=== PATIENT | male | born 1985 | race Caucasian/White ===

== ENCOUNTER 2017-06-09 08:45 | Emergency (ER) | payer OTHER ==
[~2017-06-09] VITALS: Ht 182.9 cm; Wt 73.1 kg
[~2017-06-09 08:45] MED LIST: AMPH30TA2 PO; DIVA500T5 PO; HMLI SC; INSDGI SC; PANT40TA PO; SERT1TAB71 PO
[2017-06-09 08:51] VITALS: TEMP 36.6; Ht 182.9 cm; Wt 73.1 kg
[2017-06-09] MEDS ORDERED: HYDROmorphone INJ 0.5 MG/0.5 ML SYR IV STA (09:00)
[2017-06-09] MEDS ORDERED: OPTIRAY 320 IV PRN (09:15)
[2017-06-09 09:30] LABS: BASO % 0.3 %; BASO ABS # 0.02 K/uL (0-0.2); COMPLETE YES; EOS % 2.3 %; HEMATOCRIT 42.6 % (42-52); IG% 0.2 %; LYMPH % 37.4 %; LYMPH ABS # 2.27 K/uL (1.2-3.4); MEAN CELL VOLUME 86.6 fL (80-100); MEAN CORPUSCULAR HEMOGLOBIN 30.1 pg (25-34); MEAN CORPUSCULAR HGB CONC 34.7 g/dl (32-36); MEAN PLATELET VOLUME 10.8 fL (7.4-10.4); MONO % 6.9 %; NEUT % 52.9 %; PLATELET COUNT 188 K/uL (130-400); RED BLOOD COUNT 4.92 M/uL (4.7-6.1); WHITE BLOOD COUNT 6.07 K/uL (4.8-10.8)
[2017-06-09 09:34] LABS: ISTAT CREATININE 0.8 mg/dl (0.6-1.3); ISTAT HEMOGLOBIN 15.6 g/dl (14.0-18.0); ISTAT IONIZED CALCIUM 1.18 mmol/l (1.12-1.32)
[2017-06-09 09:42] LABS: MANUAL MICROSCOPIC REQUIRED? YES; URINE APPEARANCE CLEAR (CLEAR); URINE BILIRUBIN NEG (NEG); URINE COLOR YELLOW; URINE NITRITE NEG (NEG); URINE PH 5.5 (4.5-7.5); URINE SPECIFIC GRAVITY 1.015 (1.000-1.030); UROBILINOGEN NEG (NEG)
[2017-06-09 09:44] LABS: REVIEW REQ? NO
[2017-06-09 09:49] LABS: URINE RBC 0-4 /hpf (0-4)
[2017-06-09 09:50] LABS: URINE BACTERIA NEG (NEG); ZZUR CULT IF INDIC CLEAN CATCH NO
[2017-06-09 10:04] LABS: BUN/CREATININE RATIO 16.9 (10-20); CALCIUM 9.1 mg/dl (8.5-10.1); CREATININE 0.93 mg/dl (0.60-1.40); POTASSIUM 4.5 mmol/L (3.5-5.1)
[2017-06-09] MEDS ORDERED: NovoLIN-R INSULIN PER UNIT CHARGE IV STA (10:14)
[2017-06-09] MEDS ORDERED: SODIUM CHLORIDE 0.9% 1000ML 1,000 ML IV STA (10:14)
[2017-06-09 10:15] LABS: BETA-HYDROXYBUTYRATE 6.74 mg/dL (0.2-2.81)
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
[2017-06-09] MEDS ORDERED: KETOROLAC TROMETHAMINE 30 MG/ML VIAL IV STA (11:25)
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
[2017-06-09 11:44] VITALS: BP 142/90; PULSE 86; O2SAT 99
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
== END 2017-06-09 11:56 | disposition home or self-care (01) ==
LOC: EDBD 08:45 → C.EDB 08:47
DX: S20.219A Contusion of unspecified front wall of thorax, initial encounter (principal); V43.52XA Car driver injured in collision with other type car in traffic accident, initial encounter; M54.9 Dorsalgia, unspecified; M25.532 Pain in left wrist; E11.9 Type 2 diabetes mellitus without complications; G89.29 Other chronic pain; F17.200 Nicotine dependence, unspecified, uncomplicated; Z79.4 Long term (current) use of insulin; Z79.899 Other long term (current) drug therapy; Z88.5 Allergy status to narcotic agent; Z83.3 Family history of diabetes mellitus; Z80.9 Family history of malignant neoplasm, unspecified; Z82.49 Family history of ischemic heart disease and other diseases of the circulatory system

== ENCOUNTER 2019-08-17 15:55 | Observation (INO) ==
--- NOTE | 2019-08-17 16:41 | CT Scan Report ---
CT chest wo con CLINICAL HISTORY: trauma w/ left chest wall pain COMPARISON STUDY: 06/09/2017 CT DOSE: 567.28 mGycm TECHNIQUE: CT of the thorax was performed from the thoracic inlet to the lung bases. Images are revi ewed in the axial, sagittal, and coronal planes. IV contrast was not administered for this examinatio n. A dose lowering technique was utilized adhering to the principles of ALARA. FINDINGS: Thyroid: Imaged portions of the thyroid gland are normal in appearance. Thoracic aorta: Evaluation for arterial injury is limited given the lack of intravenous contrast. The re is no evidence of thoracic aortic dilatation. There is no evidence for significant mediastinal hem atoma. There is no pericardial effusion Heart: The heart is normal in size and configuration, without pericardial effusion. Lungs and pleural spaces: There are no pleural effusions. There is no pneumomediastinum. There is no pneumothorax. There is no evidence for focal pulmonary consolidation or pulmonary contusion. Mediastinum: There is no evidence of pathologic mediastinal lymphadenopathy. There is a right-sided f at-containing Bochdalek hernia. There is borderline esophageal wall thickening similar to the precedi ng study Hayde: There is no evidence of pathologic hilar adenopathy given the limitations of a noncontrast stud y Axilla: There is no evidence of pathologic axillary lymphadenopathy Upper abdomen: Partially visualized upper abdominal viscera is within normal limits. Skeletal structures: No fractures are visualized. 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 There are congenital anomalies of the right fifth a nd sixth ribs. IMPRESSION: 1. No evidence of acute intrathoracic injury given the limitations of a noncontrast study 2. Fat-containing right-sided Bochdalek hernia 3. 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 4. 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 ACT 112: Negative or not required by law. Electronically signed by: Neville Quinones M.D. 08/17/2019 4:40 PM
[2019-08-17 16:49] LABS: Basophils # (auto) 0.02 K/uL (0-0.2); Basophils % (auto) 0.5 %; Eosinophils # (auto) 0.13 K/uL (0-0.5); Eosinophils % (auto) 3.3 %; Hemoglobin 14.7 g/dL (14.0-18.0); Immature Granulocytes # (auto) 0.01 K/uL (0.00-0.02); Immature Granulocytes % (auto) 0.3 %; Lymphocytes # (auto) 1.07 K/uL (1.2-3.4); Lymphocytes % (auto) 27.2 %; Mean Corpuscular Hemoglobin 29.9 pg (25-34); Mean Corpuscular Volume 85.5 fL (80-100); Mean Platelet Volume 11.5 fL (7.4-10.4); Monocytes # (auto) 0.32 K/uL (0.11-0.59); Monocytes % (auto) 8.1 %; Neutrophils # (auto) 2.39 K/uL (1.4-6.5); Neutrophils % (auto) 60.6 %; Nucleated RBC # (auto) 0.03 K/uL (0-0); Nucleated RBC % (auto) 0.8 %; Platelet Count 172 K/uL (130-400); RDW Coefficient of Variation 12.5 % (11.5-14.5); Red Blood Count 4.91 M/uL (4.7-6.1); White Blood Count 3.94 K/uL (4.8-10.8)
[2019-08-17 17:15] LABS: Acetaminophen < 2 ug/ml (10-30); Salicylate < 1.7 mg/dl (2.8-20)
[2019-08-17 17:19] LABS: Alanine Aminotransferase 18 U/L (12-78); Alkaline Phosphatase 73 U/L (45-117); Aspartate Aminotransferase 9 U/L (15-37); BUN Creatinine Ratio 16.6 (10-20); Blood Urea Nitrogen 17 mg/dl (7-18); Calcium 8.4 mg/dl (8.5-10.1); Carbon Dioxide 27 mmol/L (21-32); Chloride 101 mmol/L (98-107); Est GFR (African American) 112.2; Est GFR (Non-African American) 96.8; Glucose 436 mg/dl (70-99); Potassium 4.4 mmol/L (3.5-5.1); Sodium 134 mmol/L (136-145)
[2019-08-17 17:25] LABS: Albumin Globulin Ratio 0.9 (0.9-2); Bilirubin,Total 0.4 mg/dl (0.2-1); Globulin 3.5 gm/dl (2.5-4.0); Thyroid Stimulating Hormone 0.347 uIu/ml (0.300-4.500); Total Protein 6.5 gm/dl (6.4-8.2)
[2019-08-17 18:08] LABS: Appearance Urine Clear (Clear); Bacteria Urine Automated Negative (Negative); Bilirubin Urine Negative (Negative); Blood Urine Trace (Negative); Cast Urine Automated 0 /lpf (0-5); Color Urine Yellow; Glucose Urine UA 3+ (Negative); Ketones Urine Trace (Negative); Leukocyte Esterase Urine Negative (Negative); Nitrite Urine Negative (Negative); Protein Urine Negative (Negative); RBC Urine Automated 0-4 /hpf (0-4); Specific Gravity Urine 1.042 (1.000-1.030); Urobilinogen Urine Negative (Negative); WBC Urine Automated 0 /hpf (0-5)
[2019-08-17 18:41] LABS: Amphetamines+Metham, Urine Pos (Neg); Barbiturates, Urine Neg (Neg); Benzodiazepine, Urine Neg (Neg); Cocaine, Urine Neg (Neg); MDMA (Ecstacy), Urine Neg (Neg); Methadone, Urine Neg (Neg); Opiate, Urine Neg (Neg); Phencyclidine, Urine Neg (Neg)
--- NOTE | 2019-08-17 21:06 | Emergency Department Note ---
Entered by Silvestre Fuentes acting as a scribe for History of Present Illness General Chief complaint: Mental Health Evaluation Stated complaint: MENTAL HEALTH EVAL, AND RIB INJURY Time Seen by Provider: 08/17/19 15:55 Source: patient Limitations: no limitations History of Present Illness Onset (ago): day(s) 2 Location: left (ribs) Pain Consistency: + constant Maximum Pain Intensity: 7 Quality: + constant Associated symptoms: + denies other symptoms (head or neck pain) and + other (suicidal ideations, meth use) The patient is a 34 year old male who presents to the Emergency Room for a mental health evaluation. The patient states he has been clean from drugs for 6 months until two weeks ago. He states he attempted suicide by using IV methamphetamine two days ago. He states he has PTSD, anxiety, and depression. He notes he has not been taking his medications for months. He states he fell from standing up two days ago when he was attempting suicide. He states he hit his ribs on a toilet. He denies having head or neck pain. He states he has not tried to commit suicide before. He states he wants to be admitted. He notes he has type 1 diabetes. Home Medications Home Medications Medication Instructions Recorded Confirmed Type insulin aspart U-100 [Novolog 1 sliding scale dose SUBCUT 02/08/19 02/08/19 History U-100 Insulin aspart] USEASDIRECTD insulin glargine [Lantus U-100 25 unit SUBCUT BID 02/08/19 02/08/19 History Insulin] Allergies Allergy/AdvReac Type Severity Reaction Status Date / Time morphine Allergy Intermediate HIVES Verified 02/08/19 16:02 Past Med/Surg History Medical History GI bleed Hyperglycemia No significant family history Superficial thrombophlebitis Surgical History No significant past surgical history Social History Preferred Language: Turkish Feels Safe at Home: Yes Smoking Status: Current every day smoker Review of Systems See HPI for pertinent positives & negatives. and A total of 10 systems reviewed and were otherwise negative Physical Exam Vital Signs Vital Signs - 24 hr 08/17/19 16:04 08/17/19 17:55 Temperature 36.6 C Temperature Source Oral Pulse Rate 107 H Pulse Rate [Right Radial] 92 H Pulse Rhythm [Right Radial] Regular Pulse Strength [Right Radial] Normal Respiratory Rate 20 16 Respiratory Effort / Characteristics Non-Labored Spontaneous Respiratory Depth Normal Respiratory Pattern Regular Blood Pressure 137/88 Blood Pressure [Right Arm] 144/88 H Blood Pressure Mean 104 Blood Pressure Mean [Right Arm] 106 Blood Pressure Position [Right Arm] Lying Pulse Oximetry 95 96 Oxygen Delivery Method Room Air Room Air Sepsis Recent Fever Within 48 Hours No Sepsis New/Unexplained Change in Mental Status No Sepsis Action Taken by Nursing No Action Required GENERAL: Non-toxic . Sitting up in bed. Annoyed. EYE EXAM: normal conjunctiva, PERRL and EOM's grossly intact OROPHARYNX: no exudate, no erythema, lips, buccal mucosa, and tongue normal and mucous membranes are moist HEAD: NC/AT NECK: supple, no nuchal rigidity, no adenopathy, non-tender LUNGS: Clear to auscultation. Normal chest wall mechanics HEART: no murmurs, S1 normal and S2 normal CHEST: Tenderness over the left anterior chest wall, ribs 4 through 7. ABDOMEN: abdomen soft, non-tender, normo-active bowel sounds, no masses, no rebound or guarding. BACK: Back is symmetrical on inspection and there is no deformity, no midline tenderness, no CVA tenderness. SKIN: no rashes and no bruising UPPER EXTREMITIES: upper extremities are grossly normal. LOWER EXTREMITIES: No pitting edema. NEURO EXAM: Normal sensorium, cranial nerves II-XII grossly intact, normal speech, no gross weakness of arms, no gross weakness of legs. PSYCH: Admits to with suicide attempt and overdose. Course Course ED COURSE: Vital signs were reviewed and showed hypertension The patients medical record was reviewed The above diagnostic studies were performed and reviewed. ED treatments and interventions as stated above. 9: The patient was evaluated in room A2. A complete history and physical examination was performed. 1819: I reevaluated the patient. I updated the patient. He is agitated. He notes he drank right before he came to the ED. 1927: Upon reevaluation, the patient is getting admitted. He states he was taking 14 mg of Xanax and drinking half a case of beer a day. I discussed my findings with the patient and he understands and agrees with the treatment plan. 1939: I discussed the patient's case with Dr. Iyer - [facility] Hospitalist. He will evaluate the patient for further management. Based on the patients age, coexisting illnesses, exam and lab findings the decision to treat as an inpatient was made. The patient remained stable while under my care. The patient will be evaluated for further management. Medical Decision Making Differential Diagnosis Differential diagnoses considered include mood disorder, infection, hypoglycemia, electrolyte abnormalities, cardiac sources, intracerebral event, toxicologic, neurologic, major intracranial, cervical, spinal, thoracic, abdominal, pelvic and neurologic injury. Fracture, contusion, sprain, strain, laceration, abrasions included as well. Medical Records Attestation: I reviewed the patient's medical records. Home Medications Current Medication List: was personally reviewed by me Laboratory Data Attestation: I reviewed the patient's lab results. Result diagrams: 08/17/19 16:35 08/17/19 16:35 Lab Results 08/17/19 08/17/19 08/17/19 Range/Units 16:35 16:35 16:35 WBC 3.94 L (4.8-10.8) K/uL RBC 4.91 (4.7-6.1) M/uL Hgb 14.7 (14.0-18.0) g/dL Hct 42.0 (42-52) % MCV 85.5 (80-100) fL MCH 29.9 (25-34) pg MCHC 35.0 (32-36) g/dL RDW Std Deviation 39.0 (36.4-46.3) fL RDW Coeff of Yahir 12.5 (11.5-14.5) % Plt Count 172 (130-400) K/uL MPV 11.5 H (7.4-10.4) fL Immature Gran % (Auto) 0.3 % Neut % (Auto) 60.6 % Lymph % (Auto) 27.2 % Knott % (Auto) 8.1 % Eos % (Auto) 3.3 % Baso % (Auto) 0.5 % Immature Gran # (Auto) 0.01 (0.00-0.02) K/uL Neut # (Auto) 2.39 (1.4-6.5) K/uL Lymph # (Auto) 1.07 L (1.2-3.4) K/uL Knott # (Auto) 0.32 (0.11-0.59) K/uL Eos # (Auto) 0.13 (0-0.5) K/uL Baso # (Auto) 0.02 (0-0.2) K/uL Absolute Nucleated RBC 0.03 H (0-0) K/uL Nucleated RBC % (auto) 0.8 % Sodium 134 L (136-145) mmol/L Potassium 4.4 (3.5-5.1) mmol/L Chloride 101 (98-107) mmol/L Carbon Dioxide 27 (21-32) mmol/L Anion Gap 6.0 (3-11) BUN 17 (7-18) mg/dl Creatinine 1.02 (0.6-1.4) mg/dl Est Cr Clr Drug Dosing Not Reportable Est GFR ( Amer) 112.2 Est GFR (Non-Af Amer) 96.8 BUN/Creatinine Ratio 16.6 (10-20) Glucose 436 H* (70-99) mg/dl POC Glucose (70-99) mg/dl Calcium 8.4 L (8.5-10.1) mg/dl Total Bilirubin 0.4 (0.2-1) mg/dl AST 9 L (15-37) U/L ALT 18 (12-78) U/L Alkaline Phosphatase 73 (45-117) U/L Total Protein 6.5 (6.4-8.2) gm/dl Albumin 3.0 L (3.4-5.0) gm/dl Globulin 3.5 (2.5-4.0) gm/dl Albumin/Globulin Ratio 0.9 (0.9-2) Beta-Hydroxybutyric Acd (0.2-2.81) mg/dl TSH 0.347 (0.300-4.500) uIu/ml Urine Color Urine Appearance (Clear) Urine pH (4.5-7.5) Ur Specific [place] (1.000-1.030) Urine Protein (Negative) Urine Glucose (UA) (Negative) Urine Ketones (Negative) Urine Blood (Negative) Urine Nitrite (Negative) Urine Bilirubin (Negative) Urine Urobilinogen (Negative) Ur Leukocyte Esterase (Negative) Urine WBC (Auto) (0-5) /hpf Urine RBC (Auto) (0-4) /hpf U Hyaline Cast (Auto) (0-5) /lpf U Epithel Cells (Auto) (0-5) /lpf Urine Bacteria (Auto) (Negative) Salicylates < 1.7 L (2.8-20) mg/dl Urine Opiates Screen (Neg) Ur Methadone, Qual (Neg) Acetaminophen < 2 L (10-30) ug/ml Urine Barbiturates (Neg) Ur Phencyclidine (PCP) (Neg) U Amphetamin/Meth Scrn (Neg) MDMA (Ecstasy) Screen (Neg) U Benzodiazepines Scrn (Neg) Ur Cocaine Metabolite (Neg) U Marijuana (THC) Screen (Neg) Ethyl Alcohol mg/dL (0-3) mg/dl 08/17/19 08/17/19 08/17/19 Range/Units 16:35 17:55 17:55 WBC (4.8-10.8) K/uL RBC (4.7-6.1) M/uL Hgb (14.0-18.0) g/dL Hct (42-52) % MCV (80-100) fL MCH (25-34) pg MCHC (32-36) g/dL RDW Std Deviation (36.4-46.3) fL RDW Coeff of Yahir (11.5-14.5) % Plt Count (130-400) K/uL MPV (7.4-10.4) fL Immature Gran % (Auto) % Neut % (Auto) % Lymph % (Auto) % Knott % (Auto) % Eos % (Auto) % Baso % (Auto) % Immature Gran # (Auto) (0.00-0.02) K/uL Neut # (Auto) (1.4-6.5) K/uL Lymph # (Auto) (1.2-3.4) K/uL Knott # (Auto) (0.11-0.59) K/uL Eos # (Auto) (0-0.5) K/uL Baso # (Auto) (0-0.2) K/uL Absolute Nucleated RBC (0-0) K/uL Nucleated RBC % (auto) % Sodium (136-145) mmol/L Potassium (3.5-5.1) mmol/L Chloride (98-107) mmol/L Carbon Dioxide (21-32) mmol/L Anion Gap (3-11) BUN (7-18) mg/dl Creatinine (0.6-1.4) mg/dl Est Cr Clr Drug Dosing Est GFR ( Amer) Est GFR (Non-Af Amer) BUN/Creatinine Ratio (10-20) Glucose (70-99) mg/dl POC Glucose (70-99) mg/dl Calcium (8.5-10.1) mg/dl Total Bilirubin (0.2-1) mg/dl AST (15-37) U/L ALT (12-78) U/L Alkaline Phosphatase (45-117) U/L Total Protein (6.4-8.2) gm/dl Albumin (3.4-5.0) gm/dl Globulin (2.5-4.0) gm/dl Albumin/Globulin Ratio (0.9-2) Beta-Hydroxybutyric Acd (0.2-2.81) mg/dl TSH (0.300-4.500) uIu/ml Urine Color Yellow Urine Appearance Clear (Clear) Urine pH 5.0 (4.5-7.5) Ur Specific [place] 1.042 H (1.000-1.030) Urine Protein Negative (Negative) Urine Glucose (UA) 3+ H (Negative) Urine Ketones Trace H (Negative) Urine Blood Trace H (Negative) Urine Nitrite Negative (Negative) Urine Bilirubin Negative (Negative) Urine Urobilinogen Negative (Negative) Ur Leukocyte Esterase Negative (Negative) Urine WBC (Auto) 0 (0-5) /hpf Urine RBC (Auto) 0-4 (0-4) /hpf U Hyaline Cast (Auto) 0 (0-5) /lpf U Epithel Cells (Auto) 5-10 H (0-5) /lpf Urine Bacteria (Auto) Negative (Negative) Salicylates (2.8-20) mg/dl Urine Opiates Screen Neg (Neg) Ur Methadone, Qual Neg (Neg) Acetaminophen (10-30) ug/ml Urine Barbiturates Neg (Neg) Ur Phencyclidine (PCP) Neg (Neg) U Amphetamin/Meth Scrn Pos H (Neg) MDMA (Ecstasy) Screen Neg (Neg) U Benzodiazepines Scrn Neg (Neg) Ur Cocaine Metabolite Neg (Neg) U Marijuana (THC) Screen Neg (Neg) Ethyl Alcohol mg/dL < 3.0 (0-3) mg/dl 08/17/19 Range/Units 18:14 WBC (4.8-10.8) K/uL RBC (4.7-6.1) M/uL Hgb (14.0-18.0) g/dL Hct (42-52) % MCV (80-100) fL MCH (25-34) pg MCHC (32-36) g/dL RDW Std Deviation (36.4-46.3) fL RDW Coeff of Yahir (11.5-14.5) % Plt Count (130-400) K/uL MPV (7.4-10.4) fL Immature Gran % (Auto) % Neut % (Auto) % Lymph % (Auto) % Knott % (Auto) % Eos % (Auto) % Baso % (Auto) % Immature Gran # (Auto) (0.00-0.02) K/uL Neut # (Auto) (1.4-6.5) K/uL Lymph # (Auto) (1.2-3.4) K/uL Knott # (Auto) (0.11-0.59) K/uL Eos # (Auto) (0-0.5) K/uL Baso # (Auto) (0-0.2) K/uL Absolute Nucleated RBC (0-0) K/uL Nucleated RBC % (auto) % Sodium (136-145) mmol/L Potassium (3.5-5.1) mmol/L Chloride (98-107) mmol/L Carbon Dioxide (21-32) mmol/L Anion Gap (3-11) BUN (7-18) mg/dl Creatinine (0.6-1.4) mg/dl Est Cr Clr Drug Dosing Est GFR ( Amer) Est GFR (Non-Af Amer) BUN/Creatinine Ratio (10-20) Glucose (70-99) mg/dl POC Glucose 252 H (70-99) mg/dl Calcium (8.5-10.1) mg/dl Total Bilirubin (0.2-1) mg/dl AST (15-37) U/L ALT (12-78) U/L Alkaline Phosphatase (45-117) U/L Total Protein (6.4-8.2) gm/dl Albumin (3.4-5.0) gm/dl Globulin (2.5-4.0) gm/dl Albumin/Globulin Ratio (0.9-2) Beta-Hydroxybutyric Acd (0.2-2.81) mg/dl TSH (0.300-4.500) uIu/ml Urine Color Urine Appearance (Clear) Urine pH (4.5-7.5) Ur Specific [place] (1.000-1.030) Urine Protein (Negative) Urine Glucose (UA) (Negative) Urine Ketones (Negative) Urine Blood (Negative) Urine Nitrite (Negative) Urine Bilirubin (Negative) Urine Urobilinogen (Negative) Ur Leukocyte Esterase (Negative) Urine WBC (Auto) (0-5) /hpf Urine RBC (Auto) (0-4) /hpf U Hyaline Cast (Auto) (0-5) /lpf U Epithel Cells (Auto) (0-5) /lpf Urine Bacteria (Auto) (Negative) Salicylates (2.8-20) mg/dl Urine Opiates Screen (Neg) Ur Methadone, Qual (Neg) Acetaminophen (10-30) ug/ml Urine Barbiturates (Neg) Ur Phencyclidine (PCP) (Neg) U Amphetamin/Meth Scrn (Neg) MDMA (Ecstasy) Screen (Neg) U Benzodiazepines Scrn (Neg) Ur Cocaine Metabolite (Neg) U Marijuana (THC) Screen (Neg) Ethyl Alcohol mg/dL (0-3) mg/dl Imaging Data Radiologist's Impression: Radiology results as stated below per my review and the radiologist's interpretation: CT chest wo con CLINICAL HISTORY: trauma w/ left chest wall pain COMPARISON STUDY: 06/09/2017 CT DOSE: 567.28 mGycm TECHNIQUE: CT of the thorax was performed from the thoracic inlet to the lung bases. Images are reviewed in the axial, sagittal, and coronal planes. IV contra st was not administered for this examination. A dose lowering technique was utilized adhering to the principles of ALARA. FINDINGS: Thyroid: Imaged portions of the thyroid gland are normal in appearance. Thoracic aorta: Evaluation for arterial injury is limited given the lack of intravenous contrast. There is no evidence of thoracic aortic dilatation. There is no evidence for significant mediastinal hematoma. There is no pericardial effusion Heart: The heart is normal in size and configuration, without pericardial effusion. Lungs and pleural spaces: There are no pleural effusions. There is no pneumomediastinum. There is no pneumothorax. There is no evidence for focal pulmonary consolidation or pulmonary contusion. Mediastinum: There is no evidence of pathologic mediastinal lymphadenopathy. There is a right-sided fat-containing Bochdalek hernia. There is borderline esophageal wall thickening similar to the preceding study Hayde: There is no evidence of pathologic hilar adenopathy given the limitations of a noncontrast study Axilla: There is no evidence of pathologic axillary lymphadenopathy Upper abdomen: Partially visualized upper abdominal viscera is within normal limits. Skeletal structures: No fractures are visualized. 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 IMPRESSION: 1. No evidence of acute intrathoracic injury given the limitations of a noncontrast study 2. Fat-containing right-sided Bochdalek hernia 3. 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 4. 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 ACT 112: Negative or not required by law. Electronically signed by: Neville Quinones M.D. 08/17/2019 4:40 PM Blood Pressure Blood Pressure Findings: Elevated blood pressure Blood Pressure Disposition: further management by hospitalist JAX Narrative Patient is a 34-year-old male who presents the ER does. He presented there as he notes he tried to overdose on methamphetamine 2 days ago. Initially denies using anything else other than methamphetamine and intermittent alcohol use. Blood work was obtained. Labs show mild leukopenia at 3.9. No significant leukocytosis. BMP with mild hypokalemia. Glucose was elevated at 436. He is a type I diabetic. He given self insulin prior to arrival. Trend down to 252. He is not a gap. Nothing to suggest DKA. LFTs were unremarkable. TSH was normal. UA was clean. On reevaluation patient notes that he uses 14 mg of Xanax a day for the past 2 weeks in combination with drinking a half a case of alcohol per day. Benzos are negative on urine drug test. Unable to confirm alcohol. With these statements will be extremely difficult to get this gentleman placed at any point. Updated with bedside. Discussed with hospitalist for observation secondary to possible withdrawal although we knew will need to come in from a psychiatric standpoint with the attempted suicide. Indication: Medical clearance Patient, with Family History of hypertension, was first seen at 1559 hrs and the observation time began at 1559 hrs and was necessary in order to determine if the patient was stable enough for disposition to psych and avoid unnecessary admission. Upon re-evaluation, 1940 hours of observation revealed that the patient should be admitted. Disposition date and time 08/17/2019 at 1940. Impression & Plan Acute flank pain, Suicidal ideations, Drug abuse, Alcohol abuse, Hyperglycemia Discharge Plan Visit Data Chief Complaint: Mental Health Evaluation Stated Complaint: MENTAL HEALTH EVAL, AND RIB INJURY ED Provider: Dru Arias Discharge Problem: Acute flank pain, Suicidal ideations, Drug abuse, Alcohol abuse, Hyperglycemia Forms Stand Alone Forms: My [facility], Suicide Prevention Resources Prescriptions Prescriptions: No Action Lantus U-100 Insulin 100 unit/mL Solution 25 unit SUBCUT BID RF: 0 Novolog U-100 Insulin aspart 100 unit/mL Solution 1 sliding scale dose SUBCUT USEASDIRECTD RF: 0 Referrals Referrals: PCP,NO [Primary Care Provider] - The scribe's documentation has been prepared under my direction and personally reviewed by me in its entirety. I confirm that the note above accurately reflects all work, treatment, procedures, and medical decision making performed by me.
--- NOTE | 2019-08-17 21:26 | History & Physical Report ---
Date of Service August 17, 2019 Assessment & Plan (1) Alcohol abuse: Mr. Rigo Vazquez is a 34 y/o male with past medical hx of DM1, substance abuse, prior psych hospitalizations, anxiety, depression, who presented for EtOH/Drug crisis. - Medical Clearance prior to discharge to rehab - No current suicidal ideations but will give 1-on-1 since suicide attempt a couple of days ago. - AWSS protocol with Ativan 1mg PO PRN per protocol; at risk for withdrawal, reports no prior EtOH withdrawals/DTs/seizure hx - EtOH was negative, he is about possibly 10 hours from last drink (approx 9- 11am) - Banana bag x1 now, Thiamine PO qAM, folic acid PO qAM Code: Full Code DVT ppx: Lovenox 40mg subq q24h FENGI: Type 1 Diabetic, safe tray Dispo: PCU/tele (2) Drug abuse: - reported benzo use daily for 2 weeks - reported Crystal meth use for 2 weeks, last used 2-3 days ago via IV but usually smokes/snorts - Drug UA only positive for Amphetamines; meth confirm pending - negative for benzos, at risk for withdrawal, monitor - Negative Acetaminophen and ASA (3) Suicidal ideations: - No current suicidal ideations but will give 1-on-1 since suicide attempt a couple of days ago. (4) Hyperglycemia: Type 1 DM, says is on 70/30 insulin Will treat with Levemir 20units subq BID CF 20 Ratio 1:7 glucose ACHS Currently in 250s, no anion gap, ketones in urine, but B-hydroxy acid wasn't reported bc of hemolysis of sample (5) Rib contusion: - negative chest CT for fracture - trace blood but non-specific for kidney injury, trend creatinine in AM History of Present Illness Chief Complaint: Drug/EtOH Withdrawal Primary Care Provider: NO PCP Mr. Rigo Vazquez is a 34 y/o male with past medical hx of DM1, substance abuse, prior psych hospitalizations, anxiety, depression, who presented for EtOH/Drug crisis. He notes that has a history of substance abuse and was perviously clean for the past 6 months before relapsing. He notes that he started to use Crystal Meth about 2 weeks ago with snorting and smoking. He states that he attempted suicide about 2 days ago by injecting Crystal Meth IV into his Left AC and passed out and hit his left ribs on bathroom sink. He notes that he doesn't share needles, no Hx of HIV, Hep B or C. He notes drinking alcohol daily for many years usually 6-12 beers per day and last drink was this AM when he had a Alba mixed drink. He denies prior alcohol withdrawal. He notes not taking his insulin for his Diabetes type 1 as well. He notes that he would like to go to rehab. He notes being on psych meds prior but ran out of his meds then started to medicate himself via street drugs. He notes he has been using Benzos "off the street" to help with his Crystal Meth come downs. Rigo reported to staff taking 6-13 Xanax per day. He notes not taking any benzos or meth for the past 2-3 days. He states he has had some hallucinations visual of shadows, none currently, no auditory. He doesn't have any current suicidal ideations; he wants help with his current anxiety and help with sobriety. He would to go to rehab. ED requested admission for medical clearance prior to discharge to rehab. Currently, he only has pain to his left ribs from fall; his Chest CT was negative for fractures. No treatments given in ED except for food. He did have a glucose in lab in 400s, but recent POC was 250. Urine Drug positive for Amph, negative for EtOH and benzos. Allergies Allergy/AdvReac Type Severity Reaction Status Date / Time morphine Allergy Intermediate HIVES Verified 08/17/19 21:28 Home Medications Home Medications Medication Instructions Recorded Confirmed Type alprazolam [Xanax] 0 mg PO UD PRN 08/17/19 08/17/19 History insulin asp prt-insulin aspart 25 unit SUBCUT BID 08/17/19 08/17/19 History [Novolog Mix 70-30FlexPen U-100] Past Med/Surg History Medical History GI bleed Hyperglycemia No significant family history Superficial thrombophlebitis Surgical History No significant past surgical history Social History Preferred Language: Italian Beliefs That Will Affect Care: None Current Living Situation: Family Feels Safe at Home: Yes Safety Concerns: Feels Safe At This Time Smoking Status: Current every day smoker Cigarettes Per Day: 20 ; Hx Alcohol Use: Yes Alcohol type: hard liquor Hx Substance Use: Yes substance use type: IV drugs and methamphetamine Substance Use Type Other:: 08-16-19 Review of Systems Review of Systems: Limited by mental health condition Constitutional: no fever and no chills Eyes: no eye pain and no worsening vision Ear, Nose, Mouth, Throat: no nasal congestion and no sore throat Respiratory: no dyspnea and no hemoptysis Cardiovascular: no lightheadedness and no edema Gastrointestinal: no abdominal pain, no nausea and no vomiting Genitourinary: no dysuria and no difficulty urinating Musculoskeletal: no back pain and no neck pain Neurologic: no generalized weakness and no numbness Psychiatric: as per Subjective / HPI Physical Exam Constitutional: WD/WN, vitals as above comfortable; no acute distress Eyes: PERRL, conjunctivae normal, anicteric sclerae ENMT: external ear and nose normal, oropharynx normal Neck: normal visual inspection and trachea midline Respiratory: normal respiratory effort, lungs clear to auscultation Cardiovascular: RRR, no murmur, no edema left sided chest wall tenderness reproducing pain Gastrointestinal (Abdomen): Percussion/Palpation: abdomen soft; abdomen nontender, no guarding and abdomen not rigid Musculoskeletal: Head/Neck/Chest: normocephalic and head atraumatic Extremities: strength 5/5 throughout Skin: no rashes, warm and dry Neurologic: moves all extremities and awake Psychiatric: Orientation: alert and oriented x 3 Affect: + anxious affect Mood: + anxious mood Suicidal Thoughts: denies suicidal thoughts Homicidal Thoughts: denies homicidal thoughts Results & Data Vital Signs (Past 12 Hours) Vital Signs Temp Pulse Pulse Resp BP BP Pulse Ox 08/17/19 17:55 92 H 16 144/88 H 96 08/17/19 16:04 36.6 C 107 H 20 137/88 95 Laboratory Results Laboratory Results - last 24 hr 08/17/19 08/17/19 08/17/19 16:35 16:35 16:35 WBC 3.94 L RBC 4.91 Hgb 14.7 Hct 42.0 MCV 85.5 MCH 29.9 MCHC 35.0 RDW Std Deviation 39.0 RDW Coeff of Yahir 12.5 Plt Count 172 MPV 11.5 H Immature Gran % (Auto) 0.3 Neut % (Auto) 60.6 Lymph % (Auto) 27.2 [place] % (Auto) 8.1 Eos % (Auto) 3.3 Baso % (Auto) 0.5 Immature Gran # (Auto) 0.01 Neut # (Auto) 2.39 Lymph # (Auto) 1.07 L [place] # (Auto) 0.32 Eos # (Auto) 0.13 Baso # (Auto) 0.02 Absolute Nucleated RBC 0.03 H Nucleated RBC % (auto) 0.8 Sodium 134 L Potassium 4.4 Chloride 101 Carbon Dioxide 27 Anion Gap 6.0 BUN 17 Creatinine 1.02 Est Cr Clr Drug Dosing Not Reportable Est GFR ( Amer) 112.2 Est GFR (Non-Af Amer) 96.8 BUN/Creatinine Ratio 16.6 Glucose 436 H* POC Glucose Calcium 8.4 L Total Bilirubin 0.4 AST 9 L ALT 18 Alkaline Phosphatase 73 Total Protein 6.5 Albumin 3.0 L Globulin 3.5 Albumin/Globulin Ratio 0.9 Beta-Hydroxybutyric Acd TSH 0.347 Urine Color Urine Appearance Urine pH Ur Specific [place] Urine Protein Urine Glucose (UA) Urine Ketones Urine Blood Urine Nitrite Urine Bilirubin Urine Urobilinogen Ur Leukocyte Esterase Urine WBC (Auto) Urine RBC (Auto) U Hyaline Cast (Auto) U Epithel Cells (Auto) Urine Bacteria (Auto) Salicylates < 1.7 L Urine Opiates Screen Ur Methadone, Qual Acetaminophen < 2 L Urine Barbiturates Ur Phencyclidine (PCP) U Amphetamines Confirm U Amphetamin/Meth Scrn U Methamphetamin Confrm MDMA (Ecstasy) Screen U Benzodiazepines Scrn Ur Cocaine Metabolite U Marijuana (THC) Screen Drug Screen Comment Ethyl Alcohol mg/dL 08/17/19 08/17/19 08/17/19 16:35 17:55 17:55 WBC RBC Hgb Hct MCV MCH MCHC RDW Std Deviation RDW Coeff of Yahir Plt Count MPV Immature Gran % (Auto) Neut % (Auto) Lymph % (Auto) [place] % (Auto) Eos % (Auto) Baso % (Auto) Immature Gran # (Auto) Neut # (Auto) Lymph # (Auto) [place] # (Auto) Eos # (Auto) Baso # (Auto) Absolute Nucleated RBC Nucleated RBC % (auto) Sodium Potassium Chloride Carbon Dioxide Anion Gap BUN Creatinine Est Cr Clr Drug Dosing Est GFR ( Amer) Est GFR (Non-Af Amer) BUN/Creatinine Ratio Glucose POC Glucose Calcium Total Bilirubin AST ALT Alkaline Phosphatase Total Protein Albumin Globulin Albumin/Globulin Ratio Beta-Hydroxybutyric Acd TSH Urine Color Yellow Urine Appearance Clear Urine pH 5.0 Ur Specific [place] 1.042 H Urine Protein Negative Urine Glucose (UA) 3+ H Urine Ketones Trace H Urine Blood Trace H Urine Nitrite Negative Urine Bilirubin Negative Urine Urobilinogen Negative Ur Leukocyte Esterase Negative Urine WBC (Auto) 0 Urine RBC (Auto) 0-4 U Hyaline Cast (Auto) 0 U Epithel Cells (Auto) 5-10 H Urine Bacteria (Auto) Negative Salicylates Urine Opiates Screen Neg Ur Methadone, Qual Neg Acetaminophen Urine Barbiturates Neg Ur Phencyclidine (PCP) Neg U Amphetamines Confirm U Amphetamin/Meth Scrn Pos H U Methamphetamin Confrm MDMA (Ecstasy) Screen Neg U Benzodiazepines Scrn Neg Ur Cocaine Metabolite Neg U Marijuana (THC) Screen Neg Drug Screen Comment Ethyl Alcohol mg/dL < 3.0 08/17/19 08/17/19 08/17/19 17:55 18:14 20:59 WBC RBC Hgb Hct MCV MCH MCHC RDW Std Deviation RDW Coeff of Yahir Plt Count MPV Immature Gran % (Auto) Neut % (Auto) Lymph % (Auto) [place] % (Auto) Eos % (Auto) Baso % (Auto) Immature Gran # (Auto) Neut # (Auto) Lymph # (Auto) [place] # (Auto) Eos # (Auto) Baso # (Auto) Absolute Nucleated RBC Nucleated RBC % (auto) Sodium Potassium Chloride Carbon Dioxide Anion Gap BUN Creatinine Est Cr Clr Drug Dosing Est GFR ( Amer) Est GFR (Non-Af Amer) BUN/Creatinine Ratio Glucose POC Glucose 252 H 280 H Calcium Total Bilirubin AST ALT Alkaline Phosphatase Total Protein Albumin Globulin Albumin/Globulin Ratio Beta-Hydroxybutyric Acd TSH Urine Color Urine Appearance Urine pH Ur Specific [place] Urine Protein Urine Glucose (UA) Urine Ketones Urine Blood Urine Nitrite Urine Bilirubin Urine Urobilinogen Ur Leukocyte Esterase Urine WBC (Auto) Urine RBC (Auto) U Hyaline Cast (Auto) U Epithel Cells (Auto) Urine Bacteria (Auto) Salicylates Urine Opiates Screen Ur Methadone, Qual Acetaminophen Urine Barbiturates Ur Phencyclidine (PCP) U Amphetamines Confirm Pending U Amphetamin/Meth Scrn U Methamphetamin Confrm Pending MDMA (Ecstasy) Screen U Benzodiazepines Scrn Ur Cocaine Metabolite U Marijuana (THC) Screen Drug Screen Comment Pending Ethyl Alcohol mg/dL Diagnostic Findings CT Chest W/o 1. No evidence of acute intrathoracic injury given the limitations of a noncontrast study 2. Fat-containing right-sided Bochdalek hernia 3. 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 4. 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 Code Status & VTE Plan Code Status Full Code VTE Prophylaxis Plan VTE Prophylaxis will be ordered: Yes Supervising Physician Co-Signing Physician Notes Patient was seen and examined by me personally. I reviewed the chart, the orders and discussed the case in detail with Dr. Gilberto Rodriguez DO . I read this H&P and agree with its contents to entirety.
[2019-08-17] MEDS: INSULIN GLARGINE SOLOSTAR 100 UNITS/ML 3 ML PEN SC SCH (21:45)
[2019-08-17] MEDS ORDERED: POLYETHYLENE (MIRALAX) 17 GM PACK PO PRN (22:35)
[2019-08-17] MEDS ORDERED: CARBOHYDRATES FOR HYPOGLYCEMIA PO PRN (22:35)
[2019-08-17] MEDS ORDERED: GLUCOSE 10 TABS/TUBE PO PRN (22:35)
[2019-08-17] MEDS ORDERED: MAGNESIUM HYDROXIDE SUSP 30 ML UDC PO PRN (22:35)
[2019-08-17] MEDS ORDERED: GLUCOSE 40% GEL 15 GM TUBE PO PRN (22:35)
[2019-08-17] MEDS ORDERED: DEXTROSE 50% 50 ML SYRINGE IV PRN (22:35)
[2019-08-17] MEDS ORDERED: GLUCAGON FOR INJ 1 MG VIAL SQ PRN (22:35)
[2019-08-17] MEDS ORDERED: LORazepam 1 MG TAB PO PRN (22:35)
[2019-08-17] MEDS ORDERED: TRAZODONE HCL 50 MG TAB PO PRN (22:35)
[2019-08-17] MEDS ORDERED: ALUMINUM/MAGNESIUM SUSP 30 ML UDC PO PRN (22:35)
[2019-08-17] MEDS ORDERED: ONDANSETRON INJ 2 MG/ML 2 ML VIAL IV PRN (22:35)
[2019-08-17] MEDS ORDERED: ACETAMINOPHEN 325 MG TAB PO PRN (22:35)
[2019-08-17] MEDS ORDERED: LORazepam 1 MG TAB PO STA (22:54)
[2019-08-17] MEDS ORDERED: THIAMINE HCL 100 MG TAB PO STA (22:56)
[2019-08-17] MEDS ORDERED: MULTI-VITAMIN INFUSION 10 ML, THIAMINE HCL 100 MG, FOLIC ACID 1 MG in SODIUM CHLORIDE 0... IV ONE (23:00)
[2019-08-18] MEDS: ENOXAPARIN INJ 40 MG/0.4 ML SYR SQ SCH ×2 (00:02→23:35)
[2019-08-18] MEDS: INSULIN ASPART 100 UNITS/ML 3 ML PEN SC SCH ×5 (00:07→20:38)
--- NOTE | 2019-08-18 03:32 | Billing Data ---
Date of Service August 17, 2019 Coding Level of Care Code 52647 OBS Care - Level 3
[2019-08-18 06:44] LABS: Basophils # (auto) 0.01 K/uL (0-0.2); Basophils % (auto) 0.2 %; Eosinophils # (auto) 0.19 K/uL (0-0.5); Eosinophils % (auto) 4.5 %; Hematocrit (blood only) 40.7 % (42-52); Immature Granulocytes # (auto) 0.01 K/uL (0.00-0.02); Immature Granulocytes % (auto) 0.2 %; Lymphocytes # (auto) 2.03 K/uL (1.2-3.4); Lymphocytes % (auto) 48.1 %; Mean Corpuscular Hemoglobin 29.9 pg (25-34); Mean Corpuscular Hgb Conc 34.4 g/dL (32-36); Mean Platelet Volume 11.3 fL (7.4-10.4); Monocytes # (auto) 0.45 K/uL (0.11-0.59); Monocytes % (auto) 10.7 %; Neutrophils # (auto) 1.53 K/uL (1.4-6.5); Neutrophils % (auto) 36.3 %; Platelet Count 183 K/uL (130-400); RDW Coefficient of Variation 12.7 % (11.5-14.5); RDW Standard Deviation 40.5 fL (36.4-46.3); Red Blood Count 4.68 M/uL (4.7-6.1); White Blood Count 4.22 K/uL (4.8-10.8)
[2019-08-18 07:28] LABS: Albumin Globulin Ratio 0.8 (0.9-2); Albumin Level 2.6 gm/dl (3.4-5.0); BUN Creatinine Ratio 24.8 (10-20); Bilirubin,Total 0.2 mg/dl (0.2-1); Calcium 8.3 mg/dl (8.5-10.1); Creatinine Clr Calc Pharmacy 159.2 ml/min; Est GFR (African American) 143.1; Est GFR (Non-African American) 123.4; Globulin 3.1 gm/dl (2.5-4.0); Potassium 3.5 mmol/L (3.5-5.1); Total Protein 5.7 gm/dl (6.4-8.2)
[2019-08-18 08:49] LABS: Estimated Average Glucose 306 mg/dl; Hemoglobin A1C 12.3 % (4.5-5.6)
[2019-08-18] MEDS: INSULIN GLARGINE SOLOSTAR 100 UNITS/ML 3 ML PEN SC SCH (09:44)
[2019-08-18] MEDS: FOLIC ACID 1 MG TAB PO SCH (09:48)
[2019-08-18] MEDS: THIAMINE HCL 100 MG TAB PO SCH (09:48)
[2019-08-18] MEDS ORDERED: LORazepam 0.5 MG/1 ML VIAL IV STA (12:03)
--- NOTE | 2019-08-18 12:15 | Hospitalist Progress Note ---
Date of Service August 18, 2019 Assessment & Plan (1) Alcohol abuse: Mr. Rigo Vazquez is a 34 y/o male with past medical hx of DM1, substance abuse, prior psych hospitalizations, anxiety, depression, who presented for EtOH/Drug crisis. EtOH negative on admission. Last drink ~9am on 08/17. Given banana bag x 1 in ER. * Continue 1:1 observation for recent suicide attempt * AWSS protocol. Ativan 1mg PO prn per protocol; at with for withdrawal although patient does provide some conflicting stories to different staff * Will need to monitor for at least another 48 hours for withdrawal * Continue thiamine, folic acid PO * Monitor on tele -- has been NSR in the 80s, 70-80s overnight * Did get 1x dose ativan 0.25mg today for agitation, but will avoid continued use or prescription at discharge -- will need to monitor for seizures * Continue to monitor (2) Drug abuse: * Reported benzo use daily for 2 weeks, anywhere from 1-12mg per day. Also with marijuana use. Approximately 6 beers per day or 4-5 mixed drinks for the past year. * Crystal meth for the past two weeks, 4 days ago injecting in attempted suicide to end his life * UA +amphetamines, ASA and APAP negative * Agreeable to inpatient psychiatric hospitalization and subsequent drug/alcohol rehab with plans for stepdown to [facility] (3) Suicidal ideations: * Suicidal No current suicidal ideations but will give 1-on-1 since suicide attempt a couple of days ago. * Psych consult -- appreciate input * Previous inpatient psychiatric stays. Hx depression, anxiety, PTSD -- has not been on any medications for months -- had previously trialed depakote, seroquel, celexa, vistaril, wellbutrin, ambien, lyrica, paxil and thorazine * Inpatient psych once medically stable -- anticipate in next 48 hours to monitor for withdrawal/DTs (4) Hyperglycemia: * Type 1 DM, says is on novolog 70/30 insulin and takes 25 units twice daily. Previously in 250s, no anion gap, ketones in urine, but B-hydroxy acid wasn't reported bc of hemolysis of sample * Will treat with levemir 20 units SQ BID -- patient agreed to take only 12 units this morning * Had multiple trays today with a total of 167 carbs by lunch with a BSG of 414 while in the midst of eating * BSG ACHS. ISS with CF 20, CR 1:7 * Pharmacy consult for glycemic control (5) Rib contusion: * -Negative chest CT for fracture * Trace blood but non-specific for kidney injury (6) Diabetes type 1, uncontrolled: * See above. Takes 70/30 25 units BID per patient * Most recent A1c 12.3 this admission * Diabetic education, pharmacy consult for glycemic management (7) DVT prophylaxis: * Lovenox SQ Dispo: likely to remain inpatient for next 48 hours to monitor for DTs, then discharge to inpatient psychiatric facility Supervising Physician Co-Signing Physician Notes PA Supervision Note: I did not personally see or examine the patient today, but I verified all aponte points of MARSHA Faria's assessment and plan with the following exceptions/additions: RN environmental services supervisor contacted me around 1830 today to say that the patient was very anxious and felt that he needed more Ativan. His vital signs are stable. I discussed with his primary nurse and she reported that it seemed that the patient was being manipulative and that he had no signs of withdrawal based on his AWSS scale. However, if the patient is indeed taking as much Xanax as an outpatient off the streets that he admits to along with all of the alcohol, he is at high risk for benzodiazepine withdrawal -We will order lorazepam 1 mg IV every 4 hours as needed anxiety and start Librium taper with 25 mg p.o. twice daily -Continue monitoring Subjective Patient evaluated in bed this morning. States he feels terrible. He states he has the shakes, a headache, and his skin feels like it is on fire. Associated chest pain, shortness of breath, lower abdominal pain. Had some frustrations with nursing staff this morning about multiple requests for food trays and that the food is not good. He stated to me during our conversation that the kitchen gave him a sandwich with one slice of meat on it. DM I since the age of 18. States he utilizes novolog 70/30 as an outpatient and takes 25 units twice a day without any recent adjustments. States that he also had been prescribed Xanax by Dr Quiroz but he did not have insurance recently and was forced to buy off the street. He states he had been utilizing anywhere from 1 to 12mg per day. Check on PDMP with one time prescription for 90 xanax 0.25mg tablets on 05/07/2019. He as also been utilizing marijuana. [facility] he has been using meth for the past two weeks, smoking and snorting as well as an attempted suicide via injection 4 days ago. States he has been drinking every day for the past year, consisting of either a 6pack or 4-5 mixed drinks, last drink yesterday morning around 9am. Of note, he states he had to go to [facility] when he was 18 for a dilation of his esophagus for narrowing, but does not have much other information. States he has difficulty swallowing pills. States he would like to undergo inpatient psych treatment, and that the [facility] choice. He states he DOES NOT want to undergo inpatient psychiatric treatment at this facility on third floor. 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 Review of Systems Review of Systems: All systems reviewed & are unremarkable except as noted in HPI & below Physical Exam Constitutional: well developed and well nourished; no acute distress Eyes: + anicteric sclerae and PERRL ENMT: external ear and nose normal, oropharynx normal Neck: trachea midline, no thyromegaly Respiratory: normal respiratory effort, lungs clear to auscultation Cardiovascular: RRR, no murmur, no edema left chest tender to palpation Gastrointestinal (Abdomen): normal bowel sounds, soft, nontender, no hepatosplenomegaly Musculoskeletal: no cyanosis or clubbing, extremities motor strength 5/5 Skin: no rashes, warm and dry Neurologic: PERRL, EOMI, accommodation nl, no face palsy, no dysarthria Psychiatric: Orientation: alert and oriented x 3 Affect: + irritable affect Mood: + anxious mood Lymphatic: no cervical or axillary lymphadenopathy Results & Data ([facility]) Vital Signs (Past 12 Hours) Vital Signs Temp Pulse Pulse Pulse Resp BP BP 08/18/19 11:36 36.7 C 86 16 137/86 08/18/19 09:44 36.7 C 73 16 145/98 H 08/18/19 08:00 74 08/18/19 04:52 36.5 C 75 20 128/82 Pulse Ox 08/18/19 11:36 94 08/18/19 09:44 98 08/18/19 08:00 08/18/19 04:52 97 Laboratory Results 08/18/19 08/18/19 08/18/19 Range/Units 11:34 07:00 06:14 WBC (4.8-10.8) K/uL RBC (4.7-6.1) M/uL Hgb (14.0-18.0) g/dL Hct (42-52) % MCV (80-100) fL MCH (25-34) pg MCHC (32-36) g/dL RDW Std Deviation (36.4-46.3) fL RDW Coeff of Yahir (11.5-14.5) % Plt Count (130-400) K/uL MPV (7.4-10.4) fL Immature Gran % (Auto) % Neut % (Auto) % Lymph % (Auto) % [place]atte % (Auto) % Eos % (Auto) % Baso % (Auto) % Immature Gran # (Auto) (0.00-0.02) K/uL Neut # (Auto) (1.4-6.5) K/uL Lymph # (Auto) (1.2-3.4) K/uL Platte # (Auto) (0.11-0.59) K/uL Eos # (Auto) (0-0.5) K/uL Baso # (Auto) (0-0.2) K/uL Absolute Nucleated RBC (0-0) K/uL Nucleated RBC % (auto) % Sodium (136-145) mmol/L Potassium (3.5-5.1) mmol/L Chloride (98-107) mmol/L Carbon Dioxide (21-32) mmol/L Anion Gap (3-11) BUN (7-18) mg/dl Creatinine (0.6-1.4) mg/dl Est Cr Clr Drug Dosing Est GFR ( Amer) Est GFR (Non-Af Amer) BUN/Creatinine Ratio (10-20) Glucose (70-99) mg/dl POC Glucose 414 H* 128 H (70-99) mg/dl Estimat Average Glucose 306 mg/dl Hemoglobin A1c 12.3 H (4.5-5.6) % Calcium (8.5-10.1) mg/dl Total Bilirubin (0.2-1) mg/dl AST (15-37) U/L ALT (12-78) U/L Alkaline Phosphatase (45-117) U/L Total Protein (6.4-8.2) gm/dl Albumin (3.4-5.0) gm/dl Globulin (2.5-4.0) gm/dl Albumin/Globulin Ratio (0.9-2) Beta-Hydroxybutyric Acd (0.2-2.81) mg/dl TSH (0.300-4.500) uIu/ml Urine Color Urine Appearance (Clear) Urine pH (4.5-7.5) Ur Specific [place] (1.000-1.030) Urine Protein (Negative) Urine Glucose (UA) (Negative) Urine Ketones (Negative) Urine Blood (Negative) Urine Nitrite (Negative) Urine Bilirubin (Negative) Urine Urobilinogen (Negative) Ur Leukocyte Esterase (Negative) Urine WBC (Auto) (0-5) /hpf Urine RBC (Auto) (0-4) /hpf U Hyaline Cast (Auto) (0-5) /lpf U Epithel Cells (Auto) (0-5) /lpf Urine Bacteria (Auto) (Negative) Salicylates (2.8-20) mg/dl Urine Opiates Screen (Neg) Ur Methadone, Qual (Neg) Acetaminophen (10-30) ug/ml Urine Barbiturates (Neg) Ur Phencyclidine (PCP) (Neg) U Amphetamines Confirm U Amphetamin/Meth Scrn (Neg) U Methamphetamin Confrm MDMA (Ecstasy) Screen (Neg) U Benzodiazepines Scrn (Neg) Ur Cocaine Metabolite (Neg) U Marijuana (THC) Screen (Neg) Drug Screen Comment Ethyl Alcohol mg/dL (0-3) mg/dl 08/18/19 08/18/19 08/17/19 Range/Units 06:14 06:14 22:59 WBC 4.22 L (4.8-10.8) K/uL RBC 4.68 L (4.7-6.1) M/uL Hgb 14.0 (14.0-18.0) g/dL Hct 40.7 L (42-52) % MCV 87.0 (80-100) fL MCH 29.9 (25-34) pg MCHC 34.4 (32-36) g/dL RDW Std Deviation 40.5 (36.4-46.3) fL RDW Coeff of Yahir 12.7 (11.5-14.5) % Plt Count 183 (130-400) K/uL MPV 11.3 H (7.4-10.4) fL Immature Gran % (Auto) 0.2 % Neut % (Auto) 36.3 % Lymph % (Auto) 48.1 % Platte % (Auto) 10.7 % Eos % (Auto) 4.5 % Baso % (Auto) 0.2 % Immature Gran # (Auto) 0.01 (0.00-0.02) K/uL Neut # (Auto) 1.53 (1.4-6.5) K/uL Lymph # (Auto) 2.03 (1.2-3.4) K/uL Platte # (Auto) 0.45 (0.11-0.59) K/uL Eos # (Auto) 0.19 (0-0.5) K/uL Baso # (Auto) 0.01 (0-0.2) K/uL Absolute Nucleated RBC (0-0) K/uL Nucleated RBC % (auto) % Sodium 141 D (136-145) mmol/L Potassium 3.5 D (3.5-5.1) mmol/L Chloride 106 (98-107) mmol/L Carbon Dioxide 32 (21-32) mmol/L Anion Gap 3.0 (3-11) BUN 18 (7-18) mg/dl Creatinine 0.72 D (0.6-1.4) mg/dl Est Cr Clr Drug Dosing 159.2 Est GFR ( Amer) 143.1 Est GFR (Non-Af Amer) 123.4 BUN/Creatinine Ratio 24.8 H (10-20) Glucose 117 H (70-99) mg/dl POC Glucose 343 H* (70-99) mg/dl Estimat Average Glucose mg/dl Hemoglobin A1c (4.5-5.6) % Calcium 8.3 L (8.5-10.1) mg/dl Total Bilirubin 0.2 (0.2-1) mg/dl AST 7 L (15-37) U/L ALT 13 (12-78) U/L Alkaline Phosphatase 59 (45-117) U/L Total Protein 5.7 L (6.4-8.2) gm/dl Albumin 2.6 L (3.4-5.0) gm/dl Globulin 3.1 (2.5-4.0) gm/dl Albumin/Globulin Ratio 0.8 L (0.9-2) Beta-Hydroxybutyric Acd (0.2-2.81) mg/dl TSH (0.300-4.500) uIu/ml Urine Color Urine Appearance (Clear) Urine pH (4.5-7.5) Ur Specific [place] (1.000-1.030) Urine Protein (Negative) Urine Glucose (UA) (Negative) Urine Ketones (Negative) Urine Blood (Negative) Urine Nitrite (Negative) Urine Bilirubin (Negative) Urine Urobilinogen (Negative) Ur Leukocyte Esterase (Negative) Urine WBC (Auto) (0-5) /hpf Urine RBC (Auto) (0-4) /hpf U Hyaline Cast (Auto) (0-5) /lpf U Epithel Cells (Auto) (0-5) /lpf Urine Bacteria (Auto) (Negative) Salicylates (2.8-20) mg/dl Urine Opiates Screen (Neg) Ur Methadone, Qual (Neg) Acetaminophen (10-30) ug/ml Urine Barbiturates (Neg) Ur Phencyclidine (PCP) (Neg) U Amphetamines Confirm U Amphetamin/Meth Scrn (Neg) U Methamphetamin Confrm MDMA (Ecstasy) Screen (Neg) U Benzodiazepines Scrn (Neg) Ur Cocaine Metabolite (Neg) U Marijuana (THC) Screen (Neg) Drug Screen Comment Ethyl Alcohol mg/dL (0-3) mg/dl 08/17/19 08/17/19 08/17/19 Range/Units 22:58 20:59 18:14 WBC (4.8-10.8) K/uL RBC (4.7-6.1) M/uL Hgb (14.0-18.0) g/dL Hct (42-52) % MCV (80-100) fL MCH (25-34) pg MCHC (32-36) g/dL RDW Std Deviation (36.4-46.3) fL RDW Coeff of Yahir (11.5-14.5) % Plt Count (130-400) K/uL MPV (7.4-10.4) fL Immature Gran % (Auto) % Neut % (Auto) % Lymph % (Auto) % [place]atte % (Auto) % Eos % (Auto) % Baso % (Auto) % Immature Gran # (Auto) (0.00-0.02) K/uL Neut # (Auto) (1.4-6.5) K/uL Lymph # (Auto) (1.2-3.4) K/uL Platte # (Auto) (0.11-0.59) K/uL Eos # (Auto) (0-0.5) K/uL Baso # (Auto) (0-0.2) K/uL Absolute Nucleated RBC (0-0) K/uL Nucleated RBC % (auto) % Sodium (136-145) mmol/L Potassium (3.5-5.1) mmol/L Chloride (98-107) mmol/L Carbon Dioxide (21-32) mmol/L Anion Gap (3-11) BUN (7-18) mg/dl Creatinine (0.6-1.4) mg/dl Est Cr Clr Drug Dosing Est GFR ( Amer) Est GFR (Non-Af Amer) BUN/Creatinine Ratio (10-20) Glucose (70-99) mg/dl POC Glucose 381 H* 280 H 252 H (70-99) mg/dl Estimat Average Glucose mg/dl Hemoglobin A1c (4.5-5.6) % Calcium (8.5-10.1) mg/dl Total Bilirubin (0.2-1) mg/dl AST (15-37) U/L ALT (12-78) U/L Alkaline Phosphatase (45-117) U/L Total Protein (6.4-8.2) gm/dl Albumin (3.4-5.0) gm/dl Globulin (2.5-4.0) gm/dl Albumin/Globulin Ratio (0.9-2) Beta-Hydroxybutyric Acd (0.2-2.81) mg/dl TSH (0.300-4.500) uIu/ml Urine Color Urine Appearance (Clear) Urine pH (4.5-7.5) Ur Specific [place] (1.000-1.030) Urine Protein (Negative) Urine Glucose (UA) (Negative) Urine Ketones (Negative) Urine Blood (Negative) Urine Nitrite (Negative) Urine Bilirubin (Negative) Urine Urobilinogen (Negative) Ur Leukocyte Esterase (Negative) Urine WBC (Auto) (0-5) /hpf Urine RBC (Auto) (0-4) /hpf U Hyaline Cast (Auto) (0-5) /lpf U Epithel Cells (Auto) (0-5) /lpf Urine Bacteria (Auto) (Negative) Salicylates (2.8-20) mg/dl Urine Opiates Screen (Neg) Ur Methadone, Qual (Neg) Acetaminophen (10-30) ug/ml Urine Barbiturates (Neg) Ur Phencyclidine (PCP) (Neg) U Amphetamines Confirm U Amphetamin/Meth Scrn (Neg) U Methamphetamin Confrm MDMA (Ecstasy) Screen (Neg) U Benzodiazepines Scrn (Neg) Ur Cocaine Metabolite (Neg) U Marijuana (THC) Screen (Neg) Drug Screen Comment Ethyl Alcohol mg/dL (0-3) mg/dl 08/17/19 08/17/19 08/17/19 Range/Units 17:55 17:55 17:55 WBC (4.8-10.8) K/uL RBC (4.7-6.1) M/uL Hgb (14.0-18.0) g/dL Hct (42-52) % MCV (80-100) fL MCH (25-34) pg MCHC (32-36) g/dL RDW Std Deviation (36.4-46.3) fL RDW Coeff of Yahir (11.5-14.5) % Plt Count (130-400) K/uL MPV (7.4-10.4) fL Immature Gran % (Auto) % Neut % (Auto) % Lymph % (Auto) % [place] % (Auto) % Eos % (Auto) % Baso % (Auto) % Immature Gran # (Auto) (0.00-0.02) K/uL Neut # (Auto) (1.4-6.5) K/uL Lymph # (Auto) (1.2-3.4) K/uL Platte # (Auto) (0.11-0.59) K/uL Eos # (Auto) (0-0.5) K/uL Baso # (Auto) (0-0.2) K/uL Absolute Nucleated RBC (0-0) K/uL Nucleated RBC % (auto) % Sodium (136-145) mmol/L Potassium (3.5-5.1) mmol/L Chloride (98-107) mmol/L Carbon Dioxide (21-32) mmol/L Anion Gap (3-11) BUN (7-18) mg/dl Creatinine (0.6-1.4) mg/dl Est Cr Clr Drug Dosing Est GFR ( Amer) Est GFR (Non-Af Amer) BUN/Creatinine Ratio (10-20) Glucose (70-99) mg/dl POC Glucose (70-99) mg/dl Estimat Average Glucose mg/dl Hemoglobin A1c (4.5-5.6) % Calcium (8.5-10.1) mg/dl Total Bilirubin (0.2-1) mg/dl AST (15-37) U/L ALT (12-78) U/L Alkaline Phosphatase (45-117) U/L Total Protein (6.4-8.2) gm/dl Albumin (3.4-5.0) gm/dl Globulin (2.5-4.0) gm/dl Albumin/Globulin Ratio (0.9-2) Beta-Hydroxybutyric Acd (0.2-2.81) mg/dl TSH (0.300-4.500) uIu/ml Urine Color Yellow Urine Appearance Clear (Clear) Urine pH 5.0 (4.5-7.5) Ur Specific Morven 1.042 H (1.000-1.030) Urine Protein Negative (Negative) Urine Glucose (UA) 3+ H (Negative) Urine Ketones Trace H (Negative) Urine Blood Trace H (Negative) Urine Nitrite Negative (Negative) Urine Bilirubin Negative (Negative) Urine Urobilinogen Negative (Negative) Ur Leukocyte Esterase Negative (Negative) Urine WBC (Auto) 0 (0-5) /hpf Urine RBC (Auto) 0-4 (0-4) /hpf U Hyaline Cast (Auto) 0 (0-5) /lpf U Epithel Cells (Auto) 5-10 H (0-5) /lpf Urine Bacteria (Auto) Negative (Negative) Salicylates (2.8-20) mg/dl Urine Opiates Screen Neg (Neg) Ur Methadone, Qual Neg (Neg) Acetaminophen (10-30) ug/ml Urine Barbiturates Neg (Neg) Ur Phencyclidine (PCP) Neg (Neg) U Amphetamines Confirm Pending U Amphetamin/Meth Scrn Pos H (Neg) U Methamphetamin Confrm Pending MDMA (Ecstasy) Screen Neg (Neg) U Benzodiazepines Scrn Neg (Neg) Ur Cocaine Metabolite Neg (Neg) U Marijuana (THC) Screen Neg (Neg) Drug Screen Comment Pending Ethyl Alcohol mg/dL (0-3) mg/dl 08/17/19 08/17/19 08/17/19 Range/Units 16:35 16:35 16:35 WBC (4.8-10.8) K/uL RBC (4.7-6.1) M/uL Hgb (14.0-18.0) g/dL Hct (42-52) % MCV (80-100) fL MCH (25-34) pg MCHC (32-36) g/dL RDW Std Deviation (36.4-46.3) fL RDW Coeff of Yahir (11.5-14.5) % Plt Count (130-400) K/uL MPV (7.4-10.4) fL Immature Gran % (Auto) % Neut % (Auto) % Lymph % (Auto) % [place] % (Auto) % Eos % (Auto) % Baso % (Auto) % Immature Gran # (Auto) (0.00-0.02) K/uL Neut # (Auto) (1.4-6.5) K/uL Lymph # (Auto) (1.2-3.4) K/uL Platte # (Auto) (0.11-0.59) K/uL Eos # (Auto) (0-0.5) K/uL Baso # (Auto) (0-0.2) K/uL Absolute Nucleated RBC (0-0) K/uL Nucleated RBC % (auto) % Sodium 134 L (136-145) mmol/L Potassium 4.4 (3.5-5.1) mmol/L Chloride 101 (98-107) mmol/L Carbon Dioxide 27 (21-32) mmol/L Anion Gap 6.0 (3-11) BUN 17 (7-18) mg/dl Creatinine 1.02 (0.6-1.4) mg/dl Est Cr Clr Drug Dosing Not Reportable Est GFR ( Amer) 112.2 Est GFR (Non-Af Amer) 96.8 BUN/Creatinine Ratio 16.6 (10-20) Glucose 436 H* (70-99) mg/dl POC Glucose (70-99) mg/dl Estimat Average Glucose mg/dl Hemoglobin A1c (4.5-5.6) % Calcium 8.4 L (8.5-10.1) mg/dl Total Bilirubin 0.4 (0.2-1) mg/dl AST 9 L (15-37) U/L ALT 18 (12-78) U/L Alkaline Phosphatase 73 (45-117) U/L Total Protein 6.5 (6.4-8.2) gm/dl Albumin 3.0 L (3.4-5.0) gm/dl Globulin 3.5 (2.5-4.0) gm/dl Albumin/Globulin Ratio 0.9 (0.9-2) Beta-Hydroxybutyric Acd (0.2-2.81) mg/dl TSH 0.347 (0.300-4.500) uIu/ml Urine Color Urine Appearance (Clear) Urine pH (4.5-7.5) Ur Specific [place] (1.000-1.030) Urine Protein (Negative) Urine Glucose (UA) (Negative) Urine Ketones (Negative) Urine Blood (Negative) Urine Nitrite (Negative) Urine Bilirubin (Negative) Urine Urobilinogen (Negative) Ur Leukocyte Esterase (Negative) Urine WBC (Auto) (0-5) /hpf Urine RBC (Auto) (0-4) /hpf U Hyaline Cast (Auto) (0-5) /lpf U Epithel Cells (Auto) (0-5) /lpf Urine Bacteria (Auto) (Negative) Salicylates < 1.7 L (2.8-20) mg/dl Urine Opiates Screen (Neg) Ur Methadone, Qual (Neg) Acetaminophen < 2 L (10-30) ug/ml Urine Barbiturates (Neg) Ur Phencyclidine (PCP) (Neg) U Amphetamines Confirm U Amphetamin/Meth Scrn (Neg) U Methamphetamin Confrm MDMA (Ecstasy) Screen (Neg) U Benzodiazepines Scrn (Neg) Ur Cocaine Metabolite (Neg) U Marijuana (THC) Screen (Neg) Drug Screen Comment Ethyl Alcohol mg/dL < 3.0 (0-3) mg/dl 08/17/19 Range/Units 16:35 WBC 3.94 L (4.8-10.8) K/uL RBC 4.91 (4.7-6.1) M/uL Hgb 14.7 (14.0-18.0) g/dL Hct 42.0 (42-52) % MCV 85.5 (80-100) fL MCH 29.9 (25-34) pg MCHC 35.0 (32-36) g/dL RDW Std Deviation 39.0 (36.4-46.3) fL RDW Coeff of Yahir 12.5 (11.5-14.5) % Plt Count 172 (130-400) K/uL MPV 11.5 H (7.4-10.4) fL Immature Gran % (Auto) 0.3 % Neut % (Auto) 60.6 % Lymph % (Auto) 27.2 % Platte % (Auto) 8.1 % Eos % (Auto) 3.3 % Baso % (Auto) 0.5 % Immature Gran # (Auto) 0.01 (0.00-0.02) K/uL Neut # (Auto) 2.39 (1.4-6.5) K/uL Lymph # (Auto) 1.07 L (1.2-3.4) K/uL Platte # (Auto) 0.32 (0.11-0.59) K/uL Eos # (Auto) 0.13 (0-0.5) K/uL Baso # (Auto) 0.02 (0-0.2) K/uL Absolute Nucleated RBC 0.03 H (0-0) K/uL Nucleated RBC % (auto) 0.8 % Sodium (136-145) mmol/L Potassium (3.5-5.1) mmol/L Chloride (98-107) mmol/L Carbon Dioxide (21-32) mmol/L Anion Gap (3-11) BUN (7-18) mg/dl Creatinine (0.6-1.4) mg/dl Est Cr Clr Drug Dosing Est GFR ( Amer) Est GFR (Non-Af Amer) BUN/Creatinine Ratio (10-20) Glucose (70-99) mg/dl POC Glucose (70-99) mg/dl Estimat Average Glucose mg/dl Hemoglobin A1c (4.5-5.6) % Calcium (8.5-10.1) mg/dl Total Bilirubin (0.2-1) mg/dl AST (15-37) U/L ALT (12-78) U/L Alkaline Phosphatase (45-117) U/L Total Protein (6.4-8.2) gm/dl Albumin (3.4-5.0) gm/dl Globulin (2.5-4.0) gm/dl Albumin/Globulin Ratio (0.9-2) Beta-Hydroxybutyric Acd (0.2-2.81) mg/dl TSH (0.300-4.500) uIu/ml Urine Color Urine Appearance (Clear) Urine pH (4.5-7.5) Ur Specific [place] (1.000-1.030) Urine Protein (Negative) Urine Glucose (UA) (Negative) Urine Ketones (Negative) Urine Blood (Negative) Urine Nitrite (Negative) Urine Bilirubin (Negative) Urine Urobilinogen (Negative) Ur Leukocyte Esterase (Negative) Urine WBC (Auto) (0-5) /hpf Urine RBC (Auto) (0-4) /hpf U Hyaline Cast (Auto) (0-5) /lpf U Epithel Cells (Auto) (0-5) /lpf Urine Bacteria (Auto) (Negative) Salicylates (2.8-20) mg/dl Urine Opiates Screen (Neg) Ur Methadone, Qual (Neg) Acetaminophen (10-30) ug/ml Urine Barbiturates (Neg) Ur Phencyclidine (PCP) (Neg) U Amphetamines Confirm U Amphetamin/Meth Scrn (Neg) U Methamphetamin Confrm MDMA (Ecstasy) Screen (Neg) U Benzodiazepines Scrn (Neg) Ur Cocaine Metabolite (Neg) U Marijuana (THC) Screen (Neg) Drug Screen Comment Ethyl Alcohol mg/dL (0-3) mg/dl PG Care Time/CCT Total # of Minutes Spent Total Time Spent with Patient: Total time spent is greater than 50% in coordination of care (as documented) at patient's floor/unit and/or counseling patient: Coding Level of Care Code 48629 Subseq Hosp Care Lvl 3 Diagnoses Alcohol abuse F10.10 Drug abuse F19.10 Suicidal ideations R45.851 Hyperglycemia R73.9 Rib contusion S20.219A Diabetes type 1, uncontrolled E10.65 DVT prophylaxis Z29.9
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
[2019-08-18] MEDS ORDERED: Nursing to Pharmacy Communication ONE (13:33)
[2019-08-18] MEDS ORDERED: PHARMACY GLYCEMIC MGMT CONSULT PRN (13:35)
[2019-08-18] MEDS ORDERED: POTASSIUM CHLORIDE 20 MEQ TABCR PO STA (15:17)
--- NOTE | 2019-08-18 15:20 | Pharmacy Report ---
Glycemic Control Consultation - Date of Service August 18, 2019 - Scope Scope: Glycemic Pharmacist consulted for glycemic control and to write orders per [facility] inpatient glycemic control protocol - Objective Weight: 76.43 kg Accuchecks BSG (last 24hrs): 08/17/19 08/17/19 08/17/19 16:35 18:14 20:59 Glucose 436 H* POC Glucose 252 H 280 H 08/17/19 08/17/19 08/18/19 22:58 22:59 06:14 Glucose 117 H POC Glucose 381 H* 343 H* 08/18/19 08/18/19 07:00 11:34 Glucose POC Glucose 128 H 414 H* Laboratory Data (last 24hrs): 08/17/19 08/18/19 16:35 06:14 Potassium 4.4 3.5 D Carbon Dioxide 27 32 Anion Gap 6.0 3.0 Creatinine 1.02 0.72 D Est Cr Clr Drug Dosing Not Reportable 159.2 Beta-Hydroxybutyric Acd HbA1c: Hemoglobin A1c 12.3 % (4.5-5.6) H 08/18/19 06:14 - Recent Pertinent Medications Outpatient Anti-diabetic Regimen: * Novolog mix 70/30 25 units SC BID * A1c = 12.3 % on 08/18/19 The patient is currently receiving: * Basal insulin: Lantus 20 units SC BID (admin 08/17 PM and 08/18 AM) * Correctional Insulin: Novolog Correction per scale ACHS Goal Range: Low mg/dL - High [] mg/dL Correction Factor: [] mg/dL/unit * Prandial insulin: Per carb ratio of 1 unit per [] grams CHO consumed Risk Factors for Insulin Resistance: * Diet: T1DM changed to T2DM despite patient having T1DM to limit severe CHO spike post-prandially - Assessment & Plan Assessment & Plan: ASSESSMENT: * 34 yo M with type 1 diabetes * Spoke with the patient - he was very tired therefore I was not able to determine outpatient adherence or confirm outpatient regimen. Patient did express a strong preference to use Novolog mix 70/30. I counseled that I would attempt to get him back on the NPH component for basal insulin tomorrow, but noted that a combination is not recommended while inpatient, and noted that he had mentioned to his nurse that his po intake was significantly different while here than as an outpatient * Will hold additional basal insulin for now as patient received ~0.25 units/kg yesterday evening and this AM, with activity to last ~24 hours. Also - would prefer to use NPH starting tomorrow AM to help accommodate patient request PLAN FOR INPATIENT GLYCEMIC CONTROL: * Basal insulin * Hold Lantus for now. Anticipate starting NPH BIDM starting tomorow * Bolus insulin * NovoLog per scale ACHS or Q6hrs while NPO * Goal Range: Low 120 mg/dL - High 150 mg/dL * Correction Factor: 35 mg/dL/unit * Nutritional / Prandial insulin per carb ratio of 1 unit per 12 grams CHO consumed * Please note that the plan above was derived based on current level of insulin resistance and hospital stress. These recommendations are appropriate for inpatient admission only. Plan of care upon discharge will need to be reassessed to avoid potential outpatient hypo/hyperglycemia. Thank you.
[2019-08-18] MEDS: chlordiazePOXIDE HCl 25 MG CAP PO SCH (20:36)
[2019-08-18] MEDS: ALPRAZolam 0.5 MG TABLET PO PRN (20:37)
[2019-08-18] MEDS ORDERED: BACLOFEN 10 MG TAB PO SCH (21:00)
[2019-08-18] MEDS ORDERED: METAXALONE 800 MG TABLET PO SCH (21:00)
[2019-08-18] MEDS: LORazepam 1 MG/2 ML VIAL IV PRN (23:35)
[2019-08-19] MEDS: NICOTINE 14 MG/24 HR PATCH TD SCH ×2 (00:23→09:03)
[2019-08-19] MEDS: ALPRAZolam 0.5 MG TABLET PO PRN ×2 (00:59→07:52)
[2019-08-19] MEDS: chlordiazePOXIDE HCl 25 MG CAP PO SCH ×3 (07:52→21:39)
[2019-08-19] MEDS: THIAMINE HCL 100 MG TAB PO SCH (07:52)
[2019-08-19] MEDS: FOLIC ACID 1 MG TAB PO SCH (07:53)
[2019-08-19] MEDS ORDERED: INSULIN ASPART 100 UNITS/ML 3 ML PEN SC PRN ×2 (07:54→16:15)
[2019-08-19] MEDS ORDERED: INSULIN HUMAN NPH SC SCH ×2 (08:00→16:15)
[2019-08-19] MEDS ORDERED: INSULIN HUMAN REGULAR PER UNIT 5 UNITS in SYRINGE 4.95 ML IV ONE (08:00)
[2019-08-19 08:23] LABS: Albumin Globulin Ratio 0.9 (0.9-2); Albumin Level 2.8 gm/dl (3.4-5.0); Bilirubin,Total 0.3 mg/dl (0.2-1); Calcium 8.7 mg/dl (8.5-10.1); Est GFR (African American) 138.4; Est GFR (Non-African American) 119.4; Globulin 3.3 gm/dl (2.5-4.0); Magnesium 1.9 mg/dl (1.8-2.4); Potassium 4.3 mmol/L (3.5-5.1); Total Protein 6.1 gm/dl (6.4-8.2)
[2019-08-19 08:48] LABS: BUN Creatinine Ratio 19.2 (10-20)
[2019-08-19] MEDS ORDERED: FLUOXETINE HCL 20 MG CAP PO SCH (09:00)
[2019-08-19 09:06] LABS: Beta-Hydroxybutyrate 2.63 mg/dl (0.2-2.81)
[2019-08-19] MEDS: INSULIN ASPART 100 UNITS/ML 3 ML PEN SC SCH ×4 (09:06→21:44)
[2019-08-19] MEDS ORDERED: LORazepam 0.5 MG/1 ML VIAL IV STA (14:45)
--- NOTE | 2019-08-19 15:24 | Pharmacy Report ---
Pharmacy Glycemic Short Note 2 - Date of Service August 19, 2019 - Glycemic Short BSG Results (Last 24 hours): 08/18/19 08/18/19 08/19/19 16:16 20:34 07:03 Glucose 395 H* POC Glucose 301 H* 273 H 08/19/19 08/19/19 08/19/19 07:30 07:31 07:33 Glucose POC Glucose 452 H* 355 H* 408 H* 08/19/19 08/19/19 11:40 11:40 Glucose POC Glucose 321 H* 356 H* Outpatient Anti-diabetic Regimen: * Novolog mix 70/30 25 units SC BID * A1c = 12.3 % on 08/18/19 Risk Factors for Insulin Resistance: * Diet: T1DM changed to T2DM despite patient having T1DM to limit severe CHO spike post-prandially ASSESSMENT: * 34 yo M with type 1 diabetes * Transitioned basal insulin to NPH today per patient preference. * Significant BSG elevation to 408 mg/dL this AM, but patient snacking/consuming significant CHO overnight which was not covered with Novolog. I added in an order to cover non-mealtime CHO prn * Patient asking for a second meal tray at lunch per RN - OK'd but encouraged covering CHO with Novolog as ordered * Doubt will be able to obtain a true fasting BSG or a post-prandial BSG where it has been several hours since Novolog and since last po intake. Therefore BSG's may be persistently elevated, but these must be interpreted in the context of recent po consumption. PLAN FOR INPATIENT GLYCEMIC CONTROL: * Basal insulin * NPH 10-20 units SC BIDM based on BSG * Bolus insulin * NovoLog per scale ACHS or Q6hrs while NPO * Goal Range: Low 120 mg/dL - High 150 mg/dL * Correction Factor: 40 mg/dL/unit * Nutritional / Prandial insulin per carb ratio of 1 unit per 10 grams CHO consumed * Additional Novolog q2h prn snacking with looser CHO ratio of 1:15
[2019-08-19] MEDS: LORazepam 1 MG/2 ML VIAL IV PRN ×2 (15:31→21:47)
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
[2019-08-19] MEDS: SUCRALFATE 1 GM/10 ML UDC PO SCH ×2 (16:56→21:41)
[2019-08-19] MEDS: FAMOTIDINE 20 MG in SYRINGE 3 ML IV SCH ×2 (16:56→21:53)
[2019-08-19] MEDS: INSULIN HUMAN NPH SC SCH (17:00)
[2019-08-19] MEDS: GABAPENTIN 300 MG CAP PO SCH ×2 (17:07→21:41)
[2019-08-19 20:13] LABS: Amphetamine Urine, Confirm 542 ng/mL (<250); Methamphetamine, Ur Confirm 1160 ng/mL (<250)
[2019-08-19] MEDS ORDERED: PRAZOSIN HCL 1 MG CAP PO SCH (21:00)
[2019-08-19] MEDS ORDERED: GABAPENTIN 100 MG CAP PO SCH (21:00)
[2019-08-20] MEDS: ENOXAPARIN INJ 40 MG/0.4 ML SYR SQ SCH (01:35)
[2019-08-20 06:16] LABS: Hematocrit (blood only) 40.6 % (42-52); Hemoglobin 13.9 g/dL (14.0-18.0); Mean Corpuscular Hemoglobin 29.8 pg (25-34); Mean Corpuscular Hgb Conc 34.2 g/dL (32-36); Mean Corpuscular Volume 86.9 fL (80-100); Mean Platelet Volume 11.4 fL (7.4-10.4); Platelet Count 168 K/uL (130-400); RDW Coefficient of Variation 12.6 % (11.5-14.5); RDW Standard Deviation 40.3 fL (36.4-46.3); Red Blood Count 4.67 M/uL (4.7-6.1); White Blood Count 5.41 K/uL (4.8-10.8)
[2019-08-20 06:47] LABS: BUN Creatinine Ratio 22.2 (10-20); Calcium 8.6 mg/dl (8.5-10.1); Creatinine Clr Calc Pharmacy 149.2 ml/min; Est GFR (African American) 138.4; Est GFR (Non-African American) 119.4; Magnesium 1.9 mg/dl (1.8-2.4)
[2019-08-20] MEDS: INSULIN HUMAN NPH SC SCH ×2 (08:42→17:12)
[2019-08-20] MEDS: FOLIC ACID 1 MG TAB PO SCH (08:43)
[2019-08-20] MEDS: SUCRALFATE 1 GM/10 ML UDC PO SCH ×3 (08:43→17:46)
[2019-08-20] MEDS: THIAMINE HCL 100 MG TAB PO SCH (08:43)
[2019-08-20] MEDS: NICOTINE 14 MG/24 HR PATCH TD SCH (08:44)
[2019-08-20] MEDS: GABAPENTIN 300 MG CAP PO SCH ×2 (08:46→14:36)
[2019-08-20] MEDS: chlordiazePOXIDE HCl 25 MG CAP PO SCH ×2 (08:48→14:37)
[2019-08-20] MEDS: INSULIN ASPART 100 UNITS/ML 3 ML PEN SC SCH ×3 (08:53→17:13)
[2019-08-20] MEDS: FAMOTIDINE 20 MG in SYRINGE 3 ML IV SCH (09:12)
--- NOTE | 2019-08-20 11:36 | Hospitalist Progress Note ---
Date of Service August 20, 2019 Assessment & Plan (1) Alcohol abuse: Mr. Rigo Vazquez is a 34 y/o male with past medical hx of DM1, substance abuse, prior psych hospitalizations, anxiety, depression, who presented for EtOH/Drug crisis. EtOH negative on admission. Last drink ~9am on 08/17. Given banana bag x 1 in ER. * Continue 1:1 observation for recent suicide attempt. * AWSS protocol. Ativan 1mg PO prn per protocol-- currently score of 0. * Continue thiamine, folic acid PO * VSS -- 125/86, 77bpm, afebrile. On color television console monitor ==> has been NSR in the 70s, 70-90s overnight * Xanax, baclofen overnight on 08/19 -- Discontinued this morning * Ativan 1mg q4h prn * Patient may be appropriate for dual diagnosis inpatient treatment -- states he does not want to be in the [facility], but does have medical assistance. * Vistaril q6 prn added * Started librium evening of 08/18 BID --> increased to 25mg PO TID on 08/19 --> to be tapered * Continue gabapentin 300mg TID * Expresses suicidal ideation -- in the event patient wishes to leave, psych to fill out 302 * avoid continued use or prescription of benzos at discharge * Continue Prazosin 4mg HS for PTSD * started Pepcid 20mg IV BID and carafate slurry qid for c/o indigestion -- continue PO at discharge * Continue to monitor (2) Drug abuse: * Reported benzo use daily for 2 weeks, anywhere from 1-12mg per day. Also with reported marijuana use. Approximately 6 beers per day or 4-5 mixed drinks for the past year. * Crystal meth for the past two weeks, 5 days ago injecting in attempted suicide to end his life * UA +amphetamines, ASA and APAP negative * Agreeable to inpatient psychiatric hospitalization and subsequent drug/alcohol rehab with plans for stepdown to care home house (3) Suicidal ideations: * States he does not want to live like this any long. * 1:1 until discharged to inpatient psych * Psych consult -- appreciate input * Previous inpatient psychiatric stays. Hx depression, anxiety, PTSD -- has not been on any medications for months -- had previously trialed depakote, seroquel, celexa, vistaril, wellbutrin, ambien, lyrica, paxil and thorazine * Medically stable for inpatient psych when bed available (4) Hyperglycemia: * Type 1 DM, says is on novolog 70/30 insulin and takes 25 units twice daily. Previously in 250s, no anion gap, ketones in urine, but B-hydroxy acid wasn't reported bc of hemolysis of sample * Levemir 20 units SQ BID -- patient agreed to take only 12 units morning of 08/18 * Had multiple trays on 08/18 with a total of 167 carbs by lunch with a BSG of 414 while in the midst of eating * Pharmacy consult for glycemic control * BSG ACHS. ISS. Lowered CF, CR 1:10 * Sugars had been running in the 273-452. Most recent check 126 * Added NPH 25 units BID (5) Rib contusion: * Negative chest CT for fracture * Trace blood but non-specific for kidney injury (6) Diabetes type 1, uncontrolled: * See above. Takes 70/30 25 units BID per patient as outpatient * Most recent A1c 12.3 this admission * Diabetic education, pharmacy consult for glycemic management * Increased NPH to 25 units BID, lowered goal range, CR 1:10 * See above in hyperglycemia * To be discharged with 25-27units NPH BID with sliding scale novolog for coverage, as patient does not carb count. 10 units novolog with meals (7) DVT prophylaxis: * Lovenox SQ Dispo: medically clear for inpatient psych when bed available Subjective Patient evaluated this morning. States he "feels like shit", but appears much calmer this morning. Some confusion/frustrations with staff regarding not being able to receive additional food, but discussed covering for snack. Patient demonstrates understanding and states appreciation for clearing that up. Discussed that we will utilize NPH twice daily and use a sliding scale so that he does not have to count carbs. Agreeable to that plan. Would like to go to a dual diagnosis center. Discussed guanako Dumont. Would also like to wear his sweatpants, and states the string can be cut out. States his stomach hurts, occasional chest pain, shortness of breath. States he needs something to calm his nerves, and repeats that he has been using xanax to calm him down from meth use. Discussed that I would look into what he has already received today to make sure he wouldn't have any reaction prior to receiving anything. Stated "thank you for everything" at the end of our discussion. Review of Systems Review of Systems: All systems reviewed & are unremarkable except as noted in HPI & below Physical Exam Physical Exam: Constitutional well developed and well nourished; no acute distress Eyes + anicteric sclerae and PERRL ENMT external ear and nose normal, oropharynx normal Neck trachea midline, no thyromegaly Respiratory normal respiratory effort, lungs clear to auscultation Cardiovascular RRR, no murmur, no edema Gastrointestinal (Abdomen) normal bowel sounds, soft, nontender, no hepatosplenomegaly Musculoskeletal no cyanosis or clubbing, extremities motor strength 5/5 Skin no rashes, warm and dry Neurologic PERRL, EOMI, accommodation nl, no face palsy, no dysarthria no tremor Psychiatric Orientation: alert and oriented x 3 Results & Data ([facility]) Vital Signs (Past 12 Hours) Vital Signs Temp Pulse Pulse Resp BP Pulse Ox 08/20/19 09:00 77 08/20/19 07:11 36.5 C 80 20 125/77 96 08/20/19 04:43 36.6 C 78 18 127/80 95 Laboratory Results 08/20/19 08/20/19 08/20/19 Range/Units 07:06 05:59 05:59 WBC 5.41 (4.8-10.8) K/uL RBC 4.67 L (4.7-6.1) M/uL Hgb 13.9 L (14.0-18.0) g/dL Hct 40.6 L (42-52) % MCV 86.9 (80-100) fL MCH 29.8 (25-34) pg MCHC 34.2 (32-36) g/dL RDW Std Deviation 40.3 (36.4-46.3) fL RDW Coeff of Yahir 12.6 (11.5-14.5) % Plt Count 168 (130-400) K/uL MPV 11.4 H (7.4-10.4) fL Sodium 138 (136-145) mmol/L Potassium 4.0 (3.5-5.1) mmol/L Chloride 103 (98-107) mmol/L Carbon Dioxide 33 H (21-32) mmol/L Anion Gap 2.0 L (3-11) BUN 17 (7-18) mg/dl Creatinine 0.78 (0.6-1.4) mg/dl Est Cr Clr Drug Dosing 149.2 ml/min Est GFR ( Amer) 138.4 Est GFR (Non-Af Amer) 119.4 BUN/Creatinine Ratio 22.2 H (10-20) Glucose 225 H (70-99) mg/dl POC Glucose 241 H (70-99) mg/dl Calcium 8.6 (8.5-10.1) mg/dl Magnesium 1.9 (1.8-2.4) mg/dl U Amphetamines Confirm (<250) ng/mL U Methamphetamin Confrm (<250) ng/mL Drug Screen Comment 08/19/19 08/19/19 08/19/19 Range/Units 20:32 16:13 11:40 WBC (4.8-10.8) K/uL RBC (4.7-6.1) M/uL Hgb (14.0-18.0) g/dL Hct (42-52) % MCV (80-100) fL MCH (25-34) pg MCHC (32-36) g/dL RDW Std Deviation (36.4-46.3) fL RDW Coeff of Yahir (11.5-14.5) % Plt Count (130-400) K/uL MPV (7.4-10.4) fL Sodium (136-145) mmol/L Potassium (3.5-5.1) mmol/L Chloride (98-107) mmol/L Carbon Dioxide (21-32) mmol/L Anion Gap (3-11) BUN (7-18) mg/dl Creatinine (0.6-1.4) mg/dl Est Cr Clr Drug Dosing ml/min Est GFR ( Amer) Est GFR (Non-Af Amer) BUN/Creatinine Ratio (10-20) Glucose (70-99) mg/dl POC Glucose 100 H 126 H 356 H* (70-99) mg/dl Calcium (8.5-10.1) mg/dl Magnesium (1.8-2.4) mg/dl U Amphetamines Confirm (<250) ng/mL U Methamphetamin Confrm (<250) ng/mL Drug Screen Comment 08/19/19 08/17/19 Range/Units 11:40 17:55 WBC (4.8-10.8) K/uL RBC (4.7-6.1) M/uL Hgb (14.0-18.0) g/dL Hct (42-52) % MCV (80-100) fL MCH (25-34) pg MCHC (32-36) g/dL RDW Std Deviation (36.4-46.3) fL RDW Coeff of Yahir (11.5-14.5) % Plt Count (130-400) K/uL MPV (7.4-10.4) fL Sodium (136-145) mmol/L Potassium (3.5-5.1) mmol/L Chloride (98-107) mmol/L Carbon Dioxide (21-32) mmol/L Anion Gap (3-11) BUN (7-18) mg/dl Creatinine (0.6-1.4) mg/dl Est Cr Clr Drug Dosing ml/min Est GFR ( Amer) Est GFR (Non-Af Amer) BUN/Creatinine Ratio (10-20) Glucose (70-99) mg/dl POC Glucose 321 H* (70-99) mg/dl Calcium (8.5-10.1) mg/dl Magnesium (1.8-2.4) mg/dl U Amphetamines Confirm 542 H (<250) ng/mL U Methamphetamin Confrm 1160 H (<250) ng/mL Drug Screen Comment SEE NOTE PG Care Time/CCT Total # of Minutes Spent Total Time Spent with Patient: Total time spent is greater than 50% in coordination of care (as documented) at patient's floor/unit and/or counseling patient: Coding Diagnoses Alcohol abuse F10.10 Drug abuse F19.10 Suicidal ideations R45.851 Hyperglycemia R73.9 Rib contusion S20.219A Diabetes type 1, uncontrolled E10.65 DVT prophylaxis Z29.9
[2019-08-20] MEDS ORDERED: LORazepam 0.5 MG TAB SL STA (12:04)
--- NOTE | 2019-08-20 12:15 | Pharmacy Report ---
Pharmacy Glycemic Short Note 2 - Date of Service August 20, 2019 - Glycemic Short BSG Results (Last 24 hours): 08/19/19 08/19/19 08/20/19 16:13 20:32 05:59 Glucose 225 H POC Glucose 126 H 100 H 08/20/19 08/20/19 07:06 11:27 Glucose POC Glucose 241 H 268 H Outpatient Anti-diabetic Regimen: * Novolog mix 70/30 25 units SC BID (non-compliant) * A1c = 12.3 % on 08/18/19 Risk Factors for Insulin Resistance: * Diet: T1DM changed to T2DM despite patient having T1DM to limit severe CHO spike post-prandially ASSESSMENT: 08/20/19 * Patient to be discharged today to another facility. Providers here requesting recommendations for a sliding scale on Humalog and basal NPH. Patient agreeable to using these at this time. * See recommendations below. * Some changes made last evening to inpatient regimen after discussion between Dr Leyva and pharmacy, see inpatient plan below. 08/19/19 * 34 yo M with type 1 diabetes * Transitioned basal insulin to NPH today per patient preference. * Significant BSG elevation to 408 mg/dL this AM, but patient snacking/consuming significant CHO overnight which was not covered with Novolog. I added in an order to cover non-mealtime CHO prn * Patient asking for a second meal tray at lunch per RN - OK'd but encouraged covering CHO with Novolog as ordered * Doubt will be able to obtain a true fasting BSG or a post-prandial BSG where it has been several hours since Novolog and since last po intake. Therefore BSG's may be persistently elevated, but these must be interpreted in the context of recent po consumption. PLAN FOR INPATIENT GLYCEMIC CONTROL: * Basal insulin * NPH 25 units SQ BID with meals * Bolus insulin * NovoLog per scale ACHS or Q6hrs while NPO * Goal Range: Low 120 mg/dL - High 150 mg/dL * Correction Factor: 35 mg/dL/unit * Nutritional / Prandial insulin per carb ratio of 1 unit per 10 grams CHO consumed DISCHARGE RECOMMENDATIONS: * NPH 27 units SQ BID with meals * Humalog - 10 units with meals - plus the following additional insulin for blood sugar's over 150mg/dl * BSG 151-180mg/dl - 1 unit * BSG 181-210mg/dl - 2 units * BSG 211-240mg/dl - 3 units * BSG 241-270mg/dl - 4 units * BSG 271-300mg/dl - 5 units * BSG 301-330mg/dl - 6 units * BSG 331-360mg/dl - 7 units * BSG 361-390mg/dl - units
--- NOTE | 2019-08-20 13:50 | Psychiatric Progress Note ---
Date of Service August 20, 2019 Impression / Recommendations Impression 34-year-old male who has been living with his cousin in [place], has a history of polysubstance abuse, as well as depression and anxiety per his report, past admission to the [facility], and recent suicide attempt by injecting methamphetamine a few days ago, who presented to our ER on referral from the [facility] when he went there requesting admission and was told they had no beds. He was admitted to the hospitalist service due to concerns for withdrawal, as he reported drinking beer and taking Xanax daily. per initial consult Continues to meet criteria for inpatient mental health admission with hopefully step down to rehab, facility transfer likely today pending bed search so will hold addressing medication options as still tapering as above. He is opposed to continuing Neurontin. Interval History Chief Complaint "yeah something has got to stop this PTSD, if you won't do anything I'll stop it myself", referring to self harm Review of Systems Notes c/o poor sleep, restlessness, PTSD, denies physical complaints other than related to nicotine withdrawal. Subjective Subjective Patient was seen & assessed and interval progress reviewed with nursing. Seen as follow up to initial consult as nearing medical clearance. Patient remains irritable, has required additional prn benzos sporadically, currently on neurontin and librium tapers. He is c/o nicotine withdrawal despite patch, declines gum. He is willing for psychiatric admission as "why I came here in the first place" but requesting a smoking facility. Physical Exam Psychiatric Orientation: alert, oriented x 3 and cooperative Eye Contact: good eye contact Motor Behavior: no abnormal motor movements Speech: normal rate/rhythm/volume of speech Affect: + depressed affect, + anxious affect and + irritable affect Mood: + depressed mood and + anxious mood Thought Process: goal directed thought process Thought Content: reality based without delusions Suicidal Thoughts: + reports suicidal thoughts Homicidal Thoughts: denies homicidal thoughts Hallucinations: no auditory hallucinations and no visual hallucinations Cognition: recent memory grossly intact (Except for events after his overdose/lost consciousness) Insight: + limited insight Judgement: + limited judgement Vital Signs (Past 24 Hours) Last Vital Signs Temp 36.7 C 08/20/19 11:52 Pulse 97 H 08/20/19 11:52 Resp 18 08/20/19 11:52 BP 131/75 08/20/19 11:52 Pulse Ox 97 08/20/19 11:52 Results & Data Laboratory Results Laboratory Results - last 24 hr 08/17/19 08/19/19 08/19/19 17:55 16:13 20:32 WBC RBC Hgb Hct MCV MCH MCHC RDW Std Deviation RDW Coeff of Yahir Plt Count MPV Sodium Potassium Chloride Carbon Dioxide Anion Gap BUN Creatinine Est Cr Clr Drug Dosing Est GFR ( Amer) Est GFR (Non-Af Amer) BUN/Creatinine Ratio Glucose POC Glucose 126 H 100 H Calcium Magnesium U Amphetamines Confirm 542 H U Methamphetamin Confrm 1160 H Drug Screen Comment SEE NOTE 08/20/19 08/20/19 08/20/19 05:59 05:59 07:06 WBC 5.41 RBC 4.67 L Hgb 13.9 L Hct 40.6 L MCV 86.9 MCH 29.8 MCHC 34.2 RDW Std Deviation 40.3 RDW Coeff of Yahir 12.6 Plt Count 168 MPV 11.4 H Sodium 138 Potassium 4.0 Chloride 103 Carbon Dioxide 33 H Anion Gap 2.0 L BUN 17 Creatinine 0.78 Est Cr Clr Drug Dosing 149.2 Est GFR ( Amer) 138.4 Est GFR (Non-Af Amer) 119.4 BUN/Creatinine Ratio 22.2 H Glucose 225 H POC Glucose 241 H Calcium 8.6 Magnesium 1.9 U Amphetamines Confirm U Methamphetamin Confrm Drug Screen Comment 08/20/19 11:27 WBC RBC Hgb Hct MCV MCH MCHC RDW Std Deviation RDW Coeff of Yahir Plt Count MPV Sodium Potassium Chloride Carbon Dioxide Anion Gap BUN Creatinine Est Cr Clr Drug Dosing Est GFR ( Amer) Est GFR (Non-Af Amer) BUN/Creatinine Ratio Glucose POC Glucose 268 H Calcium Magnesium U Amphetamines Confirm U Methamphetamin Confrm Drug Screen Comment Current Inpatient Medications Current Inpatient Medications: Current Inpatient Medications Acetaminophen (Tylenol) 650 mg PO Q4H PRN PRN Reason: Pain or Fever Stop: 09/16/19 22:34 Al Hydrox/Mg Hydrox/Simethicone (Maalox) 15 ml PO Q4H PRN PRN Reason: Dyspepsia Stop: 09/16/19 22:34 Chlordiazepoxide HCl (Librium) 25 mg PO TID PEDRO Stop: 09/18/19 14:59 Last Admin: 08/20/19 08:48 Dose: 25 mg Documented by: Dextrose (Dextrose 50%) 25 - 50 ml IV UD PRN; Protocol PRN Reason: Hypoglycemia Protocol Stop: 09/16/19 22:34 Enoxaparin Sodium (Lovenox) 40 mg SQ Q24H PEDRO Stop: 09/16/19 22:59 Last Admin: 08/20/19 01:35 Dose: Not Given Documented by: Folic Acid (Folvite) 1 mg PO QAM PEDRO Stop: 09/17/19 08:59 Last Admin: 08/20/19 08:43 Dose: 1 mg Documented by: Gabapentin (Neurontin) 300 mg PO TID PEDRO Stop: 09/18/19 16:14 Last Admin: 08/20/19 08:46 Dose: 300 mg Documented by: Glucagon (Glucagen) 1 mg SQ UD PRN; Protocol PRN Reason: Hypoglycemia Protocol Stop: 09/16/19 22:34 Glucose (Dex4 Glucose) 4 - 8 tabs PO UD PRN; Protocol PRN Reason: Hypoglycemia Protocol Stop: 09/16/19 22:34 Glucose (Glucose 40%) 15 - 30 gm PO UD PRN; Protocol PRN Reason: Hypoglycemia Protocol Stop: 09/16/19 22:34 Hydroxyzine HCl (Vistaril) 25 mg PO Q6 PRN PRN Reason: Anxiety/Agitation Stop: 09/18/19 14:59 Lorazepam (Ativan) 1 mg in 2 mls @ 2 mls/min IV Q4H PRN PRN Reason: Anxiety Stop: 09/17/19 18:30 Last Admin: 08/19/19 21:47 Dose: 2 mls/min Documented by: Famotidine 20 mg/ Syringe 5 mls @ 2.5 mls/min IV BID [facility] Stop: 09/18/19 16:14 Last Admin: 08/20/19 09:12 Dose: 2.5 mls/min Documented by: Insulin Aspart (Novolog Flexpen) 0 units SC ACHS [facility] Stop: 09/16/19 21:00 Last Admin: 08/20/19 11:59 Dose: 16 units Documented by: Insulin Aspart (Novolog Flexpen) 0 units SC Q2H PRN; Protocol PRN Reason: SNACKING Stop: 09/18/19 07:53 Last Admin: 08/20/19 10:23 Dose: 2 units Documented by: Insulin Human NPH (Novolin N Nph) 25 units SC BIDM [facility] Stop: 09/18/19 16:59 Last Admin: 08/20/19 08:42 Dose: 25 units Documented by: Magnesium Hydroxide (Milk Of Magnesia) 30 ml PO Q12H PRN PRN Reason: Constipation Stop: 09/16/19 22:34 Miscellaneous (Carbohydrates For Hypoglycemia) 15 - 30 gm PO UD PRN PRN Reason: Hypoglycemia Protocol Stop: 09/16/19 22:34 Miscellaneous (Remove Nicoderm Patch) 1 ea N/A DAILY@0859 [facility] Stop: 09/18/19 08:58 Last Admin: 08/20/19 08:45 Dose: 1 ea Documented by: Miscellaneous Information (Consult Glycemic Management Pharmacy) 1 ea N/A UD PRN PRN Reason: Consult Stop: 09/17/19 13:34 Nicotine ([facility]oderm Cq) [facility] Stop: 09/18/19 08:59 Last Admin: 08/20/19 08:44 Dose: 14 mg Documented by: Ondansetron HCl (Zofran) 4 mg IV Q6H PRN PRN Reason: Nausea Stop: 09/16/19 22:34 Polyethylene Glycol (Miralax Powder Packet) 17 gm PO DAILY PRN PRN Reason: Constipation Stop: 09/16/19 22:34 Prazosin HCl (Prazosin Hcl) 4 mg PO HS [facility] Stop: 09/18/19 20:59 Last Admin: 08/19/19 21:39 Dose: 4 mg Documented by: Sucralfate (Carafate) 1 gm PO ACHS [facility] Stop: 09/18/19 16:29 Last Admin: 08/20/19 11:56 Dose: 1 gm Documented by: Thiamine HCl (Vitamin B-1) 100 mg PO QAM [facility] Stop: 09/17/19 08:59 Last Admin: 08/20/19 08:43 Dose: 100 mg Documented by: Trazodone HCl (Desyrel) 50 mg PO HS PRN PRN Reason: Insomnia Stop: 09/16/19 22:34
--- NOTE | 2019-08-20 16:10 | Discharge Summary ---
Date of Service August 20, 2019 Admission HPI Per Admitting Provider Mr. Rigo Vazquez is a 34 y/o male with past medical hx of DM1, substance abuse, prior psych hospitalizations, anxiety, depression, who presented for EtOH/Drug crisis. He notes that has a history of substance abuse and was perviously clean for the past 6 months before relapsing. He notes that he started to use Crystal Meth about 2 weeks ago with snorting and smoking. He states that he attempted suicide about 2 days ago by injecting Crystal Meth IV into his Left AC and passed out and hit his left ribs on bathroom sink. He notes that he doesn't share needles, no Hx of HIV, Hep B or C. He notes drinking alcohol daily for many years usually 6-12 beers per day and last drink was this AM when he had a Alba mixed drink. He denies prior alcohol withdrawal. He notes not taking his insulin for his Diabetes type 1 as well. He notes that he would like to go to rehab. He notes being on psych meds prior but ran out of his meds then started to medicate himself via street drugs. He notes he has been using Benzos "off the street" to help with his Crystal Meth come downs. Rigo reported to staff taking 6-13 Xanax per day. He notes not taking any benzos or meth for the past 2-3 days. He states he has had some hallucinations visual of shadows, none currently, no auditory. He doesn't have any current suicidal ideations; he wants help with his current anxiety and help with sobriety. He would to go to rehab. ED requested admission for medical clearance prior to discharge to rehab. Currently, he only has pain to his left ribs from fall; his Chest CT was negative for fractures. No treatments given in ED except for food. He did have a glucose in lab in 400s, but recent POC was 250. Urine Drug positive for Amph, negative for EtOH and benzos. Admission Exam Per Admitting Provider Constitutional: WD/WN, vitals as above comfortable; no acute distress Eyes: PERRL, conjunctivae normal, anicteric sclerae ENMT: external ear and nose normal, oropharynx normal Neck: normal visual inspection and trachea midline Respiratory: normal respiratory effort, lungs clear to auscultation Cardiovascular: RRR, no murmur, no edema left sided chest wall tenderness reproducing pain Gastrointestinal (Abdomen): Percussion/Palpation: abdomen soft; abdomen nontender, no guarding and abdomen not rigid Musculoskeletal: Head/Neck/Chest: normocephalic and head atraumatic Extremities: strength 5/5 throughout Skin: no rashes, warm and dry Neurologic: moves all extremities and awake Psychiatric: Orientation: alert and oriented x 3 Affect: + anxious affect Mood: + anxious mood Suicidal Thoughts: denies suicidal thoughts Homicidal Thoughts: denies homicidal thoughts Principal Diagnosis Alcohol, benzodiazepine, and methamphetamine Abuse, Suicidal Gesture, Hyperglycemia secondary to uncontrolled type I DM Discharge Exam Constitutional well developed and well nourished; no acute distress Eyes + anicteric sclerae and PERRL ENMT external ear and nose normal, oropharynx normal Neck trachea midline, no thyromegaly Respiratory normal respiratory effort, lungs clear to auscultation Cardiovascular RRR, no murmur, no edema Gastrointestinal (Abdomen) normal bowel sounds, soft, nontender, no hepatosplenomegaly Musculoskeletal no cyanosis or clubbing, extremities motor strength 5/5 Skin no rashes, warm and dry Neurologic PERRL, EOMI, accommodation nl, no face palsy, no dysarthria Psychiatric Orientation: alert and oriented x 3 Lymphatic no cervical or axillary lymphadenopathy Discharge Data Allergies Allergy/AdvReac Type Severity Reaction Status Date / Time morphine Allergy Intermediate HIVES Verified 08/17/19 21:28 Consultations 08/17/19 19:35 ED Decision to Admit Stat 08/17/19 22:35 Consult Case Management - Discharge Planning Routine Consult Psychiatry Routine Ordered Studies 08/17/19 16:04 CT chest wo con Stat Hospital Course (1) Alcohol abuse: Mr. Rigo Vazquez is a 34 y/o male with past medical hx of DM1, polysubstance abuse, prior psych hospitalizations, anxiety, depression, who presented for EtOH/Drug crisis and recent suicidal attempt with methamphetamine overdose. EtOH negative on admission. Last drink ~9am on 08/17. Given banana bag x 1 in ER. * Psych consult, 1:1 for observation secondary to suicidal ideation and recent attempt via IV injection of meth. Utilized AWSS protocol and only received one dose on 08/18. Score prior to discharge 0. * Continued thiamine, folic acid PO * Vitals remained stable throughout entire admission. BP 129/78. Running 70- 90bpm on telemetry. * Given librium in lieu of xanax, although patient did not appear to have any signs of active withdrawal during inpatient stay * Vistaril q6 prn added although patient refused * Started librium evening of 08/18 BID --> increased to 25mg PO TID on 08/19 --> discontinued at discharge as no signs of withdrawal * Initiated and continued gabapentin 300mg TID for EtOH and benzo abuse-this can be tapered down over time * Prazosin 4mg HS was initiated for reported PTSD * 201 on chart * Started and continued pepcid and carafate for indigestion (2) Drug abuse: * Reported benzo use daily for 2 weeks, anywhere from 1-12mg per day. Also with reported hx marijuana use. Approximately 6 beers per day or 4-5 mixed drinks for the past year. * Crystal meth for the past two weeks, 5 days ago injecting in attempted suicide to end his life * UA +amphetamines, ASA and APAP negative * Agreeable to inpatient psychiatric hospitalization and subsequent drug/alcohol rehab [facility] ([facility]) Suicidal ideations: * Stated he does not want to live like this any longer. 1:1 until discharged to inpatient psych * Psych consult with patient meeting criteria for inpatient hospitalization. * Hx depression, anxiety, PTSD -- has not been on any medications for months -- had previously trialed depakote, seroquel, celexa, vistaril, wellbutrin, ambien, lyrica, paxil and thorazine per his account * Medically stable for inpatient psych (4) Hyperglycemia: * Type 1 DM, reported he is on novolog 70/30 insulin and takes 25 units twice daily, plus meal time insulin on a sliding scale basis. Glucose here previously in 250s, no anion gap, ketones in urine, but B-hydroxy acid wasn't reported bc of hemolysis of sample * had significant hyperglycemia at times in the 300s-400s while here * Multiple adjustments made to ISS and CR/CF during inpatient stay, as patient with increased carbohydrate consumption and unable to truly get a fasting blood sugar. * Pharmacy consult for glycemic control. * BSG as high as 452 (in the midst of eating), however had been 100-260s since afternoon 08/19 * Patient to be discharged on NPH 25units BID with 10units novolog with meals and sliding scale-typed out in detail on instructions for him (5) Rib contusion: * Negative chest CT for fracture after having pain from passing out due to meth overdose * Trace blood but non-specific for kidney injury (6) Diabetes type 1, uncontrolled: * See above. Took 70/30 25 units BID per patient as outpatient. Most recent A1c 12.3% this admission. * Diabetic education, pharmacy consult for glycemic management. * See above under hyperglycemia (7) DVT prophylaxis: * Lovenox SQ Dispo: discharged to inpatient psych at [facility] Total Time Total Time Spent Total Time Spent (In Minutes): 60 Discharge Plan Discharge Items Patient Disposition: Transfer Behavioral Health Fac Reason For Visit: DRUG/ETOH WITHDRAWAL Discharge Diagnosis: Alcohol and Methamphetamine Abuse, Suicidal Ideation Condition on Discharge: Good Health Concerns: You have been hospitalized for an acute medical problem. During your stay at [facility], we have made an effort to correct the problem that brought you to the hospital while keeping you as comfortable as possible. Medications were used to bring your condition under control and your discharge instructions will include directions for any medications you should take after leaving the hospital. Please make sure you see your Primary Care Provider as part of your follow up plan. Activity: Resume your previous activity Non-emergency contact: Primary Care Provider Call non-emergency contact if: you have any medication questions Follow-up/Referrals: PCP,NO [Primary Care Provider] - Diet: Carb Count or DM1 Addtl Attending Provider Instructions: You should continue with daily folate and thiamine supplementation given history of alcohol abuse. Regarding your insulin management, it has been determine that you should utilized NPH 27 units SQ TWICE daily as well as Humalog 10 units with meals. Your blood sugars should be checked ACHS. The following sliding scale should be used for additional short acting insulin for sugars greater than 150mg/dl Sliding Scale * BSG 151-180mg/dl - 1 unit * BSG 181-210mg/dl - 2 units * BSG 211-240mg/dl - 3 units * BSG 241-270mg/dl - 4 units * BSG 271-300mg/dl - 5 units * BSG 301-330mg/dl - 6 units * BSG 331-360mg/dl - 7 units * BSG 361-390mg/dl - units You have been given librium while inpatient to help combat symptoms of withdrawal. You were also given gabapentin as well as prazosin to help with PTSD. These medications may be continued, as gabapentin 300mg by mouth, three times daily and prazosin 4mg by mouth at night. For symptoms of indigestions/reflux you were started on carafate (sucralfate) and pepcid (famotidine). You may continue these medications. Smoking cessation is strongly encouraged. You may utilize a nicotine patch as below. You are being discharged to an inpatient psychiatric facility on a voluntary commitment (201). The psychiatrist at [facility] will help you work out a medication regimen that works best for you and helps to manage your symptoms. It has been a pleasure assisting with your medical care during this hospitalization. Take care! Pending Studies at Discharge: No Stand-Alone Forms: [facility], Smoking Cessation, Suicide Prevention Resources Medications and DC Order Prescriptions: New prazosin 1 mg Capsule 4 mg PO HS 10 Days Qty: 40 RF: 0 nicotine 7 mg/24 hr Patch 24 Hour 14 mg transdermal QAM 14 Days Qty: 1 RF: 0 gabapentin 300 mg Capsule 300 mg PO TID 10 Days Qty: 30 RF: 0 sucralfate 100 mg/mL Suspension 10 ml PO ACHS Qty: 420 RF: 0 insulin aspart U-100 [Novolog Flexpen U-100 Insulin] 100 unit/mL (3 mL) Insulin Pen See Rx Instructions .ROUTE .COMPLEX Qty: 15 RF: 0 thiamine HCl (vitamin B1) [Vitamin B-1] 100 mg Tablet 100 mg PO QAM 30 Days Qty: 30 RF: 0 Novolin N NPH U-100 Insulin 100 unit/mL Suspension 27 unit SC BIDM 30 Days Qty: 16.2 RF: 0 folic acid 1 mg Tablet 1 mg PO QAM 30 Days Qty: 30 RF: 0 famotidine [Pepcid AC] 20 mg tablet 20 mg PO BID 10 Days Qty: 20 RF: 0 Discontinued insulin asp prt-insulin aspart [Novolog Mix 70-30FlexPen U-100] 100 unit/mL (70-30) Insulin Pen 25 unit SUBCUT BID RF: 0 Discharge Orders: Discharge Order (Routine); Ordered 08/20/19 Ordered By: Stephanie Leyva Admission Data Admit Date/Time: 08/17/19 21:05 Attending Provider: Tussey,Stephanie B. Admit Provider: Gilberto Rodriguez Primary Care Provider: PCP,NO Other Providers: Ridge Iyer ; Michela Daniels Other Interventions: Discharge Summary Assessment (RN) Last Done: 08/20/19 16:38 DC Date/Time DO NOT enter until pt leaves facility: 08/20/19 18:53 Supervising Physician Co-Signing Physician Notes PA Supervision Note: I personally saw and examined the patient. I verified all aponte points and agree with MARSHA Faria with the following exceptions and/or additions: Pt without any signs of withdrawal from benzos, EtOH. Is anxious for discharge, again requesting "something" for anxiety during transport-one dose of ativan ordered by me prior to discharge. Labs reviewed VSS NAD, AAOx3 RRR no mgr CTAB no wcr Ext no edema Psych: anxious mood and congruent affect Stable for dc to inpatient Psych facility Plan as outlined above Coding Level of Care Code 40510 OBS Care - Discharge Diagnoses Alcohol abuse F10.10 Drug abuse F19.10 Suicidal ideations R45.851 Hyperglycemia R73.9 Rib contusion S20.219A Diabetes type 1, uncontrolled E10.65 DVT prophylaxis Z29.9
[2019-08-20] MEDS ORDERED: LORazepam 0.5 MG TAB PO STA (16:32)
== END 2019-08-20 18:53 | DRG 638 ==
LOC: 2S 15:55 → ED 15:55 → SUATTDRO 21:05 → 2S 22:26

== ENCOUNTER 2020-03-30 09:28 | Inpatient (IN) ==
[2020-03-30] MEDS ORDERED: PHARMACY GLYCEMIC MGMT CONSULT STA (09:43)
[2020-03-30] MEDS ORDERED: DKA GOAL RANGE 150-250 mg/dl ONE ×2 (09:43→13:32)
[2020-03-30] MEDS ORDERED: SODIUM CHLORIDE 0.9% 1000ML 1,000 ML IV SCH (09:45)
[2020-03-30] MEDS ORDERED: SODIUM CHLORIDE 0.9% 1000ML 2,000 ML IV SCH (09:45)
--- NOTE | 2020-03-30 10:14 | XRay Report ---
XR chest 1V portable HISTORY: weakness COMPARISON: Chest CT 08/17/2019. Chest x-ray 03/09/2016. FINDINGS: Diffuse right lateral fifth and sixth ribs are again noted. The lungs are clear. The heart is at the upper limits of normal. This could be due to the AP portable technique. No pleural effusion s. No pneumothorax. No evidence for pulmonary edema. IMPRESSION: No acute process. ACT 112: Negative or not required by law. Electronically signed by: Jayden Montgomery M.D. 03/30/2020 10:12 AM
[2020-03-30 11:01] LABS: Hematocrit (blood only) 40.3 % (42-52); Mean Corpuscular Hemoglobin 28.1 pg (25-34); Mean Corpuscular Hgb Conc 32.3 g/dL (32-36); Mean Corpuscular Volume 87.2 fL (80-100); Platelet Count 337 K/uL (130-400); Red Blood Count 4.62 M/uL (4.7-6.1); White Blood Count 38.75 K/uL (4.8-10.8)
[2020-03-30 11:05] LABS: Alanine Aminotransferase 16 U/L (12-78); Albumin Globulin Ratio 0.8 (0.9-2); Albumin Level 3.7 gm/dl (3.4-5.0); Alkaline Phosphatase 106 U/L (45-117); Aspartate Aminotransferase 12 U/L (15-37); BUN Creatinine Ratio 20.3 (10-20); Bilirubin,Total 0.5 mg/dl (0.2-1); Blood Urea Nitrogen 47 mg/dl (7-18); Calcium 9.5 mg/dl (8.5-10.1); Carbon Dioxide < 5 mmol/L (21-32); Chloride 90 mmol/L (98-107); Creatinine Clr Calc Pharmacy 47.9 ml/min; Est GFR (African American) 41.3; Est GFR (Non-African American) 35.6; Globulin 4.7 gm/dl (2.5-4.0); Glucose 1002 mg/dl (70-99); Magnesium 3.1 mg/dl (1.8-2.4); Potassium 6.2 mmol/L (3.5-5.1); Sodium 131 mmol/L (136-145); Total Protein 8.4 gm/dl (6.4-8.2); Troponin I < 0.015 ng/ml (0-0.045)
[2020-03-30] MEDS ORDERED: SODIUM CHLORIDE 0.9% 1000ML 1,000 ML IV ONE (11:10)
[2020-03-30] MEDS ORDERED: DAPTOMYCIN CONSULT ACTIVE PRN (11:10)
[2020-03-30] MEDS ORDERED: DAPTOmycin 450 MG in SYRINGE 0 ML IV ONE (11:10)
[2020-03-30] MEDS ORDERED: CEFEPIME 2,000 MG/20 ML VIAL IV STA (11:10)
[2020-03-30] MEDS ORDERED: CARBOHYDRATES FOR HYPOGLYCEMIA PO PRN (11:15)
[2020-03-30] MEDS ORDERED: GLUCOSE 40% GEL 15 GM TUBE PO PRN (11:15)
[2020-03-30] MEDS ORDERED: GLUCOSE 10 TABS/TUBE PO PRN (11:15)
[2020-03-30] MEDS ORDERED: NovoLIN-R BOLUS FROM BAG IV ONE (11:15)
[2020-03-30] MEDS ORDERED: GLUCAGON FOR INJ 1 MG VIAL IM PRN (11:15)
[2020-03-30] MEDS ORDERED: DEXTROSE 50% 50 ML SYRINGE IV PRN (11:15)
[2020-03-30 11:20] LABS: Basophils # (auto) 0.01 K/uL (0-0.2); Eosinophils # (auto) 0.03 K/uL (0-0.5); Eosinophils % (auto) 0.1 %; Immature Granulocytes # (auto) 0.09 K/uL (0.00-0.02); Immature Granulocytes % (auto) 0.2 %; Lymphocytes # (auto) 1.78 K/uL (1.2-3.4); Lymphocytes % (auto) 4.6 %; Monocytes # (auto) 1.07 K/uL (0.11-0.59); Monocytes % (auto) 2.8 %; Neutrophils # (auto) 35.77 K/uL (1.4-6.5); Neutrophils % (auto) 92.3 %; Toxic Vacuolation 1+
--- NOTE | 2020-03-30 11:27 | Emergency Department Note ---
Impression & Plan DKA (diabetic ketoacidoses) ED Provider Note INFORMANT: Patient ED PROVIDER(S): Alonzo Sullivan MD CHIEF COMPLAINT: Hyperglycemia PLAN: Disposition: Admitted Condition: Critical MEDICAL DECISION MAKING: Patient presented emergency department having of hyperglycemia. He appeared ill and had Kussmaul respirations. This was very concerning for DKA. The patient had a blood glucose measuring over 600 by bedside check. He had IV established. He was given aggressive IV fluid hydration. He was swabbed for COVID which was negative. The patient's chest x-ray was unremarkable. His CBC revealed a marked leukocytosis and chemistry panel confirmed DKA with severe hyperglycemia and profound acidosis. The patient had hyperkalemia as well. He was started on an insulin drip. He was given additional IV fluids. The patient had an ECG performed. There was not any significant ST segment changes. T waves were somewhat peaked. The patient was given bicarb after his acidosis confirmed on ABG. The patient was also given IV calcium. The patient did have an elevated lactate. He was given empiric antibiotics to cover for possible sepsis. Consultation was made with critical care medicine, Dr. Espinal. The patient was accepted to the ICU. Consultation was also made with internal medicine. Discussed the case with Jamaica Ford PA-C. The patient will be admitted under Dr. Kendall. Triage Nursing notes reviewed and agree them. Vital Signs: reviewed and remarkable for tachycardia and tachypnea Differential diagnosis: DKA, infection, dehydration, metabolic abnormality, hypo/hyperglycemia, electrolyte disturbance, anemia, hypoxia, cardiac sources, intracerebral event, toxicologic, neurologic, as well as other pathologies. Diagnostics interpreted by me: ECG: Twelve-lead ECG reveals a sinus tachycardia at 109 bpm. There are PVCs present. Peak morphology to T waves. The axis and QRS duration normal. No ST elevation or depression. Cardiac Monitoring: Cardiac monitoring ordered by me: The patient was placed on continuous cardiac monitoring and observed. It revealed a sinus tachycardia at 102 beats per minute without ectopy or evidence of dysrhythmia. Imaging studies: Chest x-ray. Findings: A chest x-ray was performed and revealed no pneumothorax, effusion, infiltrate, pulmonary edema, free air under the diaphragm, or wide mediastinum. Impression: No acute disease. Consultation(s): Dr. Espinal, ICU HPI: The patient is a 35 year old male who presents to the Emergency Room with complaints of hyperglycemia. This started a few days ago and is worsening. The patient also notes the following associated symptoms, dry mouth, feeling feverish. The patient has found no relieving factors. Patient states he has been out of his insulin. He feels weak. Currently does not have a PCP. Pt denies LOC, headache, neck pain, chest pain, breathing difficulties, nausea, vomiting, abdominal pain, back pain, diarrhea, rash, or other complaints. ROS: See above HPI for pertinent positives & negatives. A total of 10 systems reviewed and were otherwise negative. PAST MEDICAL HISTORY:See Below, diabetes PAST SURGICAL HISTORY:See Below, FAMILY HISTORY:See Below SOCIAL HISTORY:See Below, smokes HOME MEDICATIONS:See Below ALLERGIES:See Below VITALS:See Below PHYSICAL EXAMINATION: GENERAL: Awake, ill-appearing, in moderate distress HENT: Normocephalic, atraumatic. Oropharynx dry mucous membranes. EYES: Normal conjunctiva. Sclera non-icteric. NECK: Inspection normal. Non-tender. Supple. No nuchal rigidity. FROM. No masses. RESPIRATORY: Clear to auscultation. No wheezes. No rales. Normal respiratory effort. CARDIAC: Tachycardic rate. Normal rhythm. No murmurs. No rubs. Extremities warm and well perfused. Pulses equal. No JVD. GI: Soft, non-distended. No tenderness to palpation. No rebound or guarding. No masses. RECTAL: Deferred. MUSCULOSKELETAL: Atraumatic. Chest examination reveals no tenderness. The back is symmetrical on inspection without obvious abnormality. There is no CVA tenderness to palpation. No joint edema. LOWER EXTREMITIES: Calves are equal size bilaterally and non-tender. No edema. No discoloration. NEURO: Normal sensorium. No sensory or motor deficits noted. SKIN: Healed skin graft noted on the left flank and left leg. No cellulitis. They are erythematous in color but the patient states that is chronic. No rash or jaundice noted. ED COURSE: Critical Care: I have personally spent greater than 80 minutes of critical care time in the direct management of this patient. This includes bedside care, interpretation of diagnostic studies, and testing, discussion with consultants, patient, and other required patient management activities. These minutes are in excess of all separately billable procedures. Alonzo Sullivan MD Past Med/Surg History Medical History (Updated 03/30/20 @ 11:59 by Roberta Ford PA-C) Benzodiazepine abuse Cannabis abuse Depressed GI bleed Hyperglycemia Methamphetamine abuse No significant family history Superficial thrombophlebitis Surgical History No significant past surgical history Social History Smoking Status: Current every day smoker Cigarettes Per Day: 20; Second Hand Exposure: No; Do You Dip or Chew Tobacco: No; Tobacco Cessation Education Requested by Patient: No Hx Alcohol Use: Yes Alcohol type: hard liquor Hx Substance Use: Yes Last Used Substance: Unknown Substance Use Type Other:: history of ETOH withdrawl Preferred Language: Iranian Communication Ability: Effective Communication Ability Comment: mental status altered Air Sampler Required: No Beliefs That Will Affect Care: None Current Living Situation: Family Other Information That Helps Us Care for You: No Feels Safe at Home: Yes Safety Concerns: Feels Safe At This Time Allergies Allergies Allergy/AdvReac Type Severity Reaction Status Date / Time morphine Allergy Intermediate HIVES Verified 03/30/20 12:58 Home Meds Previous Rx's Medication Instructions Recorded insulin aspart U-100 [Novolog See Rx Instructions .ROUTE 08/20/19 Flexpen U-100 Insulin] .COMPLEX #15 ml sucralfate 10 ml PO ACHS #420 ml 08/20/19 Results & Data (ED) Vital Signs Vital Signs - 24 hr 03/30/20 09:36 03/30/20 09:38 03/30/20 09:40 Temperature Source Oral Pulse Rate 102 H 101 H 100 H Pulse Rate [Apical] Pulse Rate from SpO2 Sensor 103 H 101 H 100 H Respiratory Rate 32 H 31 H 31 H Blood Pressure 111/55 L Blood Pressure [Right Arm] Blood Pressure Mean 74 Blood Pressure Mean [Right Arm] Pulse Oximetry 100 100 100 Oxygen Delivery Method Room Air Room Air Room Air Sepsis Recent Fever Within 48 Hours No Sepsis New/Unexplained Change in Mental Status No Sepsis Action Taken by Nursing No Action Required 03/30/20 09:50 03/30/20 10:00 03/30/20 10:10 Temperature Source Pulse Rate 100 H 102 H 99 H Pulse Rate [Apical] Pulse Rate from SpO2 Sensor Respiratory Rate 25 H 32 H 26 H Blood Pressure 122/65 Blood Pressure [Right Arm] Blood Pressure Mean 75 Blood Pressure Mean [Right Arm] Pulse Oximetry Oxygen Delivery Method Room Air Room Air Room Air Sepsis Recent Fever Within 48 Hours Sepsis New/Unexplained Change in Mental Status Sepsis Action Taken by Nursing 03/30/20 10:14 03/30/20 10:20 03/30/20 10:30 Temperature Source Pulse Rate 99 H Pulse Rate [Apical] Pulse Rate from SpO2 Sensor Respiratory Rate 28 H 15 24 Blood Pressure 121/69 Blood Pressure [Right Arm] Blood Pressure Mean 83 Blood Pressure Mean [Right Arm] Pulse Oximetry Oxygen Delivery Method Room Air Room Air Room Air Sepsis Recent Fever Within 48 Hours Sepsis New/Unexplained Change in Mental Status Sepsis Action Taken by Nursing 03/30/20 10:40 03/30/20 10:46 03/30/20 10:50 Temperature Source Pulse Rate 100 H 101 H Pulse Rate [Apical] 101 H Pulse Rate from SpO2 Sensor 101 H 101 H Respiratory Rate 27 H 26 H 25 H Blood Pressure 133/60 Blood Pressure [Right Arm] 133/60 Blood Pressure Mean 85 Blood Pressure Mean [Right Arm] 84 Pulse Oximetry 100 100 Oxygen Delivery Method Room Air Room Air Room Air Sepsis Recent Fever Within 48 Hours Sepsis New/Unexplained Change in Mental Status Sepsis Action Taken by Nursing 03/30/20 11:00 03/30/20 11:01 03/30/20 11:10 Temperature Source Pulse Rate 102 H 102 H 102 H Pulse Rate [Apical] Pulse Rate from SpO2 Sensor 102 H 102 H 102 H Respiratory Rate 27 H 29 H 22 Blood Pressure 133/67 Blood Pressure [Right Arm] Blood Pressure Mean 87 Blood Pressure Mean [Right Arm] Pulse Oximetry 100 100 100 Oxygen Delivery Method Room Air Room Air Room Air Sepsis Recent Fever Within 48 Hours Sepsis New/Unexplained Change in Mental Status Sepsis Action Taken by Nursing 03/30/20 11:20 03/30/20 11:30 03/30/20 11:40 Temperature Source Pulse Rate 79 Pulse Rate [Apical] Pulse Rate from SpO2 Sensor 106 H 105 H Respiratory Rate 17 27 H 27 H Blood Pressure Blood Pressure [Right Arm] Blood Pressure Mean Blood Pressure Mean [Right Arm] Pulse Oximetry 100 100 Oxygen Delivery Method Room Air Room Air Room Air Sepsis Recent Fever Within 48 Hours Sepsis New/Unexplained Change in Mental Status Sepsis Action Taken by Nursing Laboratory Data Result diagrams: 03/30/20 10:10 03/30/20 17:27 Lab Results 03/30/20 03/30/2003/30/20 Range/Units 09:37 10:10 10:10 WBC 38.75 H* (4.8-10.8) K/uL RBC 4.62 L (4.7-6.1) M/uL Hgb 13.0 L (14.0-18.0) g/dL Hct 40.3 L (42-52) % MCV 87.2 (80-100) fL MCH 28.1 (25-34) pg MCHC 32.3 (32-36) g/dL Plt Count 337 (130-400) K/uL Immature Gran % (Auto) 0.2 % Neut % (Auto) 92.3 % Lymph % (Auto) 4.6 % Valencia % (Auto) 2.8 % Eos % (Auto) 0.1 % Baso % (Auto) 0.0 % Neut # (Auto) 35.77 H (1.4-6.5) K/uL Lymph # (Auto) 1.78 (1.2-3.4) K/uL Valencia # (Auto) 1.07 H (0.11-0.59) K/uL Eos # (Auto) 0.03 (0-0.5) K/uL Baso # (Auto) 0.01 (0-0.2) K/uL Immature Gran # (Auto) 0.09 H (0.00-0.02) K/uL Toxic Vacuolation 1+ Sodium 131 L (136-145) mmol/L Potassium 6.2 H* (3.5-5.1) mmol/L Chloride 90 L (98-107) mmol/L Carbon Dioxide < 5 L* (21-32) mmol/L Anion Gap 39.0 H (3-11) BUN 47 H (7-18) mg/dl Creatinine 2.32 H (0.6-1.4) mg/dl Est Cr Clr Drug Dosing 47.9 ml/min Est GFR ( Amer) 41.3 Est GFR (Non-Af Amer) 35.6 BUN/Creatinine Ratio 20.3 H (10-20) Glucose 1002 H* (70-99) mg/dl POC Glucose > 600 H* (70-99) mg/dl Calcium 9.5 (8.5-10.1) mg/dl Magnesium 3.1 H (1.8-2.4) mg/dl Total Bilirubin 0.5 (0.2-1) mg/dl AST 12 L (15-37) U/L ALT 16 (12-78) U/L Alkaline Phosphatase 106 (45-117) U/L Troponin I < 0.015 (0-0.045) ng/ml Total Protein 8.4 H (6.4-8.2) gm/dl Albumin 3.7 (3.4-5.0) gm/dl Globulin 4.7 H (2.5-4.0) gm/dl Albumin/Globulin Ratio 0.8 L (0.9-2) Beta-Hydroxybutyric Acd 34.88 H (0.2-2.81) mg/dl TSH 2.180 (0.300-4.500) uIu/ml COVID-19 Eval Order COVID-19 PCR (Negative) 03/30/20 03/30/20 Range/Units 10:50 10:50 WBC (4.8-10.8) K/uL RBC (4.7-6.1) M/uL Hgb (14.0-18.0) g/dL Hct (42-52) % MCV (80-100) fL MCH (25-34) pg MCHC (32-36) g/dL Plt Count (130-400) K/uL Immature Gran % (Auto) % Neut % (Auto) % Lymph % (Auto) % Valencia % (Auto) % Eos % (Auto) % Baso % (Auto) % Neut # (Auto) (1.4-6.5) K/uL Lymph # (Auto) (1.2-3.4) K/uL Valencia # (Auto) (0.11-0.59) K/uL Eos # (Auto) (0-0.5) K/uL Baso # (Auto) (0-0.2) K/uL Immature Gran # (Auto) (0.00-0.02) K/uL Toxic Vacuolation Sodium (136-145) mmol/L Potassium (3.5-5.1) mmol/L Chloride (98-107) mmol/L Carbon Dioxide (21-32) mmol/L Anion Gap (3-11) BUN (7-18) mg/dl Creatinine (0.6-1.4) mg/dl Est Cr Clr Drug Dosing ml/min Est GFR ( Amer) Est GFR (Non-Af Amer) BUN/Creatinine Ratio (10-20) Glucose (70-99) mg/dl POC Glucose (70-99) mg/dl Calcium (8.5-10.1) mg/dl Magnesium (1.8-2.4) mg/dl Total Bilirubin (0.2-1) mg/dl AST (15-37) U/L ALT (12-78) U/L Alkaline Phosphatase (45-117) U/L Troponin I (0-0.045) ng/ml Total Protein (6.4-8.2) gm/dl Albumin (3.4-5.0) gm/dl Globulin (2.5-4.0) gm/dl Albumin/Globulin Ratio (0.9-2) Beta-Hydroxybutyric Acd (0.2-2.81) mg/dl TSH (0.300-4.500) uIu/ml COVID-19 Eval Order Covid19 Done at [facility] COVID-19 PCR NEGATIVE (Negative) Administered Medications Heparin Sodium (Porcine) (Heparin Sod 5,000 Unit/0.5 Ml Vial) 5,000 units SQ Q8 PEDRO Stop: 04/29/20 13:59 Last Admin: 03/30/20 15:51 Dose: 5,000 units Documented by: [id number] Cosigned by: [id number] Insulin Human Regular 250 (units/ Sodium Chloride) 250 mls @ 10.8 mls/hr IV .Q 23H9M PEDRO; Protocol Stop: 04/29/20 09:44 Last Titration: 03/30/20 17:11 Dose: 8.6 units/hr, 8.6 mls/hr Documented by: [id number] Cosigned by: [id number] Titration: 03/30/20 16:02 Dose: 10.8 units/hr, 10.8 mls/hr Documented by: [id number] Cosigned by: [id number] Titration: 03/30/20 13:45 Dose: 9 units/hr, 9 mls/hr Documented by: [id number] Cosigned by: [id number] Admin: 03/30/20 11:34 Dose: 7.5 units/hr, 7.5 mls/hr Documented by: [id number] Cosigned by: [id number] Parenteral Electrolytes (Normosol-R) 1,000 mls @ 200 mls/hr IV .Q5H PEDRO Stop: 04/29/20 13:31 Last Admin: 03/30/20 13:46 Dose: 200 mls/hr Documented by: [id number] Miscellaneous Information (Daptomycin Consult Active) 1 ea N/A UD PRN PRN Reason: Consult Stop: 04/29/20 11:09 Last Admin: 03/30/20 11:53 Dose: 1 ea Documented by: [id number] Tramadol HCl (Tramadol Hcl 50 Mg Tablet) 50 mg PO Q8H PRN PRN Reason: Moderate to Severe Pain Stop: 04/29/20 15:59 Last Admin: 03/30/20 15:54 Dose: 50 mg Documented by: [id number] Discontinued Medications Calcium Gluconate (Calcium Gluconate 10% 10 Ml Vial) Confirm Administered Dose 1,000 mg IV .STK-MED ONE Stop: 03/30/20 12:40 Last Admin: 03/30/20 12:56 Dose: Not Given Documented by: [id number] Sodium Chloride (Nss 1000ml) 2,000 mls @ 999 mls/hr IV .Q2H1M PEDRO Stop: 03/30/20 11:45 Last Infusion: 03/30/20 12:43 Dose: 0 mls/hr Documented by: [id number] Admin: 03/30/20 10:10 Dose: 999 mls/hr Documented by: [id number] Sodium Chloride (Nss 1000ml) 1,000 mls @ 125 mls/hr IV .Q8H PEDRO Stop: 03/30/20 17:44 Last Admin: 03/30/20 14:22 Dose: Not Given Documented by: [id number] Cefepime HCl (Maxipime) 2,000 mg in 20 mls @ 5 mls/min IV NOW STA; Protocol Stop: 03/30/20 11:13 Last Admin: 03/30/20 12:35 Dose: 5 mls/min Documented by: [id number] Daptomycin 450 mg/ Syringe 9 mls @ 4.5 mls/min IV ONE ONE; Protocol Stop: 03/30/20 11:11 Last Admin: 03/30/20 12:35 Dose: 4.5 mls/min Documented by: [id number] Sodium Chloride (Nss 1000ml) 1,000 mls @ 999 mls/hr IV .Q1H1M ONE Stop: 03/30/20 12:10 Last Infusion: 03/30/20 12:43 Dose: 0 mls/hr Documented by: [id number] Admin: 03/30/20 11:34 Dose: 999 mls/hr Documented by: [id number] Calcium Gluconate 1,000 mg/ (Sodium Chloride) 60 mls @ 240 mls/hr IV NOW STA Stop: 03/30/20 12:47 Last Infusion: 03/30/20 13:00 Dose: 0 mls/hr Documented by: [id number] Admin: 03/30/20 12:43 Dose: 240 mls/hr Documented by: [id number] Sodium Bicarbonate 50 meq/ (Sterile Water) 100 mls @ 200 mls/hr IV TODAY@1330 ONE Stop: 03/30/20 13:59 Last Infusion: 03/30/20 14:18 Dose: 0 mls/hr Documented by: [id number] Admin: 03/30/20 13:40 Dose: 200 mls/hr Documented by: [id number] Insulin Human Regular (Novolin-R Bolus From Bag) 8 units IV ONE ONE Stop: 03/30/20 11:16 Last Admin: 03/30/20 11:39 Dose: 8 units Documented by: [id number] Cosigned by: [id number] Ondansetron HCl (Ondansetron Inj 2 Mg/Ml 2 Ml Vial) 4 mg IV Q4H PRN PRN Reason: Nausea And Vomiting Stop: 04/29/20 13:31 Last Admin: 03/30/20 16:02 Dose: 4 mg Documented by: [id number] Sodium Bicarbonate (Sodium Bicarb 8.4% Inj 50 Meq/50 Ml Syr) 50 meq IV NOW STA Stop: 03/30/20 12:23 Last Admin: 03/30/20 12:35 Dose: 50 meq Documented by: [id number] Discharge Plan Visit Data Chief Complaint: Hyperglycemia ED Provider: Alonzo Sullivan Discharge Problem: DKA (diabetic ketoacidoses) Patient Disposition: Admitted As Inpatient Discharge Instructions Interventions: ED Discharge Assessment Last Done: 03/30/20 13:03
[2020-03-30] MEDS: INSULIN REGULAR 250 UNITS in SODIUM CHLORIDE 0.9% 247.5 ML IV SCH (11:34)
--- NOTE | 2020-03-30 11:40 | History & Physical Report ---
Date of Service March 30, 2020 Assessment & Plan (1) DKA (diabetic ketoacidoses): -Admit to ICU, Dr. Espinal consulted -Start on insulin drip, DKA protocol ordered -Patient has already received 3L NSS in the ER, continue maintenance fluids, add potassium if hypokalemic after recheck BMP, was 6.2 on admission. -Trend BMP, mag, phos q4h -AG of 39, VBG obtained, bicarb ordered in the ER -Check A1c -Consider conservation educator consult -Chest x-ray evaluated for concern with elevated white count, xr negative, checking COVID swab rapid -WBC likely reactive but must rule out other causes of infection, follow urine culture, blood cultures -IV antibiotics with cefepime and daptomycin started in the ER, will continue (2) Diabetes type 1, uncontrolled: -DKA as above (3) CHERYL (acute kidney injury): -BUN elevated at 47, creatinine 2.32, trending with BMP, IV fluids as above (4) Depressed: - Unknown if pt follows with outpt psychiatry or counselor, address once pt less confused. Attempted to call family however did not answer. (5) Alcohol abuse: -History of such, encourage cessation (6) Methamphetamine abuse: (7) Cannabis abuse: (8) Benzodiazepine abuse: -Will check urine tox screen with history of methamphetamine, cannabis, benzodiazepine abuse. It is noted that he also chooses to use IV crystal meth in the past. Denies history of HIV, hep B or hep C. (9) DVT prophylaxis: - teds, heparin subcu CODE: Full code Dispo: From home, likely to remain in the hospital x 1-2 days. Attempted to call contact Charla, listed on the chart but there was no answer. Will attempt to call again later today. History of Present Illness Primary Care Provider: NO PCP This is a 35-year-old male with past medical history of DM type I, substance abuse, prior psychiatric hospitalizations, anxiety, depression who presents for episode of DKA. Patient is found to have elevated WBC = 38.75, glucose is greater than 1000, anion gap = 39. He is confused during my examination. Cannot give me exact timeframe of when he last took insulin but told nursing staff earlier that he ran out of this a few days ago. He denies any recent drug use, smokes occasional cigarettes, marijuana, does not vape. He admits to drinking alcohol daily but cannot remember when last had a drink. He did not recall vomiting however has black emesis on his lips and in his mouth. Patient has been started on an insulin drip, finished 2 L NSS and has another 1L to start after second IV site obtained. Pt has been pancultured. IV antibiotics including cefepime and daptomycin have been started empirically. Allergies Allergy/AdvReac Type Severity Reaction Status Date / Time morphine Allergy Intermediate HIVES Verified 03/30/20 12:58 Home Medications Home Medications Medication Instructions Recorded Confirmed Type amlodipine [Norvasc] 5 mg PO QAM #30 tab 04/02/20 Rx diabetic supplies, miscellan. #1 ea 04/02/20 Rx insulin aspart U-100 [Novolog 5 unit SC AC #15 ml 04/02/20 Rx Flexpen U-100 Insulin] insulin glargine [Lantus Solostar 20 unit SC QAM #15 ml 04/02/20 Rx U-100 Insulin] pantoprazole 40 mg PO QAM #30 tab 04/02/20 Rx Past Med/Surg History Medical History (Updated 04/01/20 @ 14:40 by Darrell Giang MD) Benzodiazepine abuse Cannabis abuse Depressed GI bleed Hyperglycemia Methamphetamine abuse No significant family history Superficial thrombophlebitis Surgical History No significant past surgical history Social History Smoking Status: Current every day smoker Cigarettes Per Day: 20; Second Hand Exposure: No; Hx Alcohol Use: Yes Alcohol type: hard liquor Hx Substance Use: Yes Last Used Substance: Unknown Substance Use Type Other:: history of ETOH withdrawl Preferred Language: [place] Island[place] Communication Ability: Effective Customer Operations Specialist Required: No Beliefs That Will Affect Care: None Current Living Situation: Family Feels Safe at Home: Yes Review of Systems Review of Systems: Unobtainable due to cognitive status Physical Exam Physical Exam: General: awake, confused, multiple tattoos Head: Normocephalic, atraumatic ENT: PERRL, EOMI, no pharyngeal exudate, mucous membranes dry, black exudate around vermilion border as well as on tongue and posterior pharynx. History of gauged ears. Chest: Clear to auscultation, on room air, no adventitious breath sounds Cardiac: Regular rate and rhythm, no murmur, no JVD, normal peripheral pulses, good capillary refill Abdominal: NABS x 4 quadrants, soft, nondistended, nontender to palpation, no rebound or guarding Extremities: Left thigh s/p skin grafting extending up to the left hip and lower abdomen. Area of granular tissue not quite fully healed measuring approximately 2 x 3 cm over left iliac crest. Multiple tattoos. Normal inspection otherwise, no peripheral edema or erythema, calfs nontender to palpation Psych: normal mood Neuro: Awake, follows commands, cannot adequately participate in conversation or recall events, thinks that he is in [place]. No gross motor deficits, speech is clear, no peripheral sensory deficits Results & Data Results & Data ([facility]) Vital Signs (Past 12 Hours) Vital Signs Pulse Pulse Resp BP BP Pulse Ox 03/30/20 10:46 101 H 44 H 133/60 100 03/30/20 09:38 100 H 40 H 111/55 L 100 Diagnostic Findings XR chest 1V portable HISTORY: weakness COMPARISON: Chest CT 08/17/2019. Chest x-ray 03/09/2016. FINDINGS: Diffuse right lateral fifth and sixth ribs are again noted. The lungs are clear. The heart is at the upper limits of normal. This could be due to the AP portable technique. No pleural effusions. No pneumothorax. No evidence for pulmonary edema. IMPRESSION: No acute process. Code Status & VTE Plan Code Status Full code Supervising Physician Co-Signing Physician Notes During my face to face encounter with the patient, I obtained a history and physical examination on the patient. I discussed plan of care with patient and Jamaica Ford and answered patient's questions. I reviewed above note and agree with it. Patient will be admitted to the ICU for DKA. Will place on IVF and Insulin drip. D/W tattoo technician will defer further management to ICU team. PG Care Time/CCT Total # of Minutes Spent Total Time Spent with Patient: Total time spent is greater than 50% in coordination of care (as documented) at patient's floor/unit and/or counseling patient: Coding Level of Care Code 17090 Initial Inpt Care Lvl 3 Diagnoses DKA (diabetic ketoacidoses) E11.10 Diabetes type 1, uncontrolled E10.65 CHERYL (acute kidney injury) N17.9 Depressed F32.9 Alcohol abuse F10.10 Methamphetamine abuse F15.10 Cannabis abuse F12.10 Benzodiazepine abuse F13.10 DVT prophylaxis Z29.9
[2020-03-30 12:00] LABS: Beta-Hydroxybutyrate 34.88 mg/dl (0.2-2.81)
[2020-03-30 12:16] LABS: HCO3 ABG 3 mmol/L (19-24); Oxygen Saturation ABG 99.1 % (90-95); PCO2 ABG 13 mmHg (35-46); PO2 ABG 177 mmHg (80-95)
[2020-03-30 12:20] LABS: Allen Test Pos (Pos)
[2020-03-30 12:21] LABS: pH ABG 7.05 (7.35-7.45)
[2020-03-30] MEDS ORDERED: SODIUM BICARB 8.4% INJ 50 MEQ/50 ML SYR IV STA (12:22)
[2020-03-30] MEDS ORDERED: CALCIUM GLUCONATE 10% 1,000 MG in SODIUM CHLORIDE 0.9% 50 ML IV STA (12:33)
[2020-03-30] MEDS ORDERED: CALCIUM GLUCONATE 10% 10 ML VIAL IV ONE (12:39)
[2020-03-30 13:10] LABS: Appearance Urine Clear (Clear); Bacteria Urine Automated Negative (Negative); Bilirubin Urine Negative (Negative); Blood Urine Negative (Negative); Color Urine Yellow; Glucose Urine UA 3+ (Negative); Ketones Urine 3+ (Negative); Leukocyte Esterase Urine Negative (Negative); Nitrite Urine Negative (Negative); Protein Urine 1+ (Negative); RBC Urine Automated 0-4 /hpf (0-4); Specific Gravity Urine 1.026 (1.000-1.030); Urobilinogen Urine Negative (Negative); WBC Urine Automated 0 /hpf (0-5)
[2020-03-30] MEDS ORDERED: SODIUM BICARBONATE IV ONE (13:30)
[2020-03-30] MEDS ORDERED: WATER IV ONE (13:30)
[2020-03-30] MEDS ORDERED: STERILE IV ONE (13:30)
[2020-03-30] MEDS ORDERED: INSULIN REGULAR 250 UNITS in SODIUM CHLORIDE 0.9% 247.5 ML IV SCH (13:32)
[2020-03-30] MEDS ORDERED: ACETAMINOPHEN 325 MG TAB PO PRN (13:32)
[2020-03-30] MEDS ORDERED: ONDANSETRON INJ 2 MG/ML 2 ML VIAL IV PRN (13:32)
[2020-03-30 13:42] LABS: Glucose 847 mg/dl (70-99)
[2020-03-30] MEDS: NORMOSOL-R 1,000 ML IV SCH ×2 (13:46→19:40)
--- NOTE | 2020-03-30 14:25 | Critical Care Consultation ---
Date of Consultation March 30, 2020 Assessment & Plan (1) DKA (diabetic ketoacidoses): Reason Critically Ill: Rigo Vazquez is a 35y/o male with past medical history significant for type 1 diabetes (poorly controlled), substance abuse, anxiety, depression, previous psychiatric hospitalizations; presented to the emergency department with complaints of hyperglycemia in the setting of Nausea, vomiting, dry mouth, feeling warm, frequent urination, increased thirst. Neuro: -CAM ICU negative -Neurochecks every 2 -For fluctuations with mental status given diabetic ketoacidosis -Urine toxicology positive for amphetamines Cardiac/Vascular: -No history of hypertension, hyperlipidemia, myocardial infarction -EKG demonstrated sinus tachycardia with PVCs, QTC 478 -Continue to monitor on telemetry Respiratory: -Tachypnea likely in the setting of ketoacidosis -No baseline history of respiratory disease -No O2 requirements -Continue to monitor on continuous pulse oximetry GI/Nutrition: -N.p.o. Renal/Lytes: -Acute kidney injury -Creatinine on admission 2.32 -Likely secondary to dehydration in the setting of DKA -Downtrending to 1.98 subsequently after admission -Continue to monitor : -No present concerns at this time -Monitor strict I's and O's ENDO: -Diabetic ketoacidosis -Admission BSG>1000, AG 39, beta hydroxybutyrate 34.88 -History of type 1 diabetes (poorly controlled) -Insulin drip started -Continue repletion with Normosol 200 mL/hr -BSG's q1H; BMP, Mag, Phos Q4h -VBG Q4h HEME: -H&H stable -Monitor daily ID: -Lactate 5.2, downtrending to 2.2 -History of skin graft to left anterior hip approximately 3 months ago -Granulation tissue over skin graft -Wound nurse consulted Lines/IV Access: -PIV x2 DVT Prophylaxis: -Heparin SQ (2) CHERYL (acute kidney injury): (3) Diabetes type 1, uncontrolled: (4) Benzodiazepine abuse: (5) Cannabis abuse: (6) Methamphetamine abuse: (7) Drug abuse: (8) Alcohol abuse: Supervising Physician Co-Signing Physician Notes Paulino Brown was the resident-physician during care of patient. I separately evaluated patient for aponte portions of the history and the exam. I was present during the critical portion of medical decision making, and I discussed the case with the resident. I generally agree with the findings and plan except for any additions/exceptions noted. Patient seen and examined at bedside. There is discrepancy when it comes to his insulin compliance. To 1 of the nurses he said that he is compliant to Dr. Paulino Brown he said he is noncompliant and to me he said that he is compliant. It seems the patient is noncompliant. He says that he has to take 25 units every 12 hours every day and he uses short acting based on what he eats. Patient complains of generalized malaise. Denies any fever or chills. No chest pain, no dizziness. No abdominal pain. EKG showed sinus tachycardia with hyperacute T waves. QTC of 479 Patient states that he takes Fide 15 which is like opioids up to 3 times a day for his lower back pain and lower leg pain. On asking who prescribes it to him he says the doctor at [facility] for his skin graft that he had on the lower back. He says that he took the last pill 3 days ago. He is asking for pain medication. I think there is a component of abuse here. His UDS was positive for amphetamine. It was positive for amphetamine even in July 2019. Currently I would just give him Tylenol as needed and maybe tramadol for severe pain. Continue with insulin drip until anion gap closes Decreasing blood glucose no more than 100 in an hour Replace potassium IV when potassium level between 3.3-5.3 BMP every 4 hours Continue with IV fluids Patient pH was less than 7.1, patient got total of 100 mEq of bicarb. We will repeat ABG later today. CHERYL is likely from prerenal component. Avoid nephrotoxic medication. I have personally spent 51 minutes of critical care time in the direct management of this patient. This is a life/limb threatening event. This includes time spent evaluating patient, direct bedside care, chart review, placing orders, interpretation of diagnostic studies, discussion with consultants, patient, and/or family members regarding treatment decisions, as well as other required patient management activities. This time is exclusive of all separately billable procedures, and teaching time and separate from and in addition to any other critical care service time. History of Present Illness Attending Physician: Tay Kendall History of Present Illness Rigo Vazquez is a 35y/o male with past medical history significant for type 1 diabetes (poorly controlled), substance abuse, anxiety, depression, previous psychiatric hospitalizations; presented to the emergency department with complaints of hyperglycemia in the setting of Nausea, vomiting, dry mouth, feeling warm, frequent urination, increased thirst. Found to be in diabetic ketoacidosis. On presentation to the emergency department patient had elevated WBC, estimated glucose greater than 1000, and anion gap of 39. ABG on presentation demonstrated pH of 7.05, CO2 of 13, HCO3 of 3; initial BMP demonstrated creatinine of 2.32, with a lactate of 5.2, and a beta hydroxybutyrate of 34.88. At that time urinalysis demonstrated 3+ glucose, 3+ ketones, given patient's history urine was also sent for urine toxicology. Allergies Allergy/AdvReac Type Severity Reaction Status Date / Time morphine Allergy Intermediate HIVES Verified 03/30/20 12:58 Home Medications Home Medications Medication Instructions Recorded Confirmed Type insulin aspart U-100 [Novolog See Rx Instructions .ROUTE 08/20/19 Rx Flexpen U-100 Insulin] .COMPLEX #15 ml sucralfate 10 ml PO ACHS #420 ml 08/20/19 Rx Patient History Medical History (Updated 03/30/20 @ 11:59 by Roberta Ford PA-C) Benzodiazepine abuse Cannabis abuse Depressed GI bleed Hyperglycemia Methamphetamine abuse No significant family history Superficial thrombophlebitis Surgical History No significant past surgical history Social History Smoking Status: Current every day smoker Cigarettes Per Day: 20; Second Hand Exposure: No; Do You Dip or Chew Tobacco: No; Tobacco Cessation Education Requested by Patient: No Hx Alcohol Use: Yes Alcohol type: hard liquor Hx Substance Use: Yes Last Used Substance: Unknown Substance Use Type Other:: history of ETOH withdrawl Preferred Language: Stateless Communication Ability: Effective Communication Ability Comment: mental status altered [employer] Supervisor Required: No Beliefs That Will Affect Care: None Current Living Situation: Family Other Information That Helps Us Care for You: No Feels Safe at Home: Yes Safety Concerns: Feels Safe At This Time Review of Systems Review of Systems: All systems reviewed & are unremarkable except as noted in HPI & below Physical Exam Constitutional: WD/WN, vitals as above Eyes: PERRL, conjunctivae normal, anicteric sclerae Neck: trachea midline, no thyromegaly Respiratory: normal respiratory effort, lungs clear to auscultation Cardiovascular: Rate/Rhythm: regular rhythm and + tachycardic Heart Sounds: no gallop, no murmur and no cardiac rub Vessels: normal peripheral pulses; no JVD Gastrointestinal (Abdomen): normal bowel sounds, soft, nontender, no hepatosplenomegaly Musculoskeletal: no cyanosis or clubbing, extremities motor strength 5/5 Skin: no rashes, warm and dry Neurologic: patellar DTR's 2+ bilat, sensation intact and PERRL, EOMI, accommodation nl, no face palsy, no dysarthria Psychiatric: Orientation: alert and oriented x 3 Lymphatic: no cervical lymphadenopathy Results & Data Results & Data ([facility]) Vital Signs (Past 12 Hours) Vital Signs Pulse Pulse Resp BP BP Pulse Ox 03/30/20 13:01 104 H 29 H 100 03/30/20 13:00 104 H 28 H 131/76 03/30/20 12:50 106 H 31 H 03/30/20 12:45 105 H 26 H 127/75 03/30/20 12:41 104 H 26 H 144/81 H 03/30/20 12:40 99 H 25 H 03/30/20 12:30 98 H 27 H 03/30/20 12:20 98 H 26 H 03/30/20 12:10 97 H 25 H 03/30/20 12:00 99 H 31 H 03/30/20 11:55 100 H 34 H 108/62 03/30/20 11:50 99 H 38 H 03/30/20 11:40 79 27 H 03/30/20 11:30 27 H 03/30/20 11:20 17 03/30/20 11:10 102 H 22 100 03/30/20 11:01 102 H 29 H 03/30/20 11:00 102 H 27 H 133/67 03/30/20 10:50 101 H 25 H 100 03/30/20 10:46 100 H 101 H 26 H 133/60 133/60 100 03/30/20 10:40 27 H 03/30/20 10:30 24 03/30/20 10:20 15 03/30/20 10:14 99 H 28 H 121/69 03/30/20 10:10 99 H 26 H 03/30/20 10:00 102 H 32 H 122/65 03/30/20 09:50 100 H 25 H 03/30/20 09:40 100 H 31 H 100 03/30/20 09:38 101 H 31 H 111/55 L 100 03/30/20 09:36 102 H 32 H 100 Laboratory Results 03/30/20 03/30/20 03/30/20 Range/Units 13:03 13:03 12:40 WBC (4.8-10.8) K/uL RBC (4.7-6.1) M/uL Hgb (14.0-18.0) g/dL Hct (42-52) % MCV (80-100) fL MCH (25-34) pg MCHC (32-36) g/dL Plt Count (130-400) K/uL Immature Gran % (Auto) % Neut % (Auto) % Lymph % (Auto) % Turner % (Auto) % Eos % (Auto) % Baso % (Auto) % Neut # (Auto) (1.4-6.5) K/uL Lymph # (Auto) (1.2-3.4) K/uL Turner # (Auto) (0.11-0.59) K/uL Eos # (Auto) (0-0.5) K/uL Baso # (Auto) (0-0.2) K/uL Immature Gran # (Auto) (0.00-0.02) K/uL Toxic Vacuolation ABG pH (7.35-7.45) ABG pCO2 (35-46) mmHg ABG pO2 (80-95) mmHg ABG HCO3 (19-24) mmol/L ABG O2 Saturation (90-95) % ABG Base Excess (-9-1.8) mEq/L Manohar Test (Pos) Barometric Pressure mm/Hg Oxygen Given Sodium Pending (136-145) mmol/L Potassium Pending (3.5-5.1) mmol/L Chloride Pending (98-107) mmol/L Carbon Dioxide Pending (21-32) mmol/L Anion Gap Pending (3-11) BUN Pending (7-18) mg/dl Creatinine Pending (0.6-1.4) mg/dl Est Cr Clr Drug Dosing Pending ml/min Est GFR ( Amer) Pending Est GFR (Non-Af Amer) Pending BUN/Creatinine Ratio Pending (10-20) Glucose 847 H* (70-99) mg/dl POC Glucose (70-99) mg/dl Lactate (0.4-2.0) mmol/L Calcium Pending (8.5-10.1) mg/dl Phosphorus Pending Magnesium Pending (1.8-2.4) mg/dl Total Bilirubin (0.2-1) mg/dl AST (15-37) U/L ALT (12-78) U/L Alkaline Phosphatase (45-117) U/L Troponin I (0-0.045) ng/ml Total Protein (6.4-8.2) gm/dl Albumin (3.4-5.0) gm/dl Globulin (2.5-4.0) gm/dl Albumin/Globulin Ratio (0.9-2) Beta-Hydroxybutyric Acd Pending (0.2-2.81) mg/dl TSH (0.300-4.500) uIu/ml Urine Color Urine Appearance (Clear) Urine pH (4.5-7.5) Ur Specific [place] (1.000-1.030) Urine Protein (Negative) Urine Glucose (UA) (Negative) Urine Ketones (Negative) Urine Blood (Negative) Urine Nitrite (Negative) Urine Bilirubin (Negative) Urine Urobilinogen (Negative) Ur Leukocyte Esterase (Negative) Urine WBC (Auto) (0-5) /hpf Urine RBC (Auto) (0-4) /hpf U Hyaline Cast (Auto) (0-5) /lpf U Epithel Cells (Auto) (0-5) /lpf Urine Bacteria (Auto) (Negative) Urine Opiates Screen Pending Ur Methadone, Qual Pending Urine Barbiturates Pending Ur Phencyclidine (PCP) Pending U Amphetamin/Meth Scrn Pending MDMA (Ecstasy) Screen Pending U Benzodiazepines Scrn Pending Ur Cocaine Metabolite Pending U Marijuana (THC) Screen Pending Ethyl Alcohol mg/dL < 3.0 (0-3) mg/dl COVID-19 Eval Order COVID-19 PCR (Negative) 03/30/20 03/30/20 03/30/20 Range/Units 12:40 11:58 11:58 WBC (4.8-10.8) K/uL RBC (4.7-6.1) M/uL Hgb (14.0-18.0) g/dL Hct (42-52) % MCV (80-100) fL MCH (25-34) pg MCHC (32-36) g/dL Plt Count (130-400) K/uL Immature Gran % (Auto) % Neut % (Auto) % Lymph % (Auto) % Turner % (Auto) % Eos % (Auto) % Baso % (Auto) % Neut # (Auto) (1.4-6.5) K/uL Lymph # (Auto) (1.2-3.4) K/uL Turner # (Auto) (0.11-0.59) K/uL Eos # (Auto) (0-0.5) K/uL Baso # (Auto) (0-0.2) K/uL Immature Gran # (Auto) (0.00-0.02) K/uL Toxic Vacuolation ABG pH 7.05 L* (7.35-7.45) ABG pCO2 13 L (35-46) mmHg ABG pO2 177 H (80-95) mmHg ABG HCO3 3 L (19-24) mmol/L ABG O2 Saturation 99.1 H (90-95) % ABG Base Excess -25.0 L (-9-1.8) mEq/L Manohar Test Pos (Pos) Barometric Pressure 738.2 mm/Hg Oxygen Given ROOM AIR Sodium (136-145) mmol/L Potassium (3.5-5.1) mmol/L Chloride (98-107) mmol/L Carbon Dioxide (21-32) mmol/L Anion Gap (3-11) BUN (7-18) mg/dl Creatinine (0.6-1.4) mg/dl Est Cr Clr Drug Dosing ml/min Est GFR ( Amer) Est GFR (Non-Af Amer) BUN/Creatinine Ratio (10-20) Glucose (70-99) mg/dl POC Glucose (70-99) mg/dl Lactate 5.2 H* (0.4-2.0) mmol/L Calcium (8.5-10.1) mg/dl Phosphorus Magnesium (1.8-2.4) mg/dl Total Bilirubin (0.2-1) mg/dl AST (15-37) U/L ALT (12-78) U/L Alkaline Phosphatase (45-117) U/L Troponin I (0-0.045) ng/ml Total Protein (6.4-8.2) gm/dl Albumin (3.4-5.0) gm/dl Globulin (2.5-4.0) gm/dl Albumin/Globulin Ratio (0.9-2) Beta-Hydroxybutyric Acd (0.2-2.81) mg/dl TSH (0.300-4.500) uIu/ml Urine Color Yellow Urine Appearance Clear (Clear) Urine pH 5.0 (4.5-7.5) Ur Specific [place] 1.026 (1.000-1.030) Urine Protein 1+ H (Negative) Urine Glucose (UA) 3+ H (Negative) Urine Ketones 3+ H (Negative) Urine Blood Negative (Negative) Urine Nitrite Negative (Negative) Urine Bilirubin Negative (Negative) Urine Urobilinogen Negative (Negative) Ur Leukocyte Esterase Negative (Negative) Urine WBC (Auto) 0 (0-5) /hpf Urine RBC (Auto) 0-4 (0-4) /hpf U Hyaline Cast (Auto) 1-5 (0-5) /lpf U Epithel Cells (Auto) 5-10 H (0-5) /lpf Urine Bacteria (Auto) Negative (Negative) Urine Opiates Screen Ur Methadone, Qual Urine Barbiturates Ur Phencyclidine (PCP) U Amphetamin/Meth Scrn MDMA (Ecstasy) Screen U Benzodiazepines Scrn Ur Cocaine Metabolite U Marijuana (THC) Screen Ethyl Alcohol mg/dL (0-3) mg/dl COVID-19 Eval Order COVID-19 PCR (Negative) 03/30/20 03/30/20 03/30/20 Range/Units 10:50 10:50 10:10 WBC (4.8-10.8) K/uL RBC (4.7-6.1) M/uL Hgb (14.0-18.0) g/dL Hct (42-52) % MCV (80-100) fL MCH (25-34) pg MCHC (32-36) g/dL Plt Count (130-400) K/uL Immature Gran % (Auto) % Neut % (Auto) % Lymph % (Auto) % Turner % (Auto) % Eos % (Auto) % Baso % (Auto) % Neut # (Auto) (1.4-6.5) K/uL Lymph # (Auto) (1.2-3.4) K/uL Turner # (Auto) (0.11-0.59) K/uL Eos # (Auto) (0-0.5) K/uL Baso # (Auto) (0-0.2) K/uL Immature Gran # (Auto) (0.00-0.02) K/uL Toxic Vacuolation ABG pH (7.35-7.45) ABG pCO2 (35-46) mmHg ABG pO2 (80-95) mmHg ABG HCO3 (19-24) mmol/L ABG O2 Saturation (90-95) % ABG Base Excess (-9-1.8) mEq/L Manohar Test (Pos) Barometric Pressure mm/Hg Oxygen Given Sodium 131 L (136-145) mmol/L Potassium 6.2 H* (3.5-5.1) mmol/L Chloride 90 L (98-107) mmol/L Carbon Dioxide < 5 L* (21-32) mmol/L Anion Gap 39.0 H (3-11) BUN 47 H (7-18) mg/dl Creatinine 2.32 H (0.6-1.4) mg/dl Est Cr Clr Drug Dosing 47.9 ml/min Est GFR ( Amer) 41.3 Est GFR (Non-Af Amer) 35.6 BUN/Creatinine Ratio 20.3 H (10-20) Glucose 1002 H* (70-99) mg/dl POC Glucose (70-99) mg/dl Lactate (0.4-2.0) mmol/L Calcium 9.5 (8.5-10.1) mg/dl Phosphorus Magnesium 3.1 H (1.8-2.4) mg/dl Total Bilirubin 0.5 (0.2-1) mg/dl AST 12 L (15-37) U/L ALT 16 (12-78) U/L Alkaline Phosphatase 106 (45-117) U/L Troponin I < 0.015 (0-0.045) ng/ml Total Protein 8.4 H (6.4-8.2) gm/dl Albumin 3.7 (3.4-5.0) gm/dl Globulin 4.7 H (2.5-4.0) gm/dl Albumin/Globulin Ratio 0.8 L (0.9-2) Beta-Hydroxybutyric Acd 34.88 H (0.2-2.81) mg/dl TSH 2.180 (0.300-4.500) uIu/ml Urine Color Urine Appearance (Clear) Urine pH (4.5-7.5) Ur Specific [place] (1.000-1.030) Urine Protein (Negative) Urine Glucose (UA) (Negative) Urine Ketones (Negative) Urine Blood (Negative) Urine Nitrite (Negative) Urine Bilirubin (Negative) Urine Urobilinogen (Negative) Ur Leukocyte Esterase (Negative) Urine WBC (Auto) (0-5) /hpf Urine RBC (Auto) (0-4) /hpf U Hyaline Cast (Auto) (0-5) /lpf U Epithel Cells (Auto) (0-5) /lpf Urine Bacteria (Auto) (Negative) Urine Opiates Screen Ur Methadone, Qual Urine Barbiturates Ur Phencyclidine (PCP) U Amphetamin/Meth Scrn MDMA (Ecstasy) Screen U Benzodiazepines Scrn Ur Cocaine Metabolite U Marijuana (THC) Screen Ethyl Alcohol mg/dL (0-3) mg/dl COVID-19 Eval Order Covid19 Done at [facility] COVID-19 PCR NEGATIVE (Negative) 03/30/20 03/30/20 Range/Units 10:10 09:37 WBC 38.75 H* (4.8-10.8) K/uL RBC 4.62 L (4.7-6.1) M/uL Hgb 13.0 L (14.0-18.0) g/dL Hct 40.3 L (42-52) % MCV 87.2 (80-100) fL MCH 28.1 (25-34) pg MCHC 32.3 (32-36) g/dL Plt Count 337 (130-400) K/uL Immature Gran % (Auto) 0.2 % Neut % (Auto) 92.3 % Lymph % (Auto) 4.6 % [place] % (Auto) 2.8 % Eos % (Auto) 0.1 % Baso % (Auto) 0.0 % Neut # (Auto) 35.77 H (1.4-6.5) K/uL Lymph # (Auto) 1.78 (1.2-3.4) K/uL Turner # (Auto) 1.07 H (0.11-0.59) K/uL Eos # (Auto) 0.03 (0-0.5) K/uL Baso # (Auto) 0.01 (0-0.2) K/uL Immature Gran # (Auto) 0.09 H (0.00-0.02) K/uL Toxic Vacuolation 1+ ABG pH (7.35-7.45) ABG pCO2 (35-46) mmHg ABG pO2 (80-95) mmHg ABG HCO3 (19-24) mmol/L ABG O2 Saturation (90-95) % ABG Base Excess (-9-1.8) mEq/L Manohar Test (Pos) Barometric Pressure mm/Hg Oxygen Given Sodium (136-145) mmol/L Potassium (3.5-5.1) mmol/L Chloride (98-107) mmol/L Carbon Dioxide (21-32) mmol/L Anion Gap (3-11) BUN (7-18) mg/dl Creatinine (0.6-1.4) mg/dl Est Cr Clr Drug Dosing ml/min Est GFR ( Amer) Est GFR (Non-Af Amer) BUN/Creatinine Ratio (10-20) Glucose (70-99) mg/dl POC Glucose > 600 H* (70-99) mg/dl Lactate (0.4-2.0) mmol/L Calcium (8.5-10.1) mg/dl Phosphorus Magnesium (1.8-2.4) mg/dl Total Bilirubin (0.2-1) mg/dl AST (15-37) U/L ALT (12-78) U/L Alkaline Phosphatase (45-117) U/L Troponin I (0-0.045) ng/ml Total Protein (6.4-8.2) gm/dl Albumin (3.4-5.0) gm/dl Globulin (2.5-4.0) gm/dl Albumin/Globulin Ratio (0.9-2) Beta-Hydroxybutyric Acd (0.2-2.81) mg/dl TSH (0.300-4.500) uIu/ml Urine Color Urine Appearance (Clear) Urine pH (4.5-7.5) Ur Specific [place] (1.000-1.030) Urine Protein (Negative) Urine Glucose (UA) (Negative) Urine Ketones (Negative) Urine Blood (Negative) Urine Nitrite (Negative) Urine Bilirubin (Negative) Urine Urobilinogen (Negative) Ur Leukocyte Esterase (Negative) Urine WBC (Auto) (0-5) /hpf Urine RBC (Auto) (0-4) /hpf U Hyaline Cast (Auto) (0-5) /lpf U Epithel Cells (Auto) (0-5) /lpf Urine Bacteria (Auto) (Negative) Urine Opiates Screen Ur Methadone, Qual Urine Barbiturates Ur Phencyclidine (PCP) U Amphetamin/Meth Scrn MDMA (Ecstasy) Screen U Benzodiazepines Scrn Ur Cocaine Metabolite U Marijuana (THC) Screen Ethyl Alcohol mg/dL (0-3) mg/dl COVID-19 Eval Order COVID-19 PCR (Negative) Medications Administered Current Inpatient Medications Acetaminophen (Acetaminophen 325 Mg Tab) 650 mg PO Q4H PRN PRN Reason: Moderate Pain Stop: 04/29/20 13:31 Dextrose (Dextrose 50% 50 Ml Syringe) 25 - 50 ml IV UD PRN; Protocol PRN Reason: Hypoglycemia Protocol Stop: 04/29/20 11:14 Glucagon (Glucagon For Inj 1 Mg Vial) 1 mg IM UD PRN; Protocol PRN Reason: Hypoglycemia Protocol Stop: 04/29/20 11:14 Glucose (Glucose 40% Gel 15 Gm Tube) 15 - 30 gm PO UD PRN; Protocol PRN Reason: Hypoglycemia Protocol Stop: 04/29/20 11:14 Glucose (Glucose 10 Tabs/Tube) 4 - 8 tabs PO UD PRN; Protocol PRN Reason: Hypoglycemia Protocol Stop: 04/29/20 11:14 Heparin Sodium (Porcine) (Heparin Sod 5,000 Unit/0.5 Ml Vial) 5,000 units SQ Q8 PEDRO Stop: 04/29/20 13:59 Insulin Human Regular 250 (units/ Sodium Chloride) 250 mls @ 9 mls/hr IV .Q24H PEDRO; Protocol Stop: 04/29/20 09:44 Last Titration: 03/30/20 13:45 Dose: 9 units/hr, 9 mls/hr Documented by: Parenteral Electrolytes (Normosol-R) 1,000 mls @ 200 mls/hr IV .Q5H PEDRO Stop: 04/29/20 13:31 Last Admin: 03/30/20 13:46 Dose: 200 mls/hr Documented by: Daptomycin 450 mg/ Syringe 9 mls @ 4.5 mls/min IV Q24H PEDRO; Protocol Stop: 04/02/20 11:59 Insulin Aspart (Insulin Aspart 100 Units/Ml 3 Ml Pen) 0 units SC ACHS PEDRO Stop: 04/29/20 11:29 Miscellaneous (Carbohydrates For Hypoglycemia ) 15 - 30 gm PO PRN PRN PRN Reason: Hypoglycemia Treatment Stop: 04/29/20 11:14 Miscellaneous Information (Daptomycin Consult Active) 1 ea N/A UD PRN PRN Reason: Consult Stop: 04/29/20 11:09 Last Admin: 03/30/20 11:53 Dose: 1 ea Documented by: Ondansetron HCl (Ondansetron Inj 2 Mg/Ml 2 Ml Vial) 4 mg IV Q4H PRN PRN Reason: Nausea And Vomiting Stop: 04/29/20 13:31 Resident Activity Tracking Resident Involvement: Resident Care Provided Care Provided: Adult Hospital Medicine (Critical Care)
[2020-03-30 14:28] LABS: Base Excess ABG -20.4 mEq/L (-9-1.8); HCO3 ABG 6 mmol/L (19-24); Oxygen Saturation ABG 98.4 % (90-95); PCO2 ABG 17 mmHg (35-46); PO2 ABG 133 mmHg (80-95)
[2020-03-30 14:33] LABS: Allen Test POS (Pos); pH ABG 7.17 (7.35-7.45)
[2020-03-30 14:34] LABS: BUN Creatinine Ratio 23.7 (10-20); Blood Urea Nitrogen 47 mg/dl (7-18); Calcium 8.8 mg/dl (8.5-10.1); Carbon Dioxide < 5 mmol/L (21-32); Chloride 101 mmol/L (98-107); Creatinine Clr Calc Pharmacy 56.1 ml/min; Est GFR (Non-African American) 43.1; Phosphorus 8.6 mg/dl (2.5-4.9); Potassium 5.3 mmol/L (3.5-5.1); Sodium 138 mmol/L (136-145)
[2020-03-30 14:37] LABS: Amphetamines+Metham, Urine Pos (Neg); Barbiturates, Urine Neg (Neg); Benzodiazepine, Urine Neg (Neg); Cocaine, Urine Neg (Neg); MDMA (Ecstacy), Urine Neg (Neg); Methadone, Urine Neg (Neg); Opiate, Urine Neg (Neg); Phencyclidine, Urine Neg (Neg)
[2020-03-30 14:42] LABS: Magnesium 3.3 mg/dl (1.8-2.4)
[2020-03-30] MEDS ORDERED: PHARMACY GLYCEMIC MGMT CONSULT PRN (15:03)
--- NOTE | 2020-03-30 15:38 | Pharmacy Report ---
Pharmacy Glycemic Short Note 2 - Date of Service March 30, 2020 - Glycemic Short BSG Results (Last 24 hours): 03/30/20 03/30/20 03/30/20 09:37 10:10 13:03 Glucose 1002 H* 847 H* POC Glucose > 600 H* 03/30/20 14:46 Glucose POC Glucose > 600 H* OUTPATIENT ANTIDIABETIC REGIMEN: * Unknown * A1c = 12.3% 07/2019 ASSESSMENT: * Type 1 diabetic admitted to ICU for severe DKA - possibly from medication non- compliance. * Initial labs: Glu 1002, AG 39, Bicarb < 5, pH 7.05, K 6.2, Na 131 (corrected Na ~147-149), calculated effective serum osmo 318 * Patient bolused with IV fluids, IV hydration continues, IV insulin drip started per DKA protocol and is infusing at 9units/hr at this time. BSG appears to be dropping ~50mg/dL/hr. Goal of drop ~50-75mg/dL/hr. * Maint IVFs changed to Normosol, preferable to NS given correct Na. K+ is trending down, 5.3 on last PRP. Patient is making urine. Might consider change of IVFs to 1/2 NS + 20mEq KCl on K less than 5 and if hemodynamically stable. * Recommend incorporating D5W into IVFs when BSG reaches 250. * Recommend reducing IV insulin infusion rate to 0.025-0.05unit/kg/hr when BSG reaches 250 if not already titrated down per adjustment calculator PLAN FOR INPATIENT GLYCEMIC CONTROL: * Check A1c (ordered w/ AM labs 03/31) * IV insulin infusion per DKA protocol, goal range 150-250. * When BSG falls to 250 or less, change change IVFs to D5 1/2 NS (with 20mEq KCl if K less than 5) * Novolog SQ to cover CHO consumed with meals if permitted - Carb ratio is calculated by insulin infusion rate adjustment calculator. PLAN FOR DISCHARGE: * To be determined
[2020-03-30] MEDS ORDERED: TRAMADOL HCL 50 MG TABLET PO PRN (15:47)
[2020-03-30] MEDS: HEPARIN SOD 5,000 UNIT/0.5 ML VIAL SQ SCH ×2 (15:51→22:14)
[2020-03-30 15:59] LABS: Glucose 718 mg/dl (70-99)
[2020-03-30] MEDS ORDERED: INSULIN ASPART 100 UNITS/ML 3 ML PEN SC SCH (16:30)
--- NOTE | 2020-03-30 17:24 | Billing Data ---
Date of Service March 30, 2020 Coding Level of Care Code Critical Care 1st 30-74 mins Time Spent (min) 51
--- NOTE | 2020-03-30 17:59 | Electrocardiogram Report ---
Test Reason : Blood Pressure : / mmHG Vent. Rate : 109 BPM Atrial Rate : 109 BPM P-R Int : 148 ms QRS Dur : 102 ms QT Int : 356 ms P-R-T Axes : 078 096 038 degrees QTc Int : 479 ms Sinus tachycardia with occasional Premature ventricular complexes Rightward axis Borderline ECG When compared with ECG of 09-MAR-2016 17:47, Premature ventricular complexes are now Present T wave amplitude has increased in Anterolateral leads Confirmed by Lefty Bacon ([id number]) on 03/30/2020 5:59:45 PM Referred By: Confirmed By:Manish Bacon
[2020-03-30 18:05] LABS: BUN Creatinine Ratio 22.8 (10-20); Calcium 9.5 mg/dl (8.5-10.1); Creatinine Clr Calc Pharmacy 59.1 ml/min; Est GFR (African American) 53.2; Est GFR (Non-African American) 45.9; Magnesium 2.9 mg/dl (1.8-2.4)
[2020-03-30] MEDS ORDERED: ONDANSETRON INJ 2 MG/ML 2 ML VIAL IV ONE (18:25)
[2020-03-30] MEDS ORDERED: ONDANSETRON INJ 2 MG/ML 2 ML VIAL ONE (18:26)
[2020-03-30] MEDS: INSULIN ASPART 100 UNITS/ML 3 ML PEN SC SCH ×3 (18:31→20:58)
[2020-03-30 18:40] LABS: Beta-Hydroxybutyrate 124.43 mg/dl (0.2-2.81)
[2020-03-30 19:32] LABS: Phosphorus 1.7 mg/dl (2.5-4.9); Potassium 4.5 mmol/L (3.5-5.1)
[2020-03-30] MEDS ORDERED: POTASSIUM CHLORIDE 40 MEQ in SODIUM CHLORIDE 0.45 % 1,000 ML IV SCH (20:00)
[2020-03-30 20:07] LABS: iSTAT Allen Test Pass; iSTAT Arterial Blood Gas HCO3 13 meg/L (19-24); iSTAT Arterial Blood Gas pCO2 28 mmHg (35-46); iSTAT Arterial Blood Gas pH 7.27 (7.35-7.45); iSTAT Arterial Blood Gas pO2 104 mmHg (80-95); iSTAT Carbon Dioxide 14 mmol/L (24-31); iSTAT Site L Radial
[2020-03-30] MEDS ORDERED: PENDING D5 1/2NS+40mEq KCL IVF SCH (22:00)
[2020-03-30 22:25] LABS: BUN Creatinine Ratio 23.1 (10-20); Calcium 9.1 mg/dl (8.5-10.1); Creatinine Clr Calc Pharmacy 62.8 ml/min; Est GFR (African American) 57.2; Est GFR (Non-African American) 49.4; Magnesium 2.6 mg/dl (1.8-2.4); Potassium 4.2 mmol/L (3.5-5.1)
[2020-03-30 22:29] LABS: Phosphorus 1.6 mg/dl (2.5-4.9)
[2020-03-30] MEDS ORDERED: POTASSIUM CHLORIDE 40 MEQ in D5W AND 1/2NSS 1,000 ML IV SCH (23:15)
[2020-03-31] MEDS: CEFEPIME 2,000 MG in SYRINGE 7.5 ML IV SCH ×3 (00:49→23:37)
[2020-03-31] MEDS ORDERED: ONDANSETRON INJ 2 MG/ML 2 ML VIAL ONE (01:50)
[2020-03-31 02:19] LABS: BUN Creatinine Ratio 24.4 (10-20); Calcium 8.7 mg/dl (8.5-10.1); Creatinine Clr Calc Pharmacy 73.1 ml/min; Est GFR (African American) 68.8; Est GFR (Non-African American) 59.3; Magnesium 2.4 mg/dl (1.8-2.4); Potassium 4.3 mmol/L (3.5-5.1)
[2020-03-31 02:22] LABS: Phosphorus 2.5 mg/dl (2.5-4.9)
[2020-03-31] MEDS ORDERED: ONDANSETRON INJ 2 MG/ML 2 ML VIAL IV STA (06:00)
[2020-03-31] MEDS: HEPARIN SOD 5,000 UNIT/0.5 ML VIAL SQ SCH ×3 (06:22→21:20)
[2020-03-31 06:44] LABS: Basophils # (auto) 0.01 K/uL (0-0.2); Hematocrit (blood only) 37.9 % (42-52); Hemoglobin 12.4 g/dL (14.0-18.0); Immature Granulocytes # (auto) 0.05 K/uL (0.00-0.02); Immature Granulocytes % (auto) 0.2 %; Lymphocytes # (auto) 1.39 K/uL (1.2-3.4); Lymphocytes % (auto) 6.4 %; Mean Corpuscular Hemoglobin 27.9 pg (25-34); Mean Corpuscular Hgb Conc 32.7 g/dL (32-36); Mean Corpuscular Volume 85.2 fL (80-100); Mean Platelet Volume 11.2 fL (7.4-10.4); Monocytes # (auto) 0.83 K/uL (0.11-0.59); Monocytes % (auto) 3.8 %; Neutrophils # (auto) 19.34 K/uL (1.4-6.5); Neutrophils % (auto) 89.6 %; Platelet Count 279 K/uL (130-400); RDW Standard Deviation 43.3 fL (36.4-46.3); Red Blood Count 4.45 M/uL (4.7-6.1); White Blood Count 21.62 K/uL (4.8-10.8)
[2020-03-31 06:49] LABS: Estimated Average Glucose 260 mg/dl; Hemoglobin A1C 10.7 % (4.5-5.6)
[2020-03-31 06:58] LABS: BUN Creatinine Ratio 23.9 (10-20); Creatinine Clr Calc Pharmacy 76.5 ml/min; Est GFR (Non-African American) 61.3; Magnesium 2.4 mg/dl (1.8-2.4); Potassium 4.6 mmol/L (3.5-5.1)
[2020-03-31] MEDS ORDERED: METOCLOPRAMIDE HCL INJ 5 MG/ML 2 ML VIAL IV ONE (07:51)
[2020-03-31] MEDS ORDERED: INSULIN HUMAN NPH SC ONE (08:00)
[2020-03-31] MEDS: INSULIN ASPART 100 UNITS/ML 3 ML PEN SC SCH ×7 (08:09→23:49)
[2020-03-31] MEDS ORDERED: POTASSIUM CHLORIDE 40 MEQ in D5W AND 1/2NSS 1,000 ML/1,000 ML BAG IV SCH (09:15)
[2020-03-31 10:11] LABS: Creatinine Clr Calc Pharmacy 84.5 ml/min; Est GFR (African American) 80.1; Est GFR (Non-African American) 69.1; Magnesium 2.3 mg/dl (1.8-2.4); Potassium 4.4 mmol/L (3.5-5.1)
[2020-03-31 10:15] LABS: Phosphorus 2.1 mg/dl (2.5-4.9)
--- NOTE | 2020-03-31 11:19 | Critical Care Progress Note ---
Date of Service March 31, 2020 Assessment & Plan (1) DKA (diabetic ketoacidoses): --High anion gap metabolic acidosis Secondary to DKA likely secondary to noncompliance, on top of lactic acidosis Continue with insulin drip until anion gap closes Decreasing blood glucose no more than 100 in an hour Replace potassium IV when potassium level between 3.3-5.3 BMP every 4 hours Continue with IV fluids HbA1c is 10.6 When patient initially came his blood gas pH was less than 7.1, he got 150 mEq of bicarb. -- CHERYL Likely prerenal from volume loss Improving Monitor BUN/creatinine Avoid nephrotoxic medications Strict ins and outs --Leukocytosis Likely secondary to DKA Patient has no clear source of infection Chest x-ray clean, urine clean. Lipase little bit elevated but does not meet the criteria for pancreatitis as no epigastric tenderness. Follow-up septic work-up --Hypernatremia Likely from water loss from DKA Continue with half NS for the time being If need be will change to free water --Active drug abuse UDS positive amphetamine --Prophylaxis VTE: Heparin GI: None Lines: Peripheral Diet: N.p.o. Plan: In/out: +1.3 L, urine output 4175 Patient's anion gap has closed. Will bridge to subcu insulin. Continue with insulin drip for 60-90 minutes after bridging. We will start diet if the patient is able to eat by mouth. If is not able to then continue with D5 half NS at 50 cc an hour. Patient complains of low back pain and asked for pain medications. He is getting Tylenol as needed. For severe pain I will give him tramadol. His QTC is 479. Patient has no clear source of sepsis is procalcitonin was little bit elevated but he also had CHERYL that is nonspecific. Chest x-ray was clean. Urine is clean. DC daptomycin. I will continue with cefepime today. If septic work-up is negative will discontinue it I have personally spent 35 minutes of critical care time in the direct management of this patient. This is a life/limb threatening event. This includes time spent evaluating patient, direct bedside care, chart review, placing orders, interpretation of diagnostic studies, discussion with consultants, patient, and family members, as well as other required patient management activities. This time is exclusive of all separately billable procedures, and teaching time and separate from and in addition to any other critical care service time. Please note the above document was generated using voice recognition software. It may contain grammatical, syntax or spelling errors. (2) CHERYL (acute kidney injury): (3) Diabetes type 1, uncontrolled: (4) Benzodiazepine abuse: (5) Cannabis abuse: (6) Methamphetamine abuse: (7) Drug abuse: (8) Alcohol abuse: Admission and Anticipated Discharge Date Admission Date: March 30, 2020 Subjective Patient seen and examined at bedside. No acute distress, no adverse events overnight. Patient's anion gap is closed. Patient denies any chest pain, no shortness of breath, no headache, no dizziness. He did have nausea after he drank diet soda. But denies any abdominal pain. Review of Systems Review of Systems: All systems reviewed & are unremarkable except as noted in Subjective Physical Exam Physical Exam: Constitutional: No acute distress HEENT: EOMI, PERRLA Respiratory system: Good air entry bilaterally, no wheeze, no rhonchi, no crackles CVS: S1-S2 positive, no murmurs or gallops Abdomen: Soft, nontender, nondistended, positive bowel sounds x4 Extremities: +2 pulses bilaterally radialis/ dorsalis pedis, no cyanosis, no edema, tattoos seen all over the body Neuro: Awake alert oriented x3 Psych: Normal mood and affect G/U: No Walls Skin: no rashes, warm and dry Lymphatic: no cervical or axillary lymphadenopathy Results & Data Results & Data ([facility]) Vital Signs (Past 12 Hours) Vital Signs Temp Pulse Pulse Resp BP BP Pulse Ox 03/31/20 07:30 95 H 15 97 03/31/20 07:00 95 H 17 120/70 98 03/31/20 06:30 94 H 17 97 03/31/20 06:00 95 H 94 H 17 155/90 H 155/90 H 97 03/31/20 05:30 91 H 16 98 03/31/20 05:00 92 H 92 H 14 124/77 124/77 98 03/31/20 04:30 90 16 96 03/31/20 04:00 36.9 C 90 91 H 19 119/64 119/64 95 03/31/20 03:30 90 15 95 03/31/20 03:00 91 H 91 H 16 113/66 113/66 96 03/31/20 02:30 95 H 19 97 03/31/20 02:00 93 H 93 H 17 116/60 116/60 96 03/31/20 01:30 95 H 20 94 03/31/20 01:00 94 H 94 H 18 122/64 122/64 95 03/31/20 00:30 96 H 20 98 03/31/20 00:00 97 H 98 H 17 108/65 108/65 98 03/30/20 23:30 99 H 18 100 Coding Level of Care Code Critical Care 1st 30-74 mins Diagnoses DKA (diabetic ketoacidoses) E11.10 CHERYL (acute kidney injury) N17.9 Diabetes type 1, uncontrolled E10.65 Benzodiazepine abuse F13.10 Cannabis abuse F12.10 Methamphetamine abuse F15.10 Drug abuse F19.10 Alcohol abuse F10.10 Time Spent (min) 35
[2020-03-31] MEDS ORDERED: DAPTOmycin 450 MG in SYRINGE 0 ML IV SCH (12:00)
[2020-03-31] MEDS: ONDANSETRON INJ 2 MG/ML 2 ML VIAL IV PRN ×2 (12:45→20:04)
[2020-03-31] MEDS ORDERED: CALCIUM CARBONATE 500 MG CHEWABLE TAB PO PRN (14:23)
[2020-03-31] MEDS ORDERED: PANTOprazole 40 MG in SYRINGE 0 ML IV ONE (14:45)
--- NOTE | 2020-03-31 14:55 | Hospitalist Progress Note ---
Date of Service March 31, 2020 Assessment & Plan (1) DKA (diabetic ketoacidoses): -Admit to ICU, Dr. Espinal consulted -Started on insulin drip, DKA protocol ordered -Patient has already received 3L NSS in the ER, continue maintenance fluids, add potassium if hypokalemic after recheck BMP, was 6.2 on admission. - Better today. Off drip. (2) Diabetes type 1, uncontrolled: -DKA as above (3) CHERYL (acute kidney injury): -BUN elevated at 47, creatinine 2.32, trending with BMP, IV fluids as above (4) Depressed: - Unknown if pt follows with outpt psychiatry or counselor, address once pt less confused. Attempted to call family however did not answer. (5) Alcohol abuse: -History of such, encourage cessation (6) Methamphetamine abuse: (7) Cannabis abuse: (8) Benzodiazepine abuse: -Will check urine tox screen with history of methamphetamine, cannabis, benzodiazepine abuse. It is noted that he also chooses to use IV crystal meth in the past. Denies history of HIV, hep B or hep C. (9) DVT prophylaxis: - teds, heparin subcu CODE: Full code Admission and Anticipated Discharge Date Admission Date: March 30, 2020 Subjective Tired today. Opened his eyes, but didn't say much to me. Review of Systems Review of Systems: Unobtainable due to cognitive status Physical Exam Constitutional: WD/WN, vitals as above Eyes: EOM intact bilaterally; no conjunctival abnormality ENMT: external ear and nose normal, oropharynx normal Neck: trachea midline, no thyromegaly normal visual inspection Respiratory: normal respiratory effort, lungs clear to auscultation no respiratory distress Cardiovascular: RRR, no murmur, no edema Gastrointestinal (Abdomen): Inspection/Auscultation: abdomen normal to inspection; abdomen not distended Musculoskeletal: no cyanosis or clubbing, extremities motor strength 5/5 Skin: no rashes, warm and dry Neurologic: moves all extremities and awake Psychiatric: Orientation: alert, oriented to person and cooperative Results & Data Results & Data ([facility]) Vital Signs (Past 12 Hours) Vital Signs Temp Pulse Pulse Resp BP BP Pulse Ox 03/31/20 13:30 93 H 24 97 03/31/20 13:00 100 H 21 146/76 H 98 03/31/20 12:40 108 H 18 157/82 H 100 03/31/20 12:30 92 H 20 98 03/31/20 12:00 37 C 91 H 18 98 03/31/20 11:30 92 H 19 99 03/31/20 11:00 94 H 14 100 03/31/20 10:30 94 H 18 97 03/31/20 10:00 94 H 7 L 130/63 98 03/31/20 09:30 94 H 20 97 03/31/20 09:00 94 H 16 138/84 100 03/31/20 08:30 90 14 98 03/31/20 08:12 97 H 19 145/78 H 98 03/31/20 08:00 37.1 C 90 18 148/85 H 97 03/31/20 07:30 95 H 15 97 03/31/20 07:00 95 H 17 120/70 98 03/31/20 06:30 94 H 17 97 03/31/20 06:00 95 H 94 H 17 155/90 H 155/90 H 97 03/31/20 05:30 91 H 16 98 03/31/20 05:00 92 H 92 H 14 124/77 124/77 98 03/31/20 04:30 90 16 96 03/31/20 04:00 36.9 C 90 91 H 19 119/64 119/64 95 03/31/20 03:30 90 15 95 03/31/20 03:00 91 H 91 H 16 113/66 113/66 96 PG Care Time/CCT Total # of Minutes Spent Total Time Spent with Patient: Total time spent is greater than 50% in coordination of care (as documented) at patient's floor/unit and/or counseling patient: Coding Level of Care Code 26679 Subseq Hosp Care Lvl 3 Diagnoses DKA (diabetic ketoacidoses) E11.10 Diabetes type 1, uncontrolled E10.65 CHERYL (acute kidney injury) N17.9 Depressed F32.9 Alcohol abuse F10.10 Methamphetamine abuse F15.10 Cannabis abuse F12.10 Benzodiazepine abuse F13.10 DVT prophylaxis Z29.9
[2020-03-31] MEDS: INSULIN REGULAR 250 UNITS in SODIUM CHLORIDE 0.9% 247.5 ML IV SCH (15:07)
[2020-03-31] MEDS ORDERED: Nursing to Pharmacy Communication SCH (15:15)
[2020-03-31] MEDS ORDERED: D5W AND 1/2NSS 1,000 ML IV SCH (15:15)
[2020-03-31] MEDS ORDERED: ACETAMINOPHEN 1000 MG/100 ML IV IV ONE (16:30)
[2020-03-31] MEDS: INSULIN HUMAN NPH SC SCH (17:01)
[2020-03-31] MEDS ORDERED: ACETAMINOPHEN 1,000 MG/100 ML VIAL IV PRN (20:15)
[2020-04-01] MEDS: INSULIN ASPART 100 UNITS/ML 3 ML PEN SC SCH ×5 (04:13→20:29)
[2020-04-01] MEDS: ONDANSETRON INJ 2 MG/ML 2 ML VIAL IV PRN ×2 (04:19→07:48)
[2020-04-01] MEDS: HEPARIN SOD 5,000 UNIT/0.5 ML VIAL SQ SCH ×3 (04:33→20:29)
[2020-04-01 07:55] LABS: Eosinophils # (auto) 0.01 K/uL (0-0.5); Eosinophils % (auto) 0.1 %; Hematocrit (blood only) 33.7 % (42-52); Hemoglobin 11.3 g/dL (14.0-18.0); Immature Granulocytes # (auto) 0.03 K/uL (0.00-0.02); Immature Granulocytes % (auto) 0.3 %; Lymphocytes # (auto) 1.69 K/uL (1.2-3.4); Lymphocytes % (auto) 15.4 %; Mean Corpuscular Hemoglobin 28.8 pg (25-34); Mean Corpuscular Hgb Conc 33.5 g/dL (32-36); Mean Corpuscular Volume 85.8 fL (80-100); Mean Platelet Volume 10.4 fL (7.4-10.4); Monocytes # (auto) 0.49 K/uL (0.11-0.59); Monocytes % (auto) 4.5 %; Neutrophils # (auto) 8.78 K/uL (1.4-6.5); Neutrophils % (auto) 79.7 %; Platelet Count 182 K/uL (130-400); RDW Coefficient of Variation 13.8 % (11.5-14.5); RDW Standard Deviation 43.3 fL (36.4-46.3); Red Blood Count 3.93 M/uL (4.7-6.1)
[2020-04-01] MEDS: PANTOprazole 40 MG TAB PO SCH (08:09)
[2020-04-01] MEDS: INSULIN HUMAN NPH SC SCH ×2 (08:10→17:03)
[2020-04-01 08:33] LABS: BUN Creatinine Ratio 14.8 (10-20); Calcium 9.3 mg/dl (8.5-10.1); Creatinine Clr Calc Pharmacy 121.8 ml/min; Est GFR (African American) 124.6; Est GFR (Non-African American) 107.5; Phosphorus 1.5 mg/dl (2.5-4.9); Potassium 3.7 mmol/L (3.5-5.1)
[2020-04-01] MEDS ORDERED: POTASSIUM PHOS 3 MMOL/1 ML INFUSION IV STA (08:44)
[2020-04-01] MEDS ORDERED: POTASSIUM PHOSPHATE 30 MMOL in SODIUM CHLORIDE 0.9% 500 ML IV ONE (09:15)
--- NOTE | 2020-04-01 10:11 | Critical Care Progress Note ---
Date of Service April 01, 2020 Assessment & Plan (1) DKA (diabetic ketoacidoses): --Status post high anion gap metabolic acidosis Secondary to DKA likely secondary to noncompliance, on top of lactic acidosis Status post insulin drip currently on subcu insulin HbA1c is 10.6 Patient tolerating p.o. diet --Status post CHERYL Likely prerenal from volume loss Improving Monitor BUN/creatinine Avoid nephrotoxic medications Strict ins and outs --Status post leukocytosis Likely secondary to DKA Patient has no clear source of infection Chest x-ray clean, urine clean. Lipase little bit elevated but does not meet the criteria for pancreatitis as no epigastric tenderness. Septic work-up negative to date --Active drug abuse UDS positive amphetamine --Prophylaxis VTE: Heparin GI: Protonix Lines: Peripheral Diet: N.p.o. Plan: In/out: Positive for 91, urine output 1430 Patient doing much better. Blood sugars are controlled on subcutaneous insulin with correction insulin. Patient is complaining of mild nausea which is controlled with antiemetics. He is tolerating diet. WBC has come back to normal. There is no clear source of infection. I will discontinue antibiotics today. Patient is hemodynamically stable to be downgraded to medical floor Please note the above document was generated using voice recognition software. It may contain grammatical, syntax or spelling errors. (2) CHERYL (acute kidney injury): (3) Diabetes type 1, uncontrolled: (4) Benzodiazepine abuse: (5) Cannabis abuse: (6) Methamphetamine abuse: (7) Drug abuse: (8) Alcohol abuse: Admission and Anticipated Discharge Date Admission Date: March 30, 2020 Subjective Patient seen and examined at bedside. No acute distress, no adverse events overnight. Patient is tolerating diet. He still complaining a little bit of nausea not throwing up. Is getting a PRN antiemetic. No abdominal pain, no headache, no dizziness. Overall feeling much better. Review of Systems Review of Systems: All systems reviewed & are unremarkable except as noted in Subjective Physical Exam Physical Exam: Constitutional: No acute distress HEENT: EOMI, PERRLA Respiratory system: Good air entry bilaterally, no wheeze, no rhonchi, no crackles CVS: S1-S2 positive, no murmurs or gallops Abdomen: Soft, nontender, nondistended, positive bowel sounds x4 Extremities: +2 pulses bilaterally radialis/ dorsalis pedis, no cyanosis, no edema, tattoos seen all over the body Neuro: Awake alert oriented x3 Psych: Normal mood and affect G/U: No Walls Skin: no rashes, warm and dry Lymphatic: no cervical or axillary lymphadenopathy Results & Data Results & Data ([facility]) Vital Signs (Past 12 Hours) Vital Signs Temp Pulse Resp BP Pulse Ox 04/01/20 08:00 87 04/01/20 04:09 37.1 C 87 15 176/100 H 98 04/01/20 02:30 79 21 04/01/20 01:30 79 23 04/01/20 00:00 78 03/31/20 23:39 37.5 C 85 21 151/81 H 98 04/01/20 07:35 04/01/20 07:35 Coding Level of Care Code 80678 Subseq Hosp Care Lvl 3 Diagnoses DKA (diabetic ketoacidoses) E11.10 CHERYL (acute kidney injury) N17.9 Diabetes type 1, uncontrolled E10.65 Benzodiazepine abuse F13.10 Cannabis abuse F12.10 Methamphetamine abuse F15.10 Drug abuse F19.10 Alcohol abuse F10.10
--- NOTE | 2020-04-01 14:27 | Hospitalist Progress Note ---
Date of Service April 01, 2020 Assessment & Plan (1) DKA (diabetic ketoacidoses): Started on insulin drip, DKA protocol ordered. Off IV insulin by 03/31. - Now on NPH and sliding scale per diabetic pharmacist (2) Diabetes type 1, uncontrolled: - DKA as above (3) Leukocytosis: Likely reactive from DKA. No indication of current infection. - Monitor (4) Necrotizing fasciitis: Recent admission at [facility] for necrotizing fascitis of the left hip/back area. - Skin grafts look clean overall, with only a 1.5" area of irritation from his jeans sliding. - software quality assurance engineer consulted (5) CHERYL (acute kidney injury): BUN elevated at 47, creatinine 2.32 on admission. - Back to baseline Cr of 0.9 on 04/01 (6) Depressed: Unknown if pt follows with outpatient psychiatry or counselor. Encourage to do so. (7) Alcohol abuse: History of such. - Encourage cessation (8) Methamphetamine abuse: Tox positive for methamphetamine. - Guest Experience Representative cessation. (9) Cannabis abuse: - Guest Experience Representative cessation (10) DVT prophylaxis: Heparin 5000 units Q8h Admission and Anticipated Discharge Date Admission Date: March 30, 2020 Subjective Pain the left hip area. Still with nausea and vomting. Reports no fevers/chills, chest pain, shortness of breath, abdominal pain. Physical Exam Constitutional: WD/WN, vitals as above Eyes: EOM intact bilaterally; no conjunctival abnormality ENMT: external ear and nose normal, oropharynx normal Neck: trachea midline, no thyromegaly normal visual inspection Respiratory: normal respiratory effort, lungs clear to auscultation no respiratory distress Cardiovascular: RRR, no murmur, no edema Gastrointestinal (Abdomen): Inspection/Auscultation: abdomen normal to inspection; abdomen not distended Musculoskeletal: no cyanosis or clubbing, extremities motor strength 5/5 Skin: + skin hypertrophy (Left hip area with scarring. Small area of redness.) Neurologic: moves all extremities and awake Psychiatric: Orientation: alert, oriented to person and cooperative Results & Data Results & Data ([facility]) Vital Signs (Past 12 Hours) Vital Signs Temp Pulse Pulse Resp BP BP Pulse Ox 04/01/20 12:00 37.2 C 78 13 04/01/20 11:00 37.2 C 78 78 19 96 04/01/20 10:00 74 23 04/01/20 09:00 37.1 C 83 20 04/01/20 08:00 37.1 C 96 H 84 14 141/84 H 96 04/01/20 07:16 89 13 141/84 H 04/01/20 07:00 78 20 04/01/20 06:00 79 20 04/01/20 05:00 74 19 04/01/20 04:09 37.1 C 87 15 176/100 H 98 04/01/20 02:30 79 21 PG Care Time/CCT Total # of Minutes Spent Total Time Spent with Patient: Total time spent is greater than 50% in coordination of care (as documented) at patient's floor/unit and/or counseling patient: Coding Level of Care Code 03957 Subseq Hosp Care Lvl 3 Diagnoses DKA (diabetic ketoacidoses) E11.10 Diabetes type 1, uncontrolled E10.65 Leukocytosis D72.829 Necrotizing fasciitis M72.6 CHERYL (acute kidney injury) N17.9 Depressed F32.9 Alcohol abuse F10.10 Methamphetamine abuse F15.10 Cannabis abuse F12.10 DVT prophylaxis Z29.9
--- NOTE | 2020-04-01 14:41 | Pharmacy Report ---
Pharmacy Glycemic Short Note 2 - Date of Service April 01, 2020 - Glycemic Short BSG Results (Last 24 hours): 03/31/20 03/31/20 03/31/20 15:53 19:58 23:41 Glucose POC Glucose 135 H 225 H 194 H 04/01/20 04/01/20 04/01/20 04:06 07:18 07:35 Glucose 197 H POC Glucose 171 H 194 H 04/01/20 10:59 Glucose POC Glucose 190 H OUTPATIENT ANTIDIABETIC REGIMEN: * Unknown - patient unable to confirm regimen * A1c = 10.7% (03/31/20) ASSESSMENT: 04/01: * Patient transitioned off IV insulin infusion yesterday. I elected to utilize NPH + Novolog per this is what the patient was on during a previous admission in August. Patient was unable to confirm what type of insulin he currently uses or insulin doses. He also could not tell me his PCP. * BSGs have been acceptable but above goal over the past 24 hours on 35 units of NPH + 7 units of Novolog * I will increase NPH to 25 units BID and tighten carb coverage. 03/30: * Type 1 diabetic admitted to ICU for severe DKA - possibly from medication non- compliance. * Initial labs: Glu 1002, AG 39, Bicarb < 5, pH 7.05, K 6.2, Na 131 (corrected Na ~147-149), calculated effective serum osmo 318 * Patient bolused with IV fluids, IV hydration continues, IV insulin drip started per DKA protocol and is infusing at 9units/hr at this time. BSG appears to be dropping ~50mg/dL/hr. Goal of drop ~50-75mg/dL/hr. * Maint IVFs changed to Normosol, preferable to NS given correct Na. K+ is trending down, 5.3 on last PRP. Patient is making urine. Might consider change of IVFs to 1/2 NS + 20mEq KCl on K less than 5 and if hemodynamically stable. * Recommend incorporating D5W into IVFs when BSG reaches 250. * Recommend reducing IV insulin infusion rate to 0.025-0.05unit/kg/hr when BSG reaches 250 if not already titrated down per adjustment calculator PLAN FOR INPATIENT GLYCEMIC CONTROL: * Basal insulin * NPH 25 units SQ BID with meals * Bolus insulin * Novolog ACHS * Correction factor: 30 * Carb ratio: 1 unit for every 9 grams CHO PLAN FOR DISCHARGE: * To be determined
[2020-04-01] MEDS ORDERED: TRAMADOL HCL 50 MG TABLET PO PRN (15:22)
[2020-04-01] MEDS ORDERED: KETOROLAC TROMETHAMINE 15 MG/ML VIAL IV ONE (20:35)
[2020-04-01] MEDS: ALUMINUM/MAGNESIUM SUSP 30 ML UDC PO PRN (20:56)
[2020-04-02] MEDS: HEPARIN SOD 5,000 UNIT/0.5 ML VIAL SQ SCH ×2 (04:08→13:55)
[2020-04-02] MEDS: PANTOprazole 40 MG TAB PO SCH (07:53)
[2020-04-02] MEDS: ALUMINUM/MAGNESIUM SUSP 30 ML UDC PO PRN (07:56)
[2020-04-02] MEDS: INSULIN ASPART 100 UNITS/ML 3 ML PEN SC SCH ×3 (08:05→17:13)
[2020-04-02 08:25] LABS: BUN Creatinine Ratio 18.5 (10-20); Calcium 9.1 mg/dl (8.5-10.1); Creatinine Clr Calc Pharmacy 176.9 ml/min; Est GFR (African American) 149.1; Est GFR (Non-African American) 128.6; Potassium 3.5 mmol/L (3.5-5.1)
[2020-04-02 08:27] LABS: Phosphorus 2.4 mg/dl (2.5-4.9)
[2020-04-02] MEDS ORDERED: AMLODIPINE BESYLATE 5 MG TAB PO SCH (09:00)
--- NOTE | 2020-04-02 09:06 | Pharmacy Report ---
Pharmacy Glycemic Short Note 2 - Date of Service April 02, 2020 - Glycemic Short BSG Results (Last 24 hours): 04/01/20 04/01/20 04/01/20 10:59 17:01 20:11 Glucose POC Glucose 190 H 130 H 180 H 04/02/20 04/02/20 04/02/20 07:38 07:49 07:50 Glucose 64 L POC Glucose 66 L* 69 L* 04/02/20 08:05 Glucose POC Glucose 82 OUTPATIENT ANTIDIABETIC REGIMEN: * Unknown - patient unable to confirm regimen * A1c = 10.7% (03/31/20) ASSESSMENT: 04/02: * BSGs reasonably well-controlled yesterday (194, 197, 130, and 180 mg/dL) * Patient received 45 units of NPH and 13 units of prandial/correctional insulin (58 units total) * Minor hypoglycemic episode this morning of 66 mg/dL (patient asymptomatic) * Based on early childhood special educator note - will attempt transition from NPH to Lantus today, as patient would prefer Lantus/Novolog regimen * Patient will require outpatient follow-up post discharge for further dose titration and for follow-up prescriptions 04/01: * Patient transitioned off IV insulin infusion yesterday. I elected to utilize NPH + Novolog per this is what the patient was on during a previous admission in August. Patient was unable to confirm what type of insulin he currently uses or insulin doses. He also could not tell me his PCP. * BSGs have been acceptable but above goal over the past 24 hours on 35 units of NPH + 7 units of Novolog * I will increase NPH to 25 units BID and tighten carb coverage. 03/30: * Type 1 diabetic admitted to ICU for severe DKA - possibly from medication non- compliance. * Initial labs: Glu 1002, AG 39, Bicarb < 5, pH 7.05, K 6.2, Na 131 (corrected Na ~147-149), calculated effective serum osmo 318 * Patient bolused with IV fluids, IV hydration continues, IV insulin drip started per DKA protocol and is infusing at 9units/hr at this time. BSG appears to be dropping ~50mg/dL/hr. Goal of drop ~50-75mg/dL/hr. * Maint IVFs changed to Normosol, preferable to NS given correct Na. K+ is trending down, 5.3 on last PRP. Patient is making urine. Might consider change of IVFs to 1/2 NS + 20mEq KCl on K less than 5 and if hemodynamically stable. * Recommend incorporating D5W into IVFs when BSG reaches 250. * Recommend reducing IV insulin infusion rate to 0.025-0.05unit/kg/hr when BSG reaches 250 if not already titrated down per adjustment calculator PLAN FOR INPATIENT GLYCEMIC CONTROL: * Basal insulin - change from NPH to Lantus * Lantus 25 units SC qAM * Lantus scale HS (0-10 units - see EHR for details) * Bolus insulin - continue * Novolog ACHS * Correction factor: 30 mg/dL/unit * Carb ratio: 1 unit for every 9 grams CHO PLAN FOR DISCHARGE: * HbA1c of 10.7% demonstrates poor outpatient glycemic management * Reasonable goal for this patient would be HbA1c less than 7% * Per early childhood special educator note, patient reported withholding insulin prior to admission due to not feeling well * Difficult to account for sick days/skipping meals with 70/30 premixed insulin * Patient would prefer Lantus and Novolog, but was using 70/30 due to OTC option and since he has no PCP at this time to write prescriptions * Consider change to Lantus and Novolog - doses TBD * Patient will require prompt outpatient follow-up with new PCP or diabetes provider for further dose titration and disease management
[2020-04-02] MEDS ORDERED: INSULIN GLARGINE SOLOSTAR 100 UNITS/ML 3 ML PEN SC SCH ×2 (09:15→21:00)
[2020-04-02 09:20] LABS: Eosinophils # (auto) 0.03 K/uL (0-0.5); Eosinophils % (auto) 0.6 %; Hematocrit (blood only) 36.7 % (42-52); Hemoglobin 12.3 g/dL (14.0-18.0); Immature Granulocytes # (auto) 0.01 K/uL (0.00-0.02); Immature Granulocytes % (auto) 0.2 %; Lymphocytes # (auto) 1.62 K/uL (1.2-3.4); Lymphocytes % (auto) 34.1 %; Mean Corpuscular Hemoglobin 28.8 pg (25-34); Mean Corpuscular Hgb Conc 33.5 g/dL (32-36); Mean Corpuscular Volume 85.9 fL (80-100); Monocytes # (auto) 0.32 K/uL (0.11-0.59); Monocytes % (auto) 6.7 %; Neutrophils # (auto) 2.77 K/uL (1.4-6.5); Neutrophils % (auto) 58.4 %; Platelet Count 177 K/uL (130-400); RDW Coefficient of Variation 13.4 % (11.5-14.5); RDW Standard Deviation 41.9 fL (36.4-46.3); Red Blood Count 4.27 M/uL (4.7-6.1); White Blood Count 4.75 K/uL (4.8-10.8)
[2020-04-02 13:21] LABS: Amphetamine Urine, Confirm 357 ng/mL (<250); Methamphetamine, Ur Confirm 1030 ng/mL (<250)
--- NOTE | 2020-04-02 14:15 | Hospitalist Progress Note ---
Date of Service April 02, 2020 Assessment & Plan (1) DKA (diabetic ketoacidoses): Started on insulin drip, DKA protocol ordered. Off IV insulin by 03/31. - Now switching to basal-bolus with generally improved sugars. Will work with pharmacy. (2) Diabetes type 1, uncontrolled: - DKA as above (3) Leukocytosis: Likely reactive from DKA. No indication of current infection. - Monitor (4) Necrotizing fasciitis: Recent admission at [facility] for necrotizing fascitis of the left hip/back area. - Skin grafts look clean overall, with only a 1.5" area of irritation from his jeans sliding. - mechanical designer consulted -> Will prescribe medical coverings. (5) CHERYL (acute kidney injury): BUN elevated at 47, creatinine 2.32 on admission. - Back to baseline Cr of 0.9 on 04/01 (6) Depressed: Unknown if pt follows with outpatient psychiatry or counselor. Encourage to do so. (7) Alcohol abuse: History of such. - Encourage cessation (8) Methamphetamine abuse: Tox positive for methamphetamine. - Curtain Hemmer Automatic cessation. (9) Cannabis abuse: - Curtain Hemmer Automatic cessation (10) DVT prophylaxis: Heparin 5000 units Q8h Admission and Anticipated Discharge Date Admission Date: March 30, 2020 Subjective Doing well today. Less nausea, no emesis. Pain is controlled with the bandages that we use. Physical Exam Constitutional: WD/WN, vitals as above Eyes: EOM intact bilaterally; no conjunctival abnormality ENMT: external ear and nose normal, oropharynx normal Neck: trachea midline, no thyromegaly normal visual inspection Respiratory: normal respiratory effort, lungs clear to auscultation no respiratory distress Cardiovascular: RRR, no murmur, no edema Gastrointestinal (Abdomen): Inspection/Auscultation: abdomen normal to inspection; abdomen not distended Musculoskeletal: no cyanosis or clubbing, extremities motor strength 5/5 Skin: no rashes, warm and dry + skin hypertrophy (Left hip area with scarring. Small area of redness.) Neurologic: moves all extremities and awake Psychiatric: Orientation: alert, oriented to person and cooperative Results & Data Results & Data ([facility]) Vital Signs (Past 12 Hours) Vital Signs Temp Pulse Resp BP Pulse Ox 04/02/20 07:14 36.8 C 79 18 154/91 H 99 04/02/20 07:00 36.4 C L 69 18 109/72 99 PG Care Time/CCT Total # of Minutes Spent Total Time Spent with Patient: Total time spent is greater than 50% in coordination of care (as documented) at patient's floor/unit and/or counseling patient: Coding Level of Care Code 97841 Subseq Hosp Care Lvl 2 Diagnoses DKA (diabetic ketoacidoses) E11.10 Diabetes type 1, uncontrolled E10.65 Leukocytosis D72.829 Necrotizing fasciitis M72.6 CHERYL (acute kidney injury) N17.9 Depressed F32.9 Alcohol abuse F10.10 Methamphetamine abuse F15.10 Cannabis abuse F12.10 DVT prophylaxis Z29.9
--- NOTE | 2020-04-02 18:10 | Discharge Summary ---
Date of Service April 02, 2020 Admission HPI Per Admitting Provider This is a 35-year-old male with past medical history of DM type I, substance abuse, prior psychiatric hospitalizations, anxiety, depression who presents for episode of DKA. Patient is found to have elevated WBC = 38.75, glucose is greater than 1000, anion gap = 39. He is confused during my examination. Cannot give me exact timeframe of when he last took insulin but told nursing staff earlier that he ran out of this a few days ago. He denies any recent drug use, smokes occasional cigarettes, marijuana, does not vape. He admits to drinking alcohol daily but cannot remember when last had a drink. He did not recall vomiting however has black emesis on his lips and in his mouth. Patient has been started on an insulin drip, finished 2 L NSS and has another 1L to start after second IV site obtained. Pt has been pancultured. IV antibiotics including cefepime and daptomycin have been started empirically. Principal Diagnosis DKA Discharge Exam Constitutional WD/WN, vitals as above Eyes EOM intact bilaterally; no conjunctival abnormality ENMT external ear and nose normal, oropharynx normal Neck trachea midline, no thyromegaly normal visual inspection Respiratory normal respiratory effort, lungs clear to auscultation no respiratory distress Cardiovascular RRR, no murmur, no edema Gastrointestinal (Abdomen) Inspection/Auscultation: abdomen normal to inspection; abdomen not distended Musculoskeletal no cyanosis or clubbing, extremities motor strength 5/5 Skin no rashes, warm and dry + skin hypertrophy (Left hip area with scarring. Small area of redness.) Neurologic moves all extremities and awake Psychiatric Orientation: alert, oriented to person and cooperative Discharge Data Allergies Allergy/AdvReac Type Severity Reaction Status Date / Time morphine Allergy Intermediate HIVES Verified 03/30/20 12:58 Consultations 03/30/20 13:32 Consult Case Management - Discharge Planning Routine Consult Supervisor Personnel Clerks Routine Diabetes Follow up Diabetes Follow-up Needed for HgbA1c >9% Hospital Course (1) DKA (diabetic ketoacidoses): Started on insulin drip, DKA protocol ordered. Off IV insulin by 03/31. - Now switching to basal-bolus with generally improved sugars. Will work with pharmacy. - On 04/02, he had his ride come and wanted to go home. This was despite agreeing to stay the night to work on a better transition to his new basal-bolus insulin regimen. I discussed with the glycemic pharmacist who gave our best recommendations. The meds, supplies, and other chronic meds were all sent to the pharmacy. He was encouraged to follow up with our endocrinology team. (2) Diabetes type 1, uncontrolled: - DKA as above (3) Leukocytosis: Likely reactive from DKA. No indication of current infection. - Monitor (4) Necrotizing fasciitis: Recent admission at [facility] for necrotizing fascitis of the left hip/back area. - Skin grafts look clean overall, with only a 1.5" area of irritation from his jeans sliding. - spice cleaner consulted -> Will prescribe medical coverings. (5) CHERYL (acute kidney injury): BUN elevated at 47, creatinine 2.32 on admission. - Back to baseline Cr of 0.9 on 04/01 (6) Depressed: Unknown if pt follows with outpatient psychiatry or counselor. Encourage to do so. (7) Alcohol abuse: History of such. - Encourage cessation (8) Methamphetamine abuse: Tox positive for methamphetamine. - Comp Field Case Manager cessation. (9) Cannabis abuse: - Comp Field Case Manager cessation (10) DVT prophylaxis: Heparin 5000 units Q8h Total Time Total Time Spent Total Time Spent (In Minutes): 35 Discharge Plan Discharge Items Patient Disposition: Home - Self-Care Reason For Visit: DKA Discharge Diagnosis: Diabetic ketoacidosis Activity: Resume your previous activity Non-emergency contact: Primary Care Provider Call non-emergency contact if: your symptoms worsen and your temperature is above 101 Follow-up/Referrals: Delta Novak MD [Physician] - (Please see Dr. Novak or one of the other providers in the clinic.) PCP,NO [Primary Care Provider] - Diet: Carb Count or DM1 and Heart Healthy Addtl Attending Provider Instructions: You were admitted for diabetic ketoacidosis. Please take the following insulin regimen: Lantus 20 units every morning Novolog 5 units with every meal Please check your blood sugars 4 times per day. We have sent scripts for your supplies as well. Please follow up with Dr. Novak in the office. They can help you manage your blood sugars. Please take the amlodipine and pantoprazole once per day to help with your blood pressure and any stomach irritation respectively. Pending Studies at Discharge: No Stand-Alone Forms: My [facility], Smoking Cessation Medications and DC Order Prescriptions: New amlodipine [Norvasc] 5 mg Tablet 5 mg PO QAM Qty: 30 RF: 0 pantoprazole 40 mg Tablet,Delayed Release (Dr/Ec) 40 mg PO QAM Qty: 30 RF: 0 Lantus Solostar U-100 Insulin 100 unit/mL (3 mL) Insulin Pen 20 unit SC QAM Qty: 15 RF: 0 insulin aspart U-100 [Novolog Flexpen U-100 Insulin] 100 unit/mL (3 mL) Insulin Pen 5 unit SC AC Qty: 15 RF: 0 (DME) diabetic supplies, miscellan. Misc See Rx Instructions .ROUTE .MEDSUPPLY Qty: 1 RF: 0 Discontinued sucralfate 100 mg/mL Suspension 10 ml PO ACHS Qty: 420 RF: 0 insulin aspart U-100 [Novolog Flexpen U-100 Insulin] 100 unit/mL (3 mL) Insulin Pen See Rx Instructions .ROUTE .COMPLEX Qty: 15 RF: 0 Discharge Orders: Discharge Order (Routine); Ordered 04/02/20 Ordered By: Darrell Frost/Other Patient Handouts: Diabetes: Sick-Day Plan Admission Data Admit Date/Time: 03/30/20 11:49 Attending Provider: Darrell Giang Admit Provider: Roberta Ford Primary Care Provider: PCP,NO Other Providers: Priyank Espinal Other Interventions: Discharge Summary Assessment (RN) Last Done: 04/02/20 17:47 Coding Level of Care Code D/C Day Management >30 mins Diagnoses DKA (diabetic ketoacidoses) E11.10 Diabetes type 1, uncontrolled E10.65 Leukocytosis D72.829 Necrotizing fasciitis M72.6 CHERYL (acute kidney injury) N17.9 Depressed F32.9 Alcohol abuse F10.10 Methamphetamine abuse F15.10 Cannabis abuse F12.10 DVT prophylaxis Z29.9
== END 2020-04-02 17:55 | disposition home or self-care (01) | DRG 637 ==
LOC: ED 09:28 → 1E 11:49 → SUATTDRO 11:49 → 1E 13:03 → 2N 04-01 15:21

== ENCOUNTER 2022-05-07 19:05 | Inpatient (IN) ==
[2022-05-07 20:17] LABS: Basophils # (auto) 0.02 K/uL (0-0.2); Basophils % (auto) 0.2 %; Eosinophils # (auto) 0.13 K/uL (0-0.50); Eosinophils % (auto) 1.4 %; Hematocrit (blood only) 37.4 % (40.1-51.0); Hemoglobin 13.2 g/dl (14.0-18.0); Immature Granulocytes # (auto) 0.03 K/uL (0.00-0.02); Immature Granulocytes % (auto) 0.3 %; Lymphocytes # (auto) 1.54 K/uL (1.2-3.4); Lymphocytes % (auto) 16.9 %; Mean Corpuscular Hemoglobin 29.6 pg (25.0-34.0); Mean Corpuscular Hgb Conc 35.3 g/dL (32.0-36.0); Mean Corpuscular Volume 83.9 fL (80.0-100.0); Mean Platelet Volume 11.5 fL (9.4-12.4); Monocytes # (auto) 0.57 K/uL (0.24-0.82); Monocytes % (auto) 6.3 %; Neutrophils # (auto) 6.82 K/uL (1.4-6.5); Neutrophils % (auto) 74.9 %; Platelet Count 286 K/uL (130-400); RDW Coefficient of Variation 11.8 % (11.5-14.5); RDW Standard Deviation 35.8 fL (36.4-46.3); Red Blood Count 4.46 M/uL (4.63-6.08); White Blood Count 9.11 K/ul (4.8-10.8)
[2022-05-07 21:34] LABS: Albumin Globulin Ratio 1.1 (0.9-2); Albumin Level 3.9 gm/dl (3.4-5.0); BUN Creatinine Ratio 15.2 (10-20); Bilirubin,Total 0.4 mg/dl (0.2-1.0); Calcium 9.8 mg/dl (8.5-10.1); Creatinine Clr Calc Pharmacy 90.5 ml/min; Est GFR (African American) 85.9 ml/min; Est GFR (Non-African American) 74.1 ml/min; Globulin 3.6 gm/dl (2.5-4.0); Potassium 4.2 mmol/L (3.5-5.1); Total Protein 7.5 gm/dl (6.0-8.3)
[2022-05-07] MEDS ORDERED: ONDANSETRON INJ 2 MG/ML 2 ML VIAL IV STA (21:42)
[2022-05-07] MEDS ORDERED: SODIUM CHLORIDE 0.9% 1000ML 1,000 ML IV ONE (21:42)
[2022-05-07] MEDS ORDERED: fentaNYL citrate 100 MCG/2 ML VIAL IV STA (21:42)
[2022-05-07] MEDS ORDERED: KETOROLAC TROMETHAMINE 15 MG/ML VIAL IV STA (21:48)
[2022-05-07] MEDS ORDERED: PIPERACILLIN/TAZOBACTAM 4.5 GM/120 ML BAG IV STA (21:49)
[2022-05-07] MEDS ORDERED: VANCOMYCIN CONSULT ACTIVE PRN (21:54)
[2022-05-07] MEDS ORDERED: VANCOMYCIN HCL 2,000 MG in SODIUM CHLORIDE 0.9% 500 ML IV ONE (21:54)
--- NOTE | 2022-05-07 21:58 | Emergency Department Note ---
Impression & Plan Cellulitis of hand, Hyperglycemia, Laceration of finger of right hand, Burn of finger of right hand ED Provider Note CHIEF COMPLAINT: right hand infection HISTORY OF PRESENT ILLNESS: This 37-year-old male patient with significant past medical history of Type I DM, necrotizing fasciitis, drug abuse, presents to the emergency department via private vehicle for evaluation of right hand infection. The patient states he is moving and accidentally stuck his right hand into a bag of broken glass yesterday. He states he cleaned it with soap and water, applied new skin to the wound, and wrapped it and electrical tape. He states that he also burned his right index finger on a stove. He has a wound on the dorsal aspect of the right index finger with some purulent discharge. The patient states today when he woke up, he noticed increased pain, swelling, and redness of the right hand overlying the second and third digits and into the palm of the hand. He is having difficulty making a fist. There is pain with any attempts at movement or light touch. He states he was initially seen by urgent care and was given a tetanus vaccination, but was referred to the emergency department for further management of his symptoms. He has not had any imaging. He has not had any fever or chills. No nausea or vomiting. Pt. has not taken any medication for his pain. He rates his pain 10/10. REVIEW OF SYSTEMS: A 10 system review of systems was performed with positives and pertinent negatives listed in the history of present illness. All other systems were reviewed and are negative. ALLERGIES: morphine - itchiness PHYSICAL EXAM: VITALS: Vitals are noted on the nurse's note and reviewed by myself. Vital signs stable. GENERAL: This is a 37-year-old with, in no acute distress, nondiaphoretic, well- developed well-nourished. SKIN: Erythema and edema of the right hand extending from the mid palm around to the dorsal aspect and overlying the second and third metacarpals. There is a scabbed over wound on the anterior medial aspect of the proximal phalanx of the third digit, just distal to the flexor crease with no active bleeding or discharge. There is an ulcerated wound on the dorsal aspect of the right second digit with some purulent discharge noted. The skin was otherwise without rashes, erythema, edema, or bruising. There is no tenting of the skin. Capillary refill less than 2 seconds. HEAD: Normocephalic atraumatic. EYES: Conjunctivae without injection, sclerae without icterus. NECK: Supple without nuchal rigidity. No lymphadenopathy. No JVD. HEART: Regular rate and rhythm without murmurs gallops or rubs. LUNGS: Clear to auscultation bilaterally without wheezes, rales or rhonchi. No retractions or accessory muscle use. MUSCULOSKELETAL: Limited flexion and extension of the right second and third digits due to pain and edema. Otherwise, no muscle atrophy, erythema, or edema noted. Full range of motion without joint tenderness in all extremities. No tenderness to palpation. Normal gait. Strength 5/5 throughout. NEURO: Patient was alert and oriented to person place and time. Normal sensation to light and sharp touch. Deep tendon reflexes 2+ throughout. No focal neurological deficits. RADIOLOGY: X-ray right hand, reviewed by myself: No acute fracture EMERGENCY DEPARTMENT COURSE: Pt. was seen and evaluated as above. He refused initial examination until he received pain medication. I immediately ordered pain medication (IV Ffentanyl, Zofran, Toradol) and was awaiting administration for evaluation. He and visitor then complained that care was being delayed. I advised him that prior to initiating workup and consultation regarding his injury, I would need to assess his injury. The patient agreed to assessment at this time. IV access was obtained, labs drawn. No leukocytosis. Mild anemia with a hemoglobin of 13.2. No thrombocytopenia. Inflammatory markers are elevated with an ESR 51 and C-reactive protein of 8.46. Blood glucose was initially elevated at 326. This did improve to 230 with administration of IV fluids. COVID-19 testing was negative. Blood cultures are pending. Patient refused lactic acid testing, as he did not want to be stuck again. Patient was medicated with IV fluids, Zosyn, vancomycin. I did discuss the case with my attending physician. He did see and evaluate the patient I consulted with orthopedics. I did speak with Dr. Graves who offered treatment as an outpatient versus inpatient. The patient would prefer to follow-up as an outpatient, he is to be given 1 g of IV Rocephin, come to the office tomorrow for evaluation and will be scheduled for surgery as an outpatient. He did request that the patient be placed Keflex as an outpatient. If he would like to be admitted, they could consult on him in the hospital and would discussed the need for surgery at that time I discussed these options with the patient and his girlfriend at bedside. The patient notes that he will have difficulty with transportation. He is hesitant to stay only because he is concerned that his girlfriend may not be allowed to stay with him overnight. I did speak with the ED charge nurse as well as nursing staff. The patient did agree to starting the process for admission and will address the visitor policy once a bed is assigned. I discussed the case with Dr. Goode, [facility]. She did agree to see and evaluate the patient for inpatient care. Please see her di ctation regarding ongoing management and care of this patient Differential diagnosis includes infection, fracture, subluxation, dislocation, contusion, ligamentous injury, neurovascular, compartment syndrome, rhabdomyolysis, as well as other pathologies. I attest that I have personally reviewed the patient's current medication list. Patient was found to have normal blood pressure on screening and does not require follow-up. The chart was completed utilizing [employer] Speech voice recognition software. Grammatical errors, random word insertions, pronoun errors, and incomplete sentences are an occasional consequence of this system due to software limitations, ambient noise, and hardware issues. Any formal questions or concerns about the content, text, or information contained within the body of this dictation should be directly addressed to the provider for clarification. Past Med/Surg History Medical History Benzodiazepine abuse Cannabis abuse Depressed GI bleed Hyperglycemia Methamphetamine abuse No significant family history Superficial thrombophlebitis Surgical History No significant past surgical history Social History Smoking Status: Current every day smoker Tobacco Type: Cigarettes Cigarettes Per Day: 8; Second Hand Exposure: No; Hx Alcohol Use: Yes Alcohol type: hard liquor Hx Substance Use: Yes Last Used Substance: Unknown Substance Use Type Other:: uses [facility] Preferred Language: Tamazight Communication Ability: Effective Training Executive Required: No Beliefs That Will Affect Care: None Current Living Situation: Significant Other Feels Safe at Home: Yes Assistive Devices: None Allergies Allergies Allergy/AdvReac Type Severity Reaction Status Date / Time morphine Allergy Intermediate HIVES Verified 05/08/22 02:06 Home Meds Home Medications Medication Instructions Recorded Confirmed dextroamphetamine-amphetamine ER 30 mg PO QAM 05/08/22 05/08/22 30 mg 24hr capsule,extend release (Adderall XR) divalproex 250 mg tablet,extended 500 mg PO QAM 05/08/22 05/08/22 release 24 hr doxepin 100 mg capsule 200 mg PO HS 05/08/22 05/08/22 insulin glargine 100 unit/mL (3 22 unit SC AMHS 05/08/22 05/08/22 mL) subcutaneous pen (Lantus Solostar U-100 Insulin) insulin lispro 100 unit/mL 1 sliding scale dose subcut 05/08/22 05/08/22 subcutaneous pen [id number] Previous Rx's Medication Instructions Recorded diabetic supplies, miscellan. #1 ea 04/02/20 pantoprazole 40 mg tablet,delayed 40 mg PO QAM #30 tabs 04/02/20 release Results & Data (ED) Vital Signs Vital Signs - 24 hr 05/07/22 19:31 05/07/22 21:33 05/07/22 22:57 Temperature 36.4 C L 37.2 C Temperature Source Temporal Artery Scan Oral Pulse Rate 103 H Pulse Rate [Left Brachial] 97 H 98 H Pulse Rhythm [Left Brachial] Regular Regular Pulse Strength [Left Brachial] Normal Normal Respiratory Rate 16 17 19 Respiratory Effort / Characteristics Non-Labored Non-Labored Respiratory Depth Normal Normal Respiratory Pattern Regular Blood Pressure 158/85 H Blood Pressure [Left Arm] 180/93 H Blood Pressure Mean 109 Blood Pressure Mean [Left Arm] 122 Pulse Oximetry 94 98 Oxygen Delivery Method Room Air Room Air Sepsis Recent Fever Within 48 Hours No Sepsis New/Unexplained Change in Mental Status No Sepsis Action Taken by Nursing No Action Required 05/08/22 02:00 Temperature Temperature Source Pulse Rate Pulse Rate [Left Brachial] 89 Pulse Rhythm [Left Brachial] Pulse Strength [Left Brachial] Respiratory Rate 18 Respiratory Effort / Characteristics Respiratory Depth Respiratory Pattern Blood Pressure Blood Pressure [Left Arm] 146/90 H Blood Pressure Mean Blood Pressure Mean [Left Arm] 108 Pulse Oximetry 100 Oxygen Delivery Method Room Air Sepsis Recent Fever Within 48 Hours Sepsis New/Unexplained Change in Mental Status Sepsis Action Taken by Nursing Laboratory Data Result diagrams: 05/07/22 20:07 05/07/22 20:07 Lab Results 05/07/22 05/07/22 05/07/22 Range/Units 20:07 20:07 20:07 WBC 9.11 (4.8-10.8) K/ul RBC 4.46 L (4.63-6.08) M/uL Hgb 13.2 L (14.0-18.0) g/dl Hct 37.4 L (40.1-51.0) % MCV 83.9 (80.0-100.0) fL MCH 29.6 (25.0-34.0) pg MCHC 35.3 (32.0-36.0) g/dL RDW Std Deviation 35.8 L (36.4-46.3) fL RDW Coeff of Yahir 11.8 (11.5-14.5) % Plt Count 286 (130-400) K/uL MPV 11.5 (9.4-12.4) fL Immature Gran % (Auto) 0.3 % Neut % (Auto) 74.9 % Lymph % (Auto) 16.9 % [place] % (Auto) 6.3 % Eos % (Auto) 1.4 % Baso % (Auto) 0.2 % Neut # (Auto) 6.82 H (1.4-6.5) K/uL Lymph # (Auto) 1.54 (1.2-3.4) K/uL [place] # (Auto) 0.57 (0.24-0.82) K/uL Eos # (Auto) 0.13 (0-0.50) K/uL Baso # (Auto) 0.02 (0-0.2) K/uL Immature Gran # (Auto) 0.03 H (0.00-0.02) K/uL ESR 51 H (0-15) mm/hr Sodium 135 L (136-145) mmol/L Potassium 4.2 (3.5-5.1) mmol/L Chloride 96 L (98-107) mmol/L Carbon Dioxide 31 (21-32) mmol/L Anion Gap 8 (3-11) BUN 19 (6-23) mg/dl Creatinine 1.25 (0.6-1.4) mg/dl Est Cr Clr Drug Dosing 90.5 ml/min Est GFR ( Amer) 85.9 ml/min Est GFR (Non-Af Amer) 74.1 ml/min BUN/Creatinine Ratio 15.2 (10-20) Glucose 326 H* (70-99(Fasting)) mg/dl POC Glucose (70-99) mg/dl Calcium 9.8 (8.5-10.1) mg/dl Total Bilirubin 0.4 (0.2-1.0) mg/dl AST 13 (13-39) U/L ALT 11 (7-52) U/L Alkaline Phosphatase 81 (34-104) U/L C-Reactive Protein (0-0.5) mg/dl Total Protein 7.5 (6.0-8.3) gm/dl Albumin 3.9 (3.4-5.0) gm/dl Globulin 3.6 (2.5-4.0) gm/dl Albumin/Globulin Ratio 1.1 (0.9-2) SARS-CoV-2, RNA, NAAT (NEGATIVE) 05/07/22 05/07/22 05/08/22 Range/Units 20:07 23:58 00:00 WBC (4.8-10.8) K/ul RBC (4.63-6.08) M/uL Hgb (14.0-18.0) g/dl Hct (40.1-51.0) % MCV (80.0-100.0) fL MCH (25.0-34.0) pg MCHC (32.0-36.0) g/dL RDW Std Deviation (36.4-46.3) fL RDW Coeff of Yahir (11.5-14.5) % Plt Count (130-400) K/uL MPV (9.4-12.4) fL Immature Gran % (Auto) % Neut % (Auto) % Lymph % (Auto) % [place] % (Auto) % Eos % (Auto) % Baso % (Auto) % Neut # (Auto) (1.4-6.5) K/uL Lymph # (Auto) (1.2-3.4) K/uL [place] # (Auto) (0.24-0.82) K/uL Eos # (Auto) (0-0.50) K/uL Baso # (Auto) (0-0.2) K/uL Immature Gran # (Auto) (0.00-0.02) K/uL ESR (0-15) mm/hr Sodium (136-145) mmol/L Potassium (3.5-5.1) mmol/L Chloride (98-107) mmol/L Carbon Dioxide (21-32) mmol/L Anion Gap (3-11) BUN (6-23) mg/dl Creatinine (0.6-1.4) mg/dl Est Cr Clr Drug Dosing ml/min Est GFR ( Amer) ml/min Est GFR (Non-Af Amer) ml/min BUN/Creatinine Ratio (10-20) Glucose (70-99(Fasting)) mg/dl POC Glucose 230 H (70-99) mg/dl Calcium (8.5-10.1) mg/dl Total Bilirubin (0.2-1.0) mg/dl AST (13-39) U/L ALT (7-52) U/L Alkaline Phosphatase (34-104) U/L C-Reactive Protein 8.46 H (0-0.5) mg/dl Total Protein (6.0-8.3) gm/dl Albumin (3.4-5.0) gm/dl Globulin (2.5-4.0) gm/dl Albumin/Globulin Ratio (0.9-2) SARS-CoV-2, RNA, NAAT NEGATIVE (NEGATIVE) Administered Medications Hydromorphone HCl (Hydromorphone Inj 0.5 Mg/0.5 Ml Syr) 0.5 mg IV Q2H PRN PRN Reason: Pain Stop: 05/22/22 04:34 Last Admin: 05/08/22 04:54 Dose: 0.5 mg Documented By: ED Vancomycin HCl 750 mg/ Sodium (Chloride) 265 mls @ 200 mls/hr IV Q12H PEDRO; Protocol Stop: 05/15/22 05:59 Last Infusion: 05/08/22 06:30 Dose: 0 mls/hr Documented By: Admin: 05/08/22 06:23 Dose: 200 mls/hr Documented By: ED Lactated Ringer's (Lr) 1,000 mls @ 125 mls/hr IV .Q8H PEDRO Stop: 05/08/22 20:59 Last Infusion: 05/08/22 06:30 Dose: 0 mls/hr Documented By: Admin: 05/08/22 05:05 Dose: 125 mls/hr Documented By: ED Discontinued Medications Fentanyl Citrate (Fentanyl Citrate 100 Mcg/2 Ml Vial) 75 mcg IV NOW STA Stop: 05/07/22 21:43 Last Admin: 05/07/22 21:58 Dose: 75 mcg Documented By: SUMAYA Hydromorphone HCl (Hydromorphone Inj 0.5 Mg/0.5 Ml Syr) 0.5 mg IV NOW STA Stop: 05/08/22 05:44 Last Admin: 05/08/22 05:58 Dose: 0.5 mg Documented By: KATHYA Sodium Chloride (Nss 1000ml) 1,000 mls @ 999 mls/hr IV .Q1H1M ONE Stop: 05/07/22 22:42 Last Infusion: 05/07/22 23:42 Dose: 0 mls/hr Documented By: Admin: 05/07/22 21:57 Dose: 999 mls/hr Documented By: SUMAYA Piperacillin Sod/Tazobactam Sod (Zosyn) 4.5 gm in 120 mls @ 240 mls/hr IV NOW STA Stop: 05/07/22 22:18 Last Infusion: 05/07/22 23:42 Dose: 0 mls/hr Documented By: Admin: 05/07/22 22:50 Dose: 240 mls/hr Documented By: SUMAYA Vancomycin HCl 2,000 mg/ (Sodium Chloride) 540 mls @ 200 mls/hr IV NOW ONE Stop: 05/08/22 00:35 Last Infusion: 05/08/22 02:43 Dose: 0 mls/hr Documented By: Admin: 05/07/22 23:29 Dose: 200 mls/hr Documented By: MOHAMUD Ioversol (Optiray 350 100ml) 100 ml IV ONCE ONE Stop: 05/08/22 06:49 Last Admin: 05/08/22 06:49 Dose: 85 ml Documented By: SHANIA Ketorolac Tromethamine (Ketorolac Tromethamine 15 Mg/Ml Vial) 15 mg IV NOW STA Stop: 05/07/22 21:49 Last Admin: 05/07/22 22:09 Dose: 15 mg Documented By: SUMAYA Lorazepam (Lorazepam 2 Mg/2 Ml Syr) 0.5 mg IV NOW STA; Protocol Stop: 05/07/22 23:45 Last Admin: 05/07/22 23:55 Dose: 0.5 mg Documented By: AN Morphine Sulfate (Morphine Sulfate 4 Mg/Ml 1 Ml Carp\Vial) 4 mg IV NOW STA Stop: 05/07/22 23:45 Last Admin: 05/07/22 23:54 Dose: 4 mg Documented By: AN Nicotine (Nicotine 21 Mg/24 Hr Tdsy) 21 mg TD NOW STA Stop: 05/07/22 23:46 Last Admin: 05/07/22 23:55 Dose: 21 mg Documented By: AN Ondansetron HCl (Ondansetron Inj 2 Mg/Ml 2 Ml Vial) 4 mg IV NOW STA Stop: 05/07/22 21:43 Last Admin: 05/07/22 21:53 Dose: 4 mg Documented By: SUMAYA Discharge Plan Visit Data Chief Complaint: Infection Stated Complaint: TENDON INFECTED, DIABETIC ED Provider: Ean Urbano ED Midlevel Provider: Shala Cordova Discharge Problem: Cellulitis of hand, Hyperglycemia, Laceration of finger of right hand, Burn of finger of right hand Patient Disposition: Admitted As Inpatient Discharge Instructions Interventions: ED Discharge Assessment Last Done: 05/08/22 04:26
[2022-05-07] MEDS ORDERED: LORazepam 2 MG/2 ML SYR IV STA (23:44)
[2022-05-07] MEDS ORDERED: MoRPHine SULFATE 4 MG/ML 1 ML CARP\\VIAL IV STA (23:44)
[2022-05-07] MEDS ORDERED: NICOTINE 21 MG/24 HR TDSY TD STA (23:45)
--- NOTE | 2022-05-07 23:47 | Emergency Department Note ---
ED Visit Note Physician Evaluation Note: Patient was seen in conjunction with the midlevel provider. Please see the midlevel provider note for full details of the patient's visit. I have personally evaluated and examined this patient. Patient presented to the ED with a wound to his right hand that he states was a puncture wound when he reached into a bag that contained broken glass. Patient states this occurred yesterday. He has fusiform swelling of the third digit of the right hand with a puncture type wound to the palmar aspect of the third digit between the MCP joint and the PIP joint. Patient is able to flex and extend the fingers with some limitation secondary to pain. Patient is a insulin-dependent diabetic, wound does appear to be actively infected. Patient will require admission to the medicine service for initiation of IV antibiotics and orthopedic consultation in the morning for definitive care and likely operative management. Case was discussed with on-call orthopedics, Dr. Graves, by the physician care team assistant. Patient was placed for admission following hospitalist consultation in stable condition for further care and ort hopedic surgical consultation. I agree with assessment and plan of PETRONA Mayes DO .
--- NOTE | 2022-05-08 02:30 | History & Physical Report ---
Date of Service May 08, 2022 Assessment & Plan (1) Cellulitis of hand: Plan: 37yo male with history of poorly controlled Type I DM presents with injury to right hand that occurred 2 days ago. Patient accidentally reached into a bag of broken glass. He has been treating it at home with peroxide and fresh bandages, however, hand has become more swollen and painful. He does not think there is retained glass in the wound. He is afebrile, HD stable and nontoxic in appearance. No clinical evidence of rapidly progressive infection. ? possible tenosynovitis? concerning due to patient's DM, right hand dominant. -Check X-ray right hand -Ean area of redness -Vancomycin and Cefepime for antibiotic coverage -Dilaudid PRN pain -Ortho consultation appreciated (2) Diabetes type 1, uncontrolled: Plan: Elevated blood sugar - improved after IV hydration. Presently 230. Patient reports compliance with his home insulin -Continue lantus 22u BID -ISS -Glycemic management consultation appreciated -Check HgbA1C with AM labs (3) Depressed: Plan: Patient is on Adderall, Divalproex and Doxepin for mental health. Continue home agents (4) GERD (gastroesophageal reflux disease): Plan: Chronic. Stable on medications -Continue Protonix 40mg po daily F/E/N - LR at 125mL/hr x 2 liters, monitor electrolytes, NPO for now in event of possible intervention in AM Ppx - Low risk for DVT Code - DNR/DNI per discussion with patient Dispo - Observation to medical with telemetry Smoking cessation counseling ordered Nicotine patch ordered Patient with history of polysubstance abuse - methamphetamine, benzo and marijuana use as well as EtOH. Presently denies use. Monitor for withdrawal symptoms. History of Present Illness Chief Complaint: right hand injury Primary Care Provider: NO PCP Rigo Vazquez is a 37-year-old male with history of type 1 diabetes poorly controlled presenting with infection of his right hand. Patient is moving. 2 days ago he accidentally reached into a bag that contained broken glass and cut the proximal portion of his middle finger on his right hand. He reported that the cut was very deep. He cleaned it out with peroxide and covered it with a bandage. Since then he has been having progressive pain, swelling and decreased mobility of his right hand. He is having difficulty closing his hand at this time. He denies fever, chills, nausea, vomiting. No pain in the wrist or arm.No additional complaints at this time. Upon arrival to the ER patient afebrile, elevated heart rate at 90 bpm, with elevated blood pressure 180/93. No respiratory distress, adequate oxygenation on room air.He was administered antibiotics in the form of vancomycin and Zosyn and given several doses of IV pain medication as below.Patient is still in significant discomfort. ER course: Nicotine 21 mg transdermal, lorazepam 0.5 mg IV, morphine 4 mg IV, vancomycin 2 g IV, Zosyn 4.5 g IV, Toradol 15 mg IV, fentanyl 75 mcg IV, Allergies Allergy/AdvReac Type Severity Reaction Status Date / Time morphine Allergy Intermediate HIVES Verified 05/08/22 02:06 Home Medications Medication Instructions Recorded Confirmed Type diabetic supplies, miscellan. #1 ea 04/02/20 05/08/22 Rx pantoprazole 40 mg tablet,delayed 40 mg PO QAM #30 tabs 04/02/20 05/08/22 Rx release dextroamphetamine-amphetamine ER 30 mg PO QAM 05/08/22 05/08/22 History 30 mg 24hr capsule,extend release (Adderall XR) divalproex 250 mg tablet,extended 500 mg PO QAM 05/08/22 05/08/22 History release 24 hr doxepin 100 mg capsule 200 mg PO HS 05/08/22 05/08/22 History insulin glargine 100 unit/mL (3 22 unit SC [facility] 05/08/22 05/08/22 History mL) subcutaneous pen (Lantus Solostar U-100 Insulin) insulin lispro 100 unit/mL 1 sliding scale dose subcut 05/08/22 05/08/22 History subcutaneous pen USEASDIRECTD Past Med/Surg History Medical History Benzodiazepine abuse Cannabis abuse Depressed GI bleed Hyperglycemia Methamphetamine abuse No significant family history Superficial thrombophlebitis Surgical History No significant past surgical history Social History Smoking Status: Current every day smoker Tobacco Type: Cigarettes Cigarettes Per Day: 20; Second Hand Exposure: No; Hx Alcohol Use: Yes Alcohol type: hard liquor Hx Substance Use: Yes Last Used Substance: Unknown Substance Use Type Other:: history of ETOH withdrawl Preferred Language: Polish Communication Ability: Effective Cuff Matcher Required: No Beliefs That Will Affect Care: None Current Living Situation: Family Feels Safe at Home: Yes Assistive Devices: None Review of Systems Review of Systems: All systems reviewed & are unremarkable except as noted in HPI & below Physical Exam Physical Exam: General: patient uncomfortable, NAD Skin: laceration at proximal portion of 3rd finger of right hand, palmar surface. Significant edema, tenderness. Hand is warm to the touch. Fingers held in partially flexed position with difficulty straightening due to pain. HEENT: NC/AT, PERRL, EOMI, anicteric sclera, conjunctiva without injection, external ear normal to inspection and nontender, nares patent, moist mucus membranes, poor dentition, no oropharyngeal lesions, neck supple, trachea midline, no LAD, no thyromegaly, no JVD Heart: +S1/S2, regular, no m/r/g Lungs: equal air entry bilaterally, no rales/rhonchi/wheezes Abd: +BS, soft, NT/ND, no masses/organomegaly/ascites Ext: warm, 2+ pulses in UE/LE bilaterally, no clubbing/cyanosis or edema Neuro: nonfocal, patient AA&O x 4, speech intact, no facial droop, moving all extremities on command with equal strength 5/5 Results & Data Results & Data ([facility]) Vital Signs (Past 12 Hours) Vital Signs Temp Pulse Pulse Resp BP BP Pulse Ox 05/08/22 02:00 89 18 146/90 H 100 05/07/22 22:57 98 H 19 180/93 H 98 05/07/22 21:33 37.2 C 97 H 17 05/07/22 19:31 36.4 C L 103 H 16 158/85 H 94 O2 Del Method 05/08/22 02:00 Room Air 05/07/22 22:57 05/07/22 21:33 Room Air 05/07/22 19:31 Room Air Laboratory Results Laboratory Results WBC 9.11 K/ul (4.8-10.8) 05/07/22 20:07 RBC 4.46 M/uL (4.63-6.08) L 05/07/22 20:07 Hgb 13.2 g/dl (14.0-18.0) L 05/07/22 20:07 Hct 37.4 % (40.1-51.0) L 05/07/22 20:07 MCV 83.9 fL (80.0-100.0) 05/07/22 20:07 MCH 29.6 pg (25.0-34.0) 05/07/22 20:07 MCHC 35.3 g/dL (32.0-36.0) 05/07/22 20:07 RDW Std Deviation 35.8 fL (36.4-46.3) L 05/07/22 20:07 RDW Coeff of Yahir 11.8 % (11.5-14.5) 05/07/22 20:07 Plt Count 286 K/uL (130-400) 05/07/22 20:07 MPV 11.5 fL (9.4-12.4) 05/07/22 20:07 Immature Gran % (Auto) 0.3 % 05/07/22 20:07 Neut % (Auto) 74.9 % 05/07/22 20:07 Lymph % (Auto) 16.9 % 05/07/22 20:07 [place] % (Auto) 6.3 % 05/07/22 20:07 Eos % (Auto) 1.4 % 05/07/22 20:07 Baso % (Auto) 0.2 % 05/07/22 20:07 Neut # (Auto) 6.82 K/uL (1.4-6.5) H 05/07/22 20:07 Lymph # (Auto) 1.54 K/uL (1.2-3.4) 05/07/22 20:07 [place] # (Auto) 0.57 K/uL (0.24-0.82) 05/07/22 20:07 Eos # (Auto) 0.13 K/uL (0-0.50) 05/07/22 20:07 Baso # (Auto) 0.02 K/uL (0-0.2) 05/07/22 20:07 Immature Gran # (Auto) 0.03 K/uL (0.00-0.02) H 05/07/22 20:07 ESR 51 mm/hr (0-15) H 05/07/22 20:07 Sodium 135 mmol/L (136-145) L 05/07/22 20:07 Potassium 4.2 mmol/L (3.5-5.1) 05/07/22 20:07 Chloride 96 mmol/L (98-107) L 05/07/22 20:07 Carbon Dioxide 31 mmol/L (21-32) 05/07/22 20:07 Anion Gap 8 (3-11) 05/07/22 20:07 BUN 19 mg/dl (6-23) 05/07/22 20:07 Creatinine 1.25 mg/dl (0.6-1.4) 05/07/22 20:07 Est Cr Clr Drug Dosing 90.5 ml/min 05/07/22 20:07 Est GFR ( Amer) 85.9 ml/min 05/07/22 20:07 Est GFR (Non-Af Amer) 74.1 ml/min 05/07/22 20:07 BUN/Creatinine Ratio 15.2 (10-20) 05/07/22 20:07 Glucose 326 mg/dl (70-99(Fasting)) H* 05/07/22 20:07 POC Glucose 230 mg/dl (70-99) H 05/07/22 23:58 Calcium 9.8 mg/dl (8.5-10.1) 05/07/22 20:07 Total Bilirubin 0.4 mg/dl (0.2-1.0) 05/07/22 20:07 AST 13 U/L (13-39) 05/07/22 20:07 ALT 11 U/L (7-52) 05/07/22 20:07 Alkaline Phosphatase 81 U/L (34-104) 05/07/22 20:07 C-Reactive Protein 8.46 mg/dl (0-0.5) H 05/07/22 20:07 Total Protein 7.5 gm/dl (6.0-8.3) 05/07/22 20:07 Albumin 3.9 gm/dl (3.4-5.0) 05/07/22 20:07 Globulin 3.6 gm/dl (2.5-4.0) 05/07/22 20:07 Albumin/Globulin Ratio 1.1 (0.9-2) 10/19/22 20:07 SARS-CoV-2, RNA, NAAT NEGATIVE (NEGATIVE) 05/08/22 00:00 PG Care Time/CCT Total # of Minutes Spent Total Time Spent with Patient: Total time spent is greater than 50% in coordination of care (as documented) at patient's floor/unit and/or counseling patient: Coding Level of Care Code INT OBSERVATION CARE 50M LVL 2 Diagnoses Cellulitis of hand L03.119 Diabetes type 1, uncontrolled E10.65 Depressed F32.9 GERD (gastroesophageal reflux disease) K21.9
[2022-05-08] MEDS ORDERED: VANCOMYCIN CONSULT ACTIVE PRN (04:35)
[2022-05-08] MEDS ORDERED: GLUCOSE 10 TAB/TUBE PO PRN (04:35)
[2022-05-08] MEDS ORDERED: PHARMACY GLYCEMIC MGMT CONSULT PRN (04:35)
[2022-05-08] MEDS ORDERED: DEXTROSE 50% 50 ML SYRINGE IV PRN (04:35)
[2022-05-08] MEDS ORDERED: POLYETHYLENE (MIRALAX) 17 GM PACK PO PRN (04:35)
[2022-05-08] MEDS ORDERED: ACETAMINOPHEN 325 MG TAB PO PRN (04:35)
[2022-05-08] MEDS ORDERED: CARBOHYDRATES FOR HYPOGLYCEMIA PO PRN (04:35)
[2022-05-08] MEDS ORDERED: SENNA 8.6 MG TAB PO PRN (04:35)
[2022-05-08] MEDS ORDERED: GLUCAGON FOR INJ 1 MG VIAL SQ PRN (04:35)
[2022-05-08] MEDS ORDERED: ONDANSETRON INJ 2 MG/ML 2 ML VIAL IV PRN ×2 (04:35→12:29)
[2022-05-08] MEDS ORDERED: GLUCOSE 40% GEL 15 GM TUBE PO PRN (04:35)
[2022-05-08] MEDS: HYDROmorphone INJ 0.5 MG/0.5 ML SYR IV PRN ×5 (04:54→21:20)
[2022-05-08] MEDS: LACTATED RINGER'S 1,000 ML IV SCH ×2 (05:05→21:23)
[2022-05-08] MEDS ORDERED: HYDROmorphone INJ 0.5 MG/0.5 ML SYR IV STA (05:43)
[2022-05-08] MEDS ORDERED: VANCOMYCIN HCL 750 MG in SODIUM CHLORIDE 0.9% 250 ML IV SCH (06:00)
--- NOTE | 2022-05-08 06:24 | Communication Note ---
Date of Service: May 08, 2022 notified of significantly increased pain and swelling after bp check and hearing popping noise in hand nv intact. + increased swelling. low suspicion for compartment syndrome per my assessment provided additional dose 0.5 Dilaudid; good relief ordered ct hand: superficial cellulitis
[2022-05-08] MEDS ORDERED: OPTIRAY 350 100ml IV ONE (06:48)
[2022-05-08] MEDS: AMPHETAMINE ASP/SULF/DEXTRAMPH ER 20 MG CAP PO SCH (07:58)
[2022-05-08] MEDS: DEXTROAMPHETAMINE/AMPHETAMINE ER 10 MG CAP PO SCH (07:58)
[2022-05-08] MEDS: INSULIN ASPART PER UNIT SC SCH ×4 (08:03→21:14)
--- NOTE | 2022-05-08 08:12 | Hospitalist Progress Note ---
Date of Service May 08, 2022 Assessment & Plan (1) Cellulitis of hand: Plan: 37yo male with history of poorly controlled Type I DM presents with injury to right hand that occurred 2 days ago. Patient accidentally reached into a bag of broken glass. He has been treating it at home with peroxide and fresh bandages, however, hand has become more swollen and painful. He does not think there is retained glass in the wound. He is afebrile, HD stable and nontoxic in appearance. No clinical evidence of rapidly progressive infection. CT hand without evidence for abscess, however, he stated about using a glue to close the wound after cleaning this out, possibly sealing in the infection requiring debridement and washout as suspect underlying flexor tenosynovitis and having issues with flexion/extension and significant swelling CRP/ESR elevated 8.4/51 Orthopedics on consult Continue Vancomycin/Cefepime empirically, was not on any abx prior to admission WBC 10.2, afberile Pain control, antiemetics prn Elevate hand recommended -- stated no one told him this Blood cultures pending NPO for OR today planned for I&D debridement 3rd finger R hand Cx from OR -- monitor /guide abx therapy following Monitor labs/cultures in AM (2) Diabetes type 1, uncontrolled: Plan: Elevated blood sugar - improved after IV hydration. 230 on admit, reported compliance with home insulin Continue lantus 22u BID BSG AC/HS, Q6 while NPO BSGs 55 this afternoon, improved to 112 A1c 11.7 from 10.7 Glycemic consulted, will consult DM educator (3) Depressed: Plan: Patient is on Adderall, Divalproex and Doxepin for mental health. Continue home agents Very agitated, also with hx Bipolar noted prior admission 2019 when discharged to inpatient psych facility in [place] (4) GERD (gastroesophageal reflux disease): Plan: Chronic. Stable on medications Continue Protonix 40mg po daily Smoking cessation counseling ordered Nicotine patch ordered Patient with history of polysubstance abuse - methamphetamine, benzo and marijuana use as well as EtOH. Presently denies use. Monitor for withdrawal symptoms. Plan NPO for OR today Continue abx/monitor cultures DM educator consulted for uncontrolled BSGs based on A1c Of note, patient threatening to leave after surgery per PA-C, if this would occur it would be AGAINST MEDICAL ADVICE, as patient with risk for septic tenosynovitis and may require longer term IV abx. Would consult with ID pending OR report/cultures given prior polysubstance abuse Admission and Anticipated Discharge Date Admission Date: May 08, 2022 Subjective BRIDGE NOTE: ADMITTED AFTER MIDNIGHT Patient evaluated this morning, significant other in bed. Patient pacing the room due to pain, primarily located at the proximal third digit on his right hand, decreased ability to bend, issues with tendons deeper possible. Stated had cleaned out/applying pressure but that it was draining too much and they ended up using liquid stitches and stated maybe allergic to the component in the glue. Discussed if dirty cut, glue would possibly seal in infection and may need washed out. Got tetanus shot in past 2 days. Patient angry and wanting to eat. Said I'm "fucking" hungry and going to eat whether we feed him or not. Ortho PA entered room, Dr Graves able to come up for evaluation and would like to keep NPO for now to ensure able to take to OR. Patient increasingly frustrated, significant other stressing importance to wait, however did empathize that will be monitoring his sugars/treatment if low. He stated he didn't care about his sugars, wants this taken care of now or wait until tomorrow. Will see what we can do and Bc from ortho going to place empirically on the OR schedule. Physical Exam Physical Exam: On admit overnight: General: patient uncomfortable, NAD Skin: laceration at proximal porti on of 3rd finger o f right hand, palm ar surface. Signi ficant edema, tend erness. Hand is w arm to the touch. Fingers held in p artially flexed po sition with diffic ulty straightening due to pain. HEEN T: NC/AT, PERRL, EOMI, anicteric sc raiza, conjunctiva without injection, external ear norm al to inspection a nd nontender, nare s patent, moist mu cus membranes, poo r dentition, no or opharyngeal lesion s, neck supple, tr achea midline, no LAD, no thyromegal y, no JVD Heart: +S1/S2, regular, n o m/r/g Lungs: eq ual air entry bila terally, no rales/ rhonchi/wheezes Ab d: +BS, soft, NT/ ND, no masses/orga nomegaly/ascites E xt: warm, 2+ puls es in UE/LE bilate rally, no clubbing /cyanosis or edema Neuro: nonfocal, patient AA&O x 4, speech intact, no facial droop, movi ng all extremities on command with e qual strength 5/5 Addendum: patient anxious and angry pacing the room demanding to eat, mildly uncomfortable, significant other in bed does appear to have aspect of pain with any movement of his R hand, primarily proximal aspect of his third finger with inability to make a first, pulses are palpable, warmth/edema of hand noted, inability for full extension as well no lymphangitic streaking up his arm Results & Data Results & Data ([facility]) Vital Signs (Past 12 Hours) Vital Signs Temp Pulse Pulse Pulse Resp BP Pulse Ox 05/08/22 05:15 99 H 05/08/22 04:30 37.0 C 102 H 20 132/83 99 05/08/22 05:20 37.0 C 102 H 20 132/83 99 05/08/22 03:00 95 H 18 169/111 H 97 05/08/22 02:00 89 18 146/90 H 100 05/07/22 22:57 98 H 19 180/93 H 98 05/07/22 21:33 37.2 C 97 H 17 O2 Del Method 05/08/22 05:15 05/08/22 04:30 Room Air 05/08/22 05:20 Room Air 05/08/22 03:00 Room Air 05/08/22 02:00 Room Air 05/07/22 22:57 05/07/22 21:33 Room Air Laboratory Results 05/08/22 05/08/22 05/08/22 Range/Units 07:24 04:34 00:00 WBC (4.8-10.8) K/ul RBC (4.63-6.08) M/uL Hgb (14.0-18.0) g/dl Hct (40.1-51.0) % MCV (80.0-100.0) fL MCH (25.0-34.0) pg MCHC (32.0-36.0) g/dL RDW Std Deviation (36.4-46.3) fL RDW Coeff of Yahir (11.5-14.5) % Plt Count (130-400) K/uL MPV (9.4-12.4) fL Immature Gran % (Auto) % Neut % (Auto) % Lymph % (Auto) % [place] % (Auto) % Eos % (Auto) % Baso % (Auto) % Neut # (Auto) (1.4-6.5) K/uL Lymph # (Auto) (1.2-3.4) K/uL [place] # (Auto) (0.24-0.82) K/uL Eos # (Auto) (0-0.50) K/uL Baso # (Auto) (0-0.2) K/uL Immature Gran # (Auto) (0.00-0.02) K/uL ESR (0-15) mm/hr Sodium (136-145) mmol/L Potassium (3.5-5.1) mmol/L Chloride (98-107) mmol/L Carbon Dioxide (21-32) mmol/L Anion Gap (3-11) BUN (6-23) mg/dl Creatinine (0.6-1.4) mg/dl Est Cr Clr Drug Dosing ml/min Est GFR ( Amer) ml/min Est GFR (Non-Af Amer) ml/min BUN/Creatinine Ratio (10-20) Glucose (70-99(Fasting)) mg/dl POC Glucose 181 H 93 (70-99) mg/dl Calcium (8.5-10.1) mg/dl Total Bilirubin (0.2-1.0) mg/dl AST (13-39) U/L ALT (7-52) U/L Alkaline Phosphatase (34-104) U/L C-Reactive Protein (0-0.5) mg/dl Total Protein (6.0-8.3) gm/dl Albumin (3.4-5.0) gm/dl Globulin (2.5-4.0) gm/dl Albumin/Globulin Ratio (0.9-2) SARS-CoV-2, RNA, NAAT NEGATIVE (NEGATIVE) 05/07/22 05/07/22 05/07/22 Range/Units 23:58 20:07 20:07 WBC (4.8-10.8) K/ul RBC (4.63-6.08) M/uL Hgb (14.0-18.0) g/dl Hct (40.1-51.0) % MCV (80.0-100.0) fL MCH (25.0-34.0) pg MCHC (32.0-36.0) g/dL RDW Std Deviation (36.4-46.3) fL RDW Coeff of Yahir (11.5-14.5) % Plt Count (130-400) K/uL MPV (9.4-12.4) fL Immature Gran % (Auto) % Neut % (Auto) % Lymph % (Auto) % [place] % (Auto) % Eos % (Auto) % Baso % (Auto) % Neut # (Auto) (1.4-6.5) K/uL Lymph # (Auto) (1.2-3.4) K/uL [place] # (Auto) (0.24-0.82) K/uL Eos # (Auto) (0-0.50) K/uL Baso # (Auto) (0-0.2) K/uL Immature Gran # (Auto) (0.00-0.02) K/uL ESR 51 H (0-15) mm/hr Sodium (136-145) mmol/L Potassium (3.5-5.1) mmol/L Chloride (98-107) mmol/L Carbon Dioxide (21-32) mmol/L Anion Gap (3-11) BUN (6-23) mg/dl Creatinine (0.6-1.4) mg/dl Est Cr Clr Drug Dosing ml/min Est GFR ( Amer) ml/min Est GFR (Non-Af Amer) ml/min BUN/Creatinine Ratio (10-20) Glucose (70-99(Fasting)) mg/dl POC Glucose 230 H (70-99) mg/dl Calcium (8.5-10.1) mg/dl Total Bilirubin (0.2-1.0) mg/dl AST (13-39) U/L ALT (7-52) U/L Alkaline Phosphatase (34-104) U/L C-Reactive Protein 8.46 H (0-0.5) mg/dl Total Protein (6.0-8.3) gm/dl Albumin (3.4-5.0) gm/dl Globulin (2.5-4.0) gm/dl Albumin/Globulin Ratio (0.9-2) SARS-CoV-2, RNA, NAAT (NEGATIVE) 05/07/22 05/07/22 Range/Units 20:07 20:07 WBC 9.11 (4.8-10.8) K/ul RBC 4.46 L (4.63-6.08) M/uL Hgb 13.2 L (14.0-18.0) g/dl Hct 37.4 L (40.1-51.0) % MCV 83.9 (80.0-100.0) fL MCH 29.6 (25.0-34.0) pg MCHC 35.3 (32.0-36.0) g/dL RDW Std Deviation 35.8 L (36.4-46.3) fL RDW Coeff of Yahir 11.8 (11.5-14.5) % Plt Count 286 (130-400) K/uL MPV 11.5 (9.4-12.4) fL Immature Gran % (Auto) 0.3 % Neut % (Auto) 74.9 % Lymph % (Auto) 16.9 % [place] % (Auto) 6.3 % Eos % (Auto) 1.4 % Baso % (Auto) 0.2 % Neut # (Auto) 6.82 H (1.4-6.5) K/uL Lymph # (Auto) 1.54 (1.2-3.4) K/uL [place] # (Auto) 0.57 (0.24-0.82) K/uL Eos # (Auto) 0.13 (0-0.50) K/uL Baso # (Auto) 0.02 (0-0.2) K/uL Immature Gran # (Auto) 0.03 H (0.00-0.02) K/uL ESR (0-15) mm/hr Sodium 135 L (136-145) mmol/L Potassium 4.2 (3.5-5.1) mmol/L Chloride 96 L (98-107) mmol/L Carbon Dioxide 31 (21-32) mmol/L Anion Gap 8 (3-11) BUN 19 (6-23) mg/dl Creatinine 1.25 (0.6-1.4) mg/dl Est Cr Clr Drug Dosing 90.5 ml/min Est GFR ( Amer) 85.9 ml/min Est GFR (Non-Af Amer) 74.1 ml/min BUN/Creatinine Ratio 15.2 (10-20) Glucose 326 H* (70-99(Fasting)) mg/dl POC Glucose (70-99) mg/dl Calcium 9.8 (8.5-10.1) mg/dl Total Bilirubin 0.4 (0.2-1.0) mg/dl AST 13 (13-39) U/L ALT 11 (7-52) U/L Alkaline Phosphatase 81 (34-104) U/L C-Reactive Protein (0-0.5) mg/dl Total Protein 7.5 (6.0-8.3) gm/dl Albumin 3.9 (3.4-5.0) gm/dl Globulin 3.6 (2.5-4.0) gm/dl Albumin/Globulin Ratio 1.1 (0.9-2) SARS-CoV-2, RNA, NAAT (NEGATIVE) Diagnostic Findings Hand X-Ray 05/07/22 21:43 XR hand RT min 3V routine CLINICAL HISTORY: Right hand pain, swelling, wound MCP right 3rd digit COMPARISON STUDY: None. FINDINGS: No acute fracture or dislocation within the right hand. There is old, healed fracture within the fifth metacarpal neck. No acute fracture or dislocation within the right hand. There is diffuse soft tissue swelling most pronounced at the middle finger. No radiopaque foreign bodies. No erosive changes identified. IMPRESSION: 1. No acute fracture or dislocation within the right hand. 2. Diffuse soft tissue swelling within the right hand most pronounced within the middle finger. ACT 112: Negative or not required by law. Electronically signed by: Jayden Montgomery M.D. 05/08/2022 9:[address] 05/08/22 06:09 CT hand RT w con HISTORY: hand/finger infection. tenosynovitis TECHNIQUE: Multiaxial CT images of the right hand were performed following the intravenous administration of 85 cc of Optiray 350 and reformatted in the sagittal and coronal plane. COMPARISON STUDY: Right hand radiograph 05/07/2022. FINDINGS: There is mild motion artifact. No acute fracture or dislocation within the right hand. No erosive changes to suggest an osteomyelitis. No radiopaque foreign bodies. Diffuse subcutaneous trace edema/swelling within the hand most pronounced within the dorsum of the hand. No loculated fluid collections to suggest an abscess. No abnormal fluid collections within the tendon sheaths. No joint effusions. IMPRESSION: 1. Diffuse soft tissue swelling/edema within the hand suggestive of a cellulitis. No loculated fluid collections to suggest an abscess. 2. No fracture, dislocation, or osteomyelitis. 3. No radiopaque foreign bodies. ACT 112: Negative or not required by law. Electronically signed by: Jayden Montgomery M.D. 05/08/2022 8:24 AM PG Care Time/CCT Total # of Minutes Spent Total Time Spent with Patient: Total time spent is greater than 50% in coordination of care (as documented) at patient's floor/unit and/or counseling patient: Coding Level of Care Code None Diagnoses Cellulitis of hand L03.119 Diabetes type 1, uncontrolled E10.65 Depressed F32.9 GERD (gastroesophageal reflux disease) K21.9
--- NOTE | 2022-05-08 08:25 | CT Scan Report ---
CT hand RT w con HISTORY: hand/finger infection. tenosynovitis TECHNIQUE: Multiaxial CT images of the right hand were performed following the intravenous administra tion of 85 cc of Optiray 350 and reformatted in the sagittal and coronal plane. COMPARISON STUDY: Right hand radiograph 05/07/2022. FINDINGS: There is mild motion artifact. No acute fracture or dislocation within the right hand. No e rosive changes to suggest an osteomyelitis. No radiopaque foreign bodies. Diffuse subcutaneous trace edema/swelling within the hand most pronounced within the dorsum of the hand. No loculated fluid romi ections to suggest an abscess. No abnormal fluid collections within the tendon sheaths. No joint effu sions. IMPRESSION: 1. Diffuse soft tissue swelling/edema within the hand suggestive of a cellulitis. No loculated fluid collections to suggest an abscess. 2. No fracture, dislocation, or osteomyelitis. 3. No radiopaque foreign bodies. ACT 112: Negative or not required by law. Electronically signed by: Jayden Montgomery M.D. 05/08/2022 8:24 AM
[2022-05-08] MEDS ORDERED: LANTUS PER UNIT CHARGE SQ SCH ×2 (09:00→21:00)
[2022-05-08] MEDS: PANTOprazole 40 MG TAB PO SCH (09:27)
[2022-05-08] MEDS: DIVALPROEX EXTENDED RELEASE 500 MG TAB PO SCH (09:27)
[2022-05-08] MEDS: CEFEPIME 2,000 MG in SYRINGE 0 ML IV SCH ×2 (09:27→19:53)
--- NOTE | 2022-05-08 09:47 | Pharmacy Report ---
Pharmacy Glycemic Short Note 2 - Date of Service May 08, 2022 - Glycemic Short BSG Results (Last 24 hours): 05/07/22 05/07/22 05/08/22 20:07 23:58 04:34 Glucose 326 H* POC Glucose 230 H 93 05/08/22 07:24 Glucose POC Glucose 181 H OUTPATIENT ANTIDIABETIC REGIMEN: * Lantus 22 units BID * Humalog SS * A1c pending ASSESSMENT: * Pt is 37 yo male with history of type 1 diabetes currently being treated with vancomycin/cefepime for a hand infection/cellulitis * BSGs elevated on admission, fasting 181 mg/dL this morning, was down to 93 mg/dL overnight * Continued current home lantus dose this AM-- do not see BSG prior to OR, post OR patient hypoglycemic 53 mg/dL, will set scale for PM * Novolog parameters currently set as weight based stress of 2- monitor for changes PLAN FOR INPATIENT GLYCEMIC CONTROL: * Hold outpatient oral diabetes medications * Basal insulin * Lantus 22 units SQ, scale up to 15 units this PM * Bolus insulin * NovoLog per scale ACHS or Q6hrs while NPO * Goal Range: Low 110 mg/dL - High 140 mg/dL * Correction Factor: 35 mg/dL/unit * Nutritional / Prandial insulin per carb ratio of 1 unit per 10 grams CHO consumed
--- NOTE | 2022-05-08 10:02 | XRay Report ---
XR hand RT min 3V routine CLINICAL HISTORY: Right hand pain, swelling, wound MCP right 3rd digit COMPARISON STUDY: None. FINDINGS: No acute fracture or dislocation within the right hand. There is old, healed fracture withi n the fifth metacarpal neck. No acute fracture or dislocation within the right hand. There is diffuse soft tissue swelling most pronounced at the middle finger. No radiopaque foreign bodies. No erosive changes identified. IMPRESSION: 1. No acute fracture or dislocation within the right hand. 2. Diffuse soft tissue swelling within the right hand most pronounced within the middle finger. ACT 112: Negative or not required by law. Electronically signed by: Jayden Montgomery M.D. 05/08/2022 9:59 AM
--- NOTE | 2022-05-08 10:11 | Orthopedic Consultation ---
Date of Consultation May 08, 2022 Assessment & Plan (1) Flexor tenosynovitis of finger: 37-year-old male with likely septic flexor tenosynovitis of the third finger of the right hand. Patient currently agitated due to pain as well as not eating for almost 24 hours. Patient is threatening to have something to eat. Myself and Kathleen Faria PA-C have discussed with him that if he does eat then he will not have surgery today most likely. Patient will require open irrigation and debridement of his left third finger infection. I have discussed the case with Dr. Graves. He will be coming to the hospital soon and we have added the patient's case onto the schedule for noon today. History of Present Illness Reason for Consultation: Right third finger infection Attending Physician: Mario Warren MD History of Present Illness Patientis a 37-year-old male with history of type 1 diabetes poorly controlled presenting with infection of his right hand. Patient is in the process of moving. Two days ago he accidentally reached into a bag that contained broken glass and cut the proximal portion of his middle finger on his right hand. Patient states the cut was fairly deep. At that time he cleaned it out with peroxide and cover the wound. He began having increased pain in the right middle finger on the volar aspect at the proximal phalanx. The patient at one point had foot Dermabond glue over the laceration. This did help stop the drainage however it worsened his symptoms. He came into the emergency room last night and was thusly admitted for further care. Currently the patient is being seen by Kathleen Faria PA-C from [facility] hospitalist group. The patient is obviously in moderate pain from his finger infection. Patient apparently has been n.p.o. since noon yesterday because they thought they were going to get into surgery sooner than later. Patient is currently threatening to have somet mina to eat and we both have discussed with the patient that if he does have something to eat then his surgery if planned, will be postponed until tomorrow. Patient is fairly agitated secondary to pain. No other complaints at this time. Allergies Allergy/AdvReac Type Severity Reaction Status Date / Time morphine Allergy Intermediate HIVES Verified 05/08/22 02:06 Home Medications Medication Instructions Recorded Confirmed Type diabetic supplies, miscellan. #1 ea 04/02/20 05/08/22 Rx pantoprazole 40 mg tablet,delayed 40 mg PO QAM #30 tabs 04/02/20 05/08/22 Rx release dextroamphetamine-amphetamine ER 30 mg PO QAM 05/08/22 05/08/22 History 30 mg 24hr capsule,extend release (Adderall XR) divalproex 250 mg tablet,extended 500 mg PO QAM 05/08/22 05/08/22 History release 24 hr doxepin 100 mg capsule 200 mg PO HS 05/08/22 05/08/22 History insulin glargine 100 unit/mL (3 22 unit SC AMHS 05/08/22 05/08/22 History mL) subcutaneous pen (Lantus Solostar U-100 Insulin) insulin lispro 100 unit/mL 1 sliding scale dose subcut 05/08/22 05/08/22 History subcutaneous pen USEASDIRECTD Patient History Medical History Benzodiazepine abuse Cannabis abuse Depressed GI bleed Hyperglycemia Methamphetamine abuse No significant family history Superficial thrombophlebitis Surgical History No significant past surgical history Social History Smoking Status: Current every day smoker Tobacco Type: Cigarettes Cigarettes Per Day: 8; Second Hand Exposure: No; Hx Alcohol Use: Yes Alcohol type: hard liquor Hx Substance Use: Yes Last Used Substance: Unknown Substance Use Type Other:: uses [facility] Preferred Language: Mongolian Communication Ability: Effective Violin Mechanic Required: No Beliefs That Will Affect Care: None Current Living Situation: Significant Other Feels Safe at Home: Yes Assistive Devices: None Physical Exam Physical Exam: 37-year-old white male, alert and oriented x3, acute distress secondary to right third finger pain. Somewhat agitated secondary to pain and n.p.o. status since yesterday. On examination of the patient's right hand, he has diffuse swelling on the volar aspect of his hand at the third MTP joint and of the third finger. Laceration of the finger and the volar aspect of the third finger noted close to the third MTP joint. There is a noticeable amount of Dermabond glue over the laceration. Moderate to severe pain on palpation of this area. He is currently unable to move the finger much secondary to pain. He does have sensation to the fingertip. Cap refills less than 2 seconds. First second and fourth and fifth fingers are unaffected at this time. He has no pain on palpation of the thenar and hyperthenar eminences. He does have mild pain on the dorsum of the hand and has some mild swelling. This is mostly around the third MTP joint. He has no pain in the right wrist or forearm. There are no striations noted going up the forearm. Even trying to slightly flex or extend the finger passively causes him severe pain. Results & Data ([facility]) Vital Signs (Past 12 Hours) Vital Signs Temp Pulse Pulse Pulse Resp BP Pulse Ox 05/08/22 05:15 99 H 05/08/22 04:30 37.0 C 102 H 20 132/83 99 05/08/22 05:20 37.0 C 102 H 20 132/83 99 05/08/22 03:00 95 H 18 169/111 H 97 05/08/22 02:00 89 18 146/90 H 100 05/07/22 22:57 98 H 19 180/93 H 98 O2 Del Method 05/08/22 05:15 05/08/22 04:30 Room Air 05/08/22 05:20 Room Air 05/08/22 03:00 Room Air 05/08/22 02:00 Room Air 05/07/22 22:57 Laboratory Results Laboratory Results WBC 9.11 K/ul (4.8-10.8) 05/07/22 20:07 RBC 4.46 M/uL (4.63-6.08) L 05/07/22 20:07 Hgb 13.2 g/dl (14.0-18.0) L 05/07/22 20:07 Hct 37.4 % (40.1-51.0) L 05/07/22 20:07 MCV 83.9 fL (80.0-100.0) 05/07/22 20:07 MCH 29.6 pg (25.0-34.0) 05/07/22 20:07 MCHC 35.3 g/dL (32.0-36.0) 05/07/22 20:07 RDW Std Deviation 35.8 fL (36.4-46.3) L 05/07/22 20:07 RDW Coeff of Yahir 11.8 % (11.5-14.5) 05/07/22 20:07 Plt Count 286 K/uL (130-400) 05/07/22 20:07 MPV 11.5 fL (9.4-12.4) 05/07/22 20:07 Immature Gran % (Auto) 0.3 % 05/07/22 20:07 Neut % (Auto) 74.9 % 05/07/22 20:07 Lymph % (Auto) 16.9 % 05/07/22 20:07 Pondera % (Auto) 6.3 % 05/07/22 20:07 Eos % (Auto) 1.4 % 05/07/22 20:07 Baso % (Auto) 0.2 % 05/07/22 20:07 Neut # (Auto) 6.82 K/uL (1.4-6.5) H 05/07/22 20:07 Lymph # (Auto) 1.54 K/uL (1.2-3.4) 05/07/22 20:07 Pondera # (Auto) 0.57 K/uL (0.24-0.82) 05/07/22 20:07 Eos # (Auto) 0.13 K/uL (0-0.50) 05/07/22 20:07 Baso # (Auto) 0.02 K/uL (0-0.2) 05/07/22 20:07 Immature Gran # (Auto) 0.03 K/uL (0.00-0.02) H 05/07/22 20:07 ESR 51 mm/hr (0-15) H 05/07/22 20:07 Sodium 135 mmol/L (136-145) L 05/07/22 20:07 Potassium 4.2 mmol/L (3.5-5.1) 05/07/22 20:07 Chloride 96 mmol/L (98-107) L 05/07/22 20:07 Carbon Dioxide 31 mmol/L (21-32) 05/07/22 20:07 Anion Gap 8 (3-11) 05/07/22 20:07 BUN 19 mg/dl (6-23) 05/07/22 20:07 Creatinine 1.25 mg/dl (0.6-1.4) 05/07/22 20:07 Est Cr Clr Drug Dosing 90.5 ml/min 05/07/22 20:07 Est GFR ( Amer) 85.9 ml/min 05/07/22 20:07 Est GFR (Non-Af Amer) 74.1 ml/min 05/07/22 20:07 BUN/Creatinine Ratio 15.2 (10-20) 05/07/22 20:07 Glucose 326 mg/dl (70-99(Fasting)) H* 05/07/22 20:07 POC Glucose 181 mg/dl (70-99) H 05/08/22 07:24 Calcium 9.8 mg/dl (8.5-10.1) 05/07/22 20:07 Total Bilirubin 0.4 mg/dl (0.2-1.0) 05/07/22 20:07 AST 13 U/L (13-39) 05/07/22 20:07 ALT 11 U/L (7-52) 05/07/22 20:07 Alkaline Phosphatase 81 U/L (34-104) 05/07/22 20:07 C-Reactive Protein 8.46 mg/dl (0-0.5) H 05/07/22 20:07 Total Protein 7.5 gm/dl (6.0-8.3) 05/07/22 20:07 Albumin 3.9 gm/dl (3.4-5.0) 05/07/22 20:07 Globulin 3.6 gm/dl (2.5-4.0) 05/07/22 20:07 Albumin/Globulin Ratio 1.1 (0.9-2) 05/07/22 20:07 SARS-CoV-2, RNA, NAAT NEGATIVE (NEGATIVE) 05/08/22 00:00 Impressions Hand X-Ray 05/07/22 21:43 XR hand RT min 3V routine CLINICAL HISTORY: Right hand pain, swelling, wound MCP right 3rd digit COMPARISON STUDY: None. FINDINGS: No acute fracture or dislocation within the right hand. There is old, healed fracture within the fifth metacarpal neck. No acute fracture or dislocation within the right hand. There is diffuse soft tissue swelling most pronounced at the middle finger. No radiopaque foreign bodies. No erosive changes identified. IMPRESSION: 1. No acute fracture or dislocation within the right hand. 2. Diffuse soft tissue swelling within the right hand most pronounced within the middle finger. ACT 112: Negative or not required by law. Electronically signed by: Jayden Montgomery M.D. 05/08/2022 9:[address] 05/08/22 06:09 CT hand RT w con HISTORY: hand/finger infection. tenosynovitis TECHNIQUE: Multiaxial CT images of the right hand were performed following the intravenous administration of 85 cc of Optiray 350 and reformatted in the sagittal and coronal plane. COMPARISON STUDY: Right hand radiograph 05/07/2022. FINDINGS: There is mild motion artifact. No acute fracture or dislocation within the right hand. No erosive changes to suggest an osteomyelitis. No radiopaque foreign bodies. Diffuse subcutaneous trace edema/swelling within the hand most pronounced within the dorsum of the hand. No loculated fluid collections to suggest an abscess. No abnormal fluid collections within the tendon sheaths. No joint effusions. IMPRESSION: 1. Diffuse soft tissue swelling/edema within the hand suggestive of a cellulitis. No loculated fluid collections to suggest an abscess. 2. No fracture, dislocation, or osteomyelitis. 3. No radiopaque foreign bodies. ACT 112: Negative or not required by law. Electronically signed by: Jayden Montgomery M.D. 05/08/2022 8:24 AM
[2022-05-08] MEDS ORDERED: fentaNYL citrate 100 MCG/2 ML VIAL ONE ×2 (11:59→12:23)
[2022-05-08] MEDS: fentaNYL citrate 100 MCG/2 ML VIAL IV PRN ×2 (12:05→12:22)
[2022-05-08] MEDS ORDERED: fentaNYL citrate 100 MCG/2 ML VIAL IV PRN (12:14)
[2022-05-08] MEDS ORDERED: MIDAZOLAM HCL 1 MG/ML 2ML VIAL ONE (12:23)
--- NOTE | 2022-05-08 12:27 | History & Physical Bridge Note ---
Date of Service May 08, 2022 History & Physical Bridge Note I have examined the patient, reviewed the History & Physical and in the interval since the performance of the History & Physical I have noted the following changes of clinical significance: no changes noted I saw Rigo in the preoperative holding area we discussed risk benefits reasonable outcomes and expectations for surgery we will plan for: Right middle finger irrigation and debridement septic flexor tenosynovitis
--- NOTE | 2022-05-08 12:28 | Anesthesiology Consultation ---
Date of Service May 08, 2022 Assessment & Plan ASA ASA3 Proposed Anesthesia Anesthesia Type: General Risk / Benefits Reviewed With: PT / POA / Parent / Guardian, Accepts Plan and Informed Consent Obtained History Surgery Operation Date: 05/08/22 09:20 Proposed Procedures p Irrigation and Debridement of Right 3rd Finger - Lefty Graves MD Height/Weight Height: 6 ft Weight: 78.4 kg Allergies Allergy/AdvReac Type Severity Reaction Status Date / Time morphine Allergy Intermediate HIVES Verified 05/08/22 02:06 Medications Home Medications Medication Instructions Recorded Confirmed Last Taken diabetic supplies, miscellan. #1 ea 04/02/20 05/08/22 Unknown pantoprazole 40 mg tablet,delayed 40 mg PO QAM #30 tabs 04/02/20 05/08/22 05/06/22 release dextroamphetamine-amphetamine ER 30 mg PO QAM 05/08/22 05/08/22 05/06/22 30 mg 24hr capsule,extend release (Adderall XR) divalproex 250 mg tablet,extended 500 mg PO QAM 05/08/22 05/08/22 05/06/22 release 24 hr doxepin 100 mg capsule 200 mg PO HS 05/08/22 05/08/22 05/06/22 insulin glargine 100 unit/mL (3 22 unit SC AMHS 05/08/22 05/08/22 05/07/22 mL) subcutaneous pen (Lantus Solostar U-100 Insulin) insulin lispro 100 unit/mL 1 sliding scale dose subcut 05/08/22 05/08/22 Unknown subcutaneous pen USEASDIRECTD Active Medications Generic Name Dose Route Start Last Admin Trade Name Flacoq PRN Reason Stop Dose Admin Amphetamine/Dextroamphetamine 10 mg 05/08/22 07:00 05/08/22 07:58 Dextroamphetamine/Amphetamine Er 10 Mg Cap PO 05/22/22 06:59 10 mg Q24H PEDRO Administration Amphetamine/Dextroamphetamine 20 mg 05/08/22 07:00 05/08/22 07:58 Amphetamine Asp/Sulf/Dextramph Er 20 Mg Cap PO 05/22/22 06:59 20 mg Q24H PEDRO Administration Divalproex Sodium 500 mg 05/08/22 09:00 05/08/22 09:27 Divalproex Extended Release 500 Mg Tab PO 06/07/22 08:59 500 mg QAM PEDRO Administration Hydromorphone HCl 0.5 mg 05/08/22 04:35 05/08/22 10:30 Hydromorphone Inj 0.5 Mg/0.5 Ml Syr IV 05/22/22 04:34 0.5 mg Q2H PRN Administration Pain Vancomycin HCl 750 mg/ Sodium 265 mls @ 200 mls/hr 05/08/22 06:00 05/08/22 06:30 Chloride IV 05/15/22 05:59 0 mls/hr Q12H PEDRO Infusion Protocol Cefepime HCl 2,000 mg/ Syringe 20 mls @ 5 mls/min 05/08/22 08:00 05/08/22 09:27 IV 05/15/22 07:59 5 mls/min Q12H PEDRO Administration Protocol Lactated Ringer's 1,000 mls @ 125 mls/hr 05/08/22 05:00 05/08/22 06:30 Lr IV 05/08/22 20:59 0 mls/hr .Q8H PEDRO Infusion Insulin Aspart 0 units 05/08/22 07:30 05/08/22 08:03 Insulin Aspart Per Unit SC 06/07/22 07:29 2 units ACHS PEDRO Administration Insulin Glargine 22 units 05/08/22 09:00 05/08/22 09:27 Lantus Per Unit Charge SQ 06/07/22 08:59 22 units BID PEDRO Administration Miscellaneous 1 each 05/08/22 08:59 05/08/22 10:25 Remove Nicoderm Patch N/A 06/07/22 08:58 1 each DAILY@0859 PEDRO Administration Pantoprazole Sodium 40 mg 05/08/22 09:00 05/08/22 09:27 Pantoprazole 40 Mg Tab PO 06/07/22 08:59 40 mg QAM PEDRO Administration NPO Date Last Intake of Fluids: 05/07/22 Time Last Intake of Fluids: 11:00 Date Last Intake of Solids: 05/07/22 Time Last Intake of Solids: 11:00 Past Medical History Medical History Benzodiazepine abuse Cannabis abuse Depressed GI bleed Hyperglycemia Methamphetamine abuse No significant family history Superficial thrombophlebitis Exercise / Class Metabolic Activity II 4-5 Yardwork/Stairs/Walk up hill Past Surgical History Surgical History No significant past surgical history Past Anesthesia History No Hx of Anesthesia Complications and No Family Hx of Anesthesia Complications History of PONV No Hx of PONV and No Hx of Motion Sickness Social History Smoking Status: Current every day smoker tobacco type: cigarettes Smoking cigarettes per day: 8 Hx Alcohol Use: Yes Alcohol type: hard liquor alcohol intake frequency: holidays/special occasions only Hx Substance Use: Yes substance use type: marijuana Substance Use Type Other:: uses [facility] Last Used Substance: Unknown Review of Systems denies fever/cough/ colds/ chest pain/ SOB/ KATHLEEN denies KATHLEEN Physical Exam Vital Signs Last Vital Signs Temp 36.9 C 05/08/22 11:45 Pulse 92 H 05/08/22 11:45 Resp 20 05/08/22 11:45 BP 150/91 H 05/08/22 10:43 Pulse Ox 100 05/08/22 11:45 O2 Del Method 05/08/22 11:45 ENMT Mouth: no TMJ abnormality and no dentition abnormality Thyromental Distance: > or= 3.5 Finger Breadths Mallampati Class: II Neck neck extension not limited Respiratory normal respiratory effort; no respiratory distress Auscultation: lungs clear to auscultation bilaterally Cardiovascular Rate/Rhythm: regular rate and regular rhythm Neurologic moves all extremities Psychiatric Orientation: alert and oriented x 3 Testing Laboratory Results 05/07/22 20:07 05/07/22 20:07 05/08/22 05/08/22 07:24 04:34 POC Glucose 181 H 93
[2022-05-08] MEDS ORDERED: ePHEDrine sulfate 50 MG/ML AMP IV PRN (12:29)
[2022-05-08] MEDS ORDERED: HYDROmorphone INJ 2 MG/ML SYR/VIAL IV PRN (12:29)
[2022-05-08] MEDS ORDERED: ATROPINE SULFATE 0.1 MG/ML 10ML SYR IV PRN (12:29)
[2022-05-08] MEDS ORDERED: BUPIVACAINE 0.25% 30 ML VIAL ONE (13:09)
--- NOTE | 2022-05-08 14:09 | Post Operative Brief Note ---
Immediate Post Op Note v1 Date of Surgery May 08, 2022 Pre & Post Diagnosis Right middle finger septic flexor tenosynovitis Same postoperative diagnosis Operation Date: 05/08/22 09:20 <No data on this case meets the specified criteria> I identified the patient and participated in the time-out.: Yes Procedure Right middle finger irrigation and debridement of septic flexor tenosynovitis Operation Date: 05/08/22 09:20 <No data on this case meets the specified criteria> Surgeon Lefty Graves MD Hotel Night Auditor Alfredo Ramirez PA-C who was necessary for prepping draping retraction expo Estimated Blood Loss 4 Findings Consistent with Post-Op Diagnosis Gross purulence to the subcutaneous tissue. Gross purulence in the flexor tendon sheath Complications None
[2022-05-08] MEDS ORDERED: PROPOFOL IV EMULSION 10 MG/ML 20 ML VIAL IV ONE (14:11)
[2022-05-08] MEDS ORDERED: ONDANSETRON INJ 2 MG/ML 2 ML VIAL ONE (14:11)
[2022-05-08] MEDS ORDERED: LIDOCAINE 2% MPF LOCAL 5 ML VIAL INFIL ONE (14:11)
[2022-05-08 14:16] LABS: Hematocrit (blood only) 31.6 % (40.1-51.0); Hemoglobin 10.9 g/dl (14.0-18.0); Mean Corpuscular Hemoglobin 29.8 pg (25.0-34.0); Mean Corpuscular Hgb Conc 34.5 g/dL (32.0-36.0); Mean Corpuscular Volume 86.3 fL (80.0-100.0); Mean Platelet Volume 11.1 fL (9.4-12.4); Platelet Count 249 K/uL (130-400); RDW Coefficient of Variation 11.9 % (11.5-14.5); Red Blood Count 3.66 M/uL (4.63-6.08); White Blood Count 10.21 K/ul (4.8-10.8)
[2022-05-08 14:49] LABS: BUN Creatinine Ratio 14.8 (10-20); Calcium 8.7 mg/dl (8.5-10.1); Creatinine Clr Calc Pharmacy 139.7 ml/min; Est GFR (African American) 133.5 ml/min; Est GFR (Non-African American) 115.1 ml/min; Estimated Average Glucose 289 mg/dl; Hemoglobin A1C 11.7 % (4.5-5.6); Magnesium 1.8 mg/dl (1.7-2.4); Potassium 3.4 mmol/L (3.5-5.1)
--- NOTE | 2022-05-08 15:27 | Pharmacy Report ---
Pharmacy PK ABX Note - Date of Service May 08, 2022 - Assessment and Plan Assessment 37 year old M receiving VANCOMYCIN/CEFEPIME for treatment of HAND INFECTION Pertinent microbiologic data includes: OR cultures pending. Day # 1 of antimicrobial therapy. Plan Vancomycin * Loading dose: 2000 mg IV x 1 * Maintenance dose: 1250 mg IV every 12 hours --> adjusted from 750 mg q12H after labs reported in afternoon * Regimen is predicted to achieve target AUC/TITI of 400-600 mg/L.hr * Random level to be ordered if continued >48 hours Pharmacy will continue to follow and will adjust dose/frequency as necessary. Thank you. Pharmacy has transitioned to AUC monitoring for vancomycin. AUC/TITI is the preferred PK/PD target and is associated with decreased risk of nephrotoxicity compared to traditional trough targets.
[2022-05-08] MEDS ORDERED: POTASSIUM CHLORIDE CRTAB 20 MEQ TABCR PO STA (15:59)
--- NOTE | 2022-05-08 16:24 | Anesthesiology Progress Note ---
Date of Service May 08, 2022 Anesthesia Post Procedure Vital Signs Vital Signs: Temp Pulse Pulse Pulse Resp BP BP 05/08/22 15:58 36.4 C L 91 H 18 157/96 H 05/08/22 15:10 82 15 158/98 H 05/08/22 15:00 80 15 168/101 H 05/08/22 15:30 83 19 147/89 H 05/08/22 15:20 36.2 C L 82 16 141/80 H 05/08/22 14:50 79 16 153/99 H 05/08/22 14:40 36.1 C L 81 19 144/91 H 05/08/22 11:45 36.9 C 92 H 20 05/08/22 10:43 36.9 C 90 18 150/91 H 05/08/22 05:15 99 H 05/08/22 04:30 37.0 C 102 H 20 132/83 05/08/22 05:20 37.0 C 102 H 20 132/83 05/08/22 03:00 95 H 18 169/111 H 05/08/22 02:00 89 18 146/90 H 05/07/22 22:57 98 H 19 180/93 H 05/07/22 21:33 37.2 C 97 H 17 05/07/22 19:31 36.4 C L 103 H 16 158/85 H Pulse Ox O2 Del Method O2 Flow Rate 05/08/22 15:58 97 05/08/22 15:10 98 Room Air 05/08/22 15:00 100 Oxymask 7 05/08/22 15:30 96 Room Air 05/08/22 15:20 98 Room Air 05/08/22 14:50 100 Oxymask 7 05/08/22 14:40 100 Oxymask 7 05/08/22 11:45 100 Room Air 05/08/22 10:43 98 Room Air 05/08/22 05:15 05/08/22 04:30 99 Room Air 05/08/22 05:20 99 Room Air 05/08/22 03:00 97 Room Air 05/08/22 02:00 100 Room Air 05/07/22 22:57 98 05/07/22 21:33 Room Air 05/07/22 19:31 94 Room Air Pain Intensity Right Hand: Pain Intensity: 8 Transfer of Care Handoff Completed per policy Notes Mental Status: alert / awake / arousable and participated in evaluation Patient Amnestic to Procedure: Yes Nausea / Vomiting: adequately controlled Pain: adequately controlled Airway Patency, RR, SpO2: stable & adequate BP & HR: stable & adequate Hydration State: stable & adequate Anesthetic Complications: no major complications apparent and Pt Satisfied with anesthetic care
[2022-05-08] MEDS: VANCOMYCIN HCL 1,250 MG in SODIUM CHLORIDE 0.9% 250 ML IV SCH ×2 (17:58→18:22)
[2022-05-08] MEDS ORDERED: Nursing to Pharmacy Communication SCH (18:00)
[2022-05-08] MEDS: DOXEPIN HCL 50 MG CAPSULE PO SCH (21:09)
[2022-05-09] MEDS: VANCOMYCIN HCL 1,250 MG in SODIUM CHLORIDE 0.9% 250 ML IV SCH ×2 (05:12→17:35)
[2022-05-09] MEDS: AMPHETAMINE ASP/SULF/DEXTRAMPH ER 20 MG CAP PO SCH ×2 (06:38→08:12)
[2022-05-09] MEDS: DEXTROAMPHETAMINE/AMPHETAMINE ER 10 MG CAP PO SCH ×2 (06:38→08:12)
--- NOTE | 2022-05-09 07:41 | Operative Report (OR) ---
DATE OF OPERATION: 05/08/2022. PREOPERATIVE DIAGNOSES: 1. Right middle finger septic flexor tenosynovitis. 2. Right middle finger open wound. PROCEDURES PERFORMED: 1. Right middle finger incision and drainage septic flexor tenosynovitis. 2. Dictation Ends Here. Job ID: [id number]
--- NOTE | 2022-05-09 08:00 | Operative Report (OR) ---
DATE OF OPERATION: 05/08/2022. PREOPERATIVE DIAGNOSES: 1. Right middle finger septic flexor tenosynovitis. 2. Right middle finger open wound. PROCEDURES PERFORMED: 1. Right middle finger incision and drainage septic flexor tenosynovitis. 2. Right middle finger irrigation and debridement, open wound, 1 x 1 cm. SURGEON: Lefty Graves MD. EXCELLENCE MANAGER: Alfredo Ramirez PA-C. Alfredo Ramirez was present for the entire procedure, was necessary for prepping, draping, retraction, exposure, and closure. FINDINGS: Gross purulence in the flexor tendon sheath. Gross purulence surrounding the flexor tendo n sheath and outside of the flexor tendon sheath. INDICATIONS: This 37-year-old gentleman, who sustained a sharp laceration. He presents with septic flexor tenosynovitis and positive Kanavel sign. The risks and benefits have been discussed including, but not limited to, risk of infection, nerve in jury, stiffness, loss of motion, failure to improve, etc. Reasonable outcomes and options of treatmen t were discussed. An explanation of appropriate alternatives to the procedure that may be advantageou s were discussed and their risks and benefits, as well as the risks and benefits of not proceeding wi th treatment. I offered to answer any additional inquiries concerning the treatment involved. All the patients questions were answered. The patient is agreeable, understanding of the treatment plan and alternatives, and wishes to proceed with the treatment plan. I saw him in the preoperative holding area. We discussed risks, benefits, reasonable outcomes and ex pectations. DESCRIPTION OF PROCEDURE: The patient's open wound was inspected. There was communication down to t he flexor tendon sheath. This is the region of the A2 ginger. I performed debridement of skin, subc utaneous tissue and fascia. This area was debrided with scissors and knife. I irrigated this area c opiously with 1 liter of normal saline. The patient had fluctuance in the flexor tendon sheath. I elected to proceed with irrigation and jian ridement of flexor tenosynovitis. I made a longitudinal incision over the A1 ginger. Dissection was carried down through the skin and subcutaneous tissues. I protected the digital nerves and opened t he A1 ginger. I made a second incision midlateral over the A5 ginger and entered the flexor tendon s jaylan bluntly there. I took care to preserve the digital nerve as well. I then pushed fluid from pr oximal to distal through the flexor tendon sheath with an 18-gauge Angiocath. This resulted in good clear fluid return. I did take cultures of the purulent material prior to irrigation. This complete d I and D of septic flexor tenosynovitis. Incisions were irrigated. A1 ginger incision was closed w ith 4-0 nylon in a running fashion. The incisions were closed loosely with 4-0 nylon. Packing was p laced in the traumatic wound. The patient was placed in soft dressing, sent to PACU in stable condit ion. POSTOPERATIVE PLAN: Will be to monitor cultures and continue antibiotics. Job ID: [id number]
--- NOTE | 2022-05-09 08:08 | Hospitalist Progress Note ---
Date of Service May 09, 2022 Assessment & Plan (1) Flexor tenosynovitis of finger: Plan: 37yo male with history of poorly controlled Type I DM presents with injury to right hand that occurred 2 days ago. Patient accidentally reached into a bag of broken glass. He has been treating it at home with peroxide and fresh bandages, however, hand has become more swollen and painful. He does not think there is retained glass in the wound. He is afebrile, HD stable and nontoxic in appearance. No clinical evidence of rapidly progressive infection. CT hand without evidence for abscess, however, he stated about using a glue to close the wound after cleaning this out, possibly sealing in the infection requiring debridement and washout as suspect underlying flexor tenosynovitis and having issues with flexion/extension and significant swelling CRP/ESR elevated 8.4/51 Orthopedics on consult POD# 1 s/p Right middle finger incision and drainage septic flexor tenosynovitis. Right middle finger irrigation and debridement, open wound, 1 x [address] Graves on 05/08 OR cx pending -- gram + cocci, WBC --> staph species on preliminary Continue Vanco/Cefepime for now as discussed with pharmacy, however if finalized tomorrow planning after 48hr IV abx to be able to d/c on Bactrim/Keflex if stable tomorrow Continue elevation (assisted with elevating on pillow on chest prior to leaving room 05/09 for comfort) Pain control -- IV available for breakthrough, attempt to limit. Ordered PO Oxycodone for this afternoon to limit need for IV and have longer lasting pain control BCX NGTD -- monitor Labs in AM/monitor cultures (2) Cellulitis of hand: (3) Diabetes type 1, uncontrolled: Plan: Elevated blood sugar - improved after IV hydration. 230 on admit, reported compliance with home insulin Continue lantus 22u BID BSG AC/HS, Q6 while NPO BSGs 55 this afternoon 05/08, improved to 112 A1c 11.7 from 10.7 Glycemic consulted, consult DM educator BSGs acceptable, continue to monitor (4) Depressed: Plan: Patient is on Adderall, Divalproex and Doxepin for mental health. Continue home agents Very agitated, also with Hx Bipolar noted prior admission 2019 when discharged to inpatient psych facility in [place] (5) GERD (gastroesophageal reflux disease): Plan: Chronic. Stable on medications Continue Protonix 40mg po daily Smoking cessation counseling ordered Nicotine patch ordered Patient with history of polysubstance abuse - methamphetamine, benzo and marijuana use as well as EtOH. Presently denies use. Monitor for withdrawal symptoms. (6) Laceration of finger of right hand: (7) Burn of finger of right hand: Plan continued inpatient stay on IV abx with monitoring of OR cx and plans for PO Bactrim/Keflex if continued improvement DM educator on consult --> will need counseling/close f/u PCP vs referral to Endocrinology Admission and Anticipated Discharge Date Admission Date: May 08, 2022 Subjective Eval this morning around 11, recently medicated for pain and resting comfortably in bed. Reports improvement in pain but still difficulty with movement in the hand. Discussed flexor tendon involvement and continue abx in IV for today and possible discharge on oral Bactrim/keflex tomorrow once sensitivities finalized to ensure adequate treatment. Denies chest pain/shortness of breath, abdominal pain, nausea or vomiting at this time. Discussed oral pain medication for this afternoon for longer lasting effect and limiting IV to as needed. Patient agreeable to plan, questions/concerns addressed. wanting to rest at this time. Review of Systems Review of Systems: All systems reviewed & are unremarkable except as noted in HPI & below Physical Exam Physical Exam: General: WN/WD male resting comfortable in bed, just medicated for pain and wanting to sleep HEENT; normocephalic, atraumatic, mmm, trachea midline RESP; CTAB, no w/c/r, on room air CV: RRR, no m/r/g :+BS, nontender MSK/Neuro: dressing intact to RUE with continued swelling (slightly decreased) and erythema (slight decreased) however improved pain with movement extension/flexion and palpation third digit some drainage to lateral aspect of digit next to fourth digit cap refill wnl good pulse no lymphagitic streaking Psych: alert, oriented, sleepy from pain medication Results & Data Results & Data ([facility]) Vital Signs (Past 12 Hours) Vital Signs Temp Pulse Pulse Resp BP Pulse Ox O2 Del Method 05/09/22 07:28 Room Air 05/09/22 07:22 89 05/09/22 07:19 36.5 C 89 18 119/67 97 Room Air 05/09/22 04:00 36.8 C 88 18 125/78 95 Room Air 05/08/22 23:27 37.1 C 88 18 127/82 97 Room Air 05/08/22 22:12 94 H Laboratory Results 05/09/22 05/09/22 05/09/22 Range/Units 11:35 09:54 09:54 WBC 10.49 (4.8-10.8) K/ul RBC 3.90 L (4.63-6.08) M/uL Hgb 11.4 L (14.0-18.0) g/dl Hct 33.5 L (40.1-51.0) % MCV 85.9 (80.0-100.0) fL MCH 29.2 (25.0-34.0) pg MCHC 34.0 (32.0-36.0) g/dL RDW Std Deviation 37.8 (36.4-46.3) fL RDW Coeff of Yahir 12.0 (11.5-14.5) % Plt Count 249 (130-400) K/uL MPV 11.9 (9.4-12.4) fL Sodium 133 L (136-145) mmol/L Potassium 4.8 D (3.5-5.1) mmol/L Chloride 102 (98-107) mmol/L Carbon Dioxide 25 (21-32) mmol/L Anion Gap 6 (3-11) BUN 12 (6-23) mg/dl Creatinine 0.95 (0.6-1.4) mg/dl Est Cr Clr Drug Dosing 119.1 ml/min Est GFR ( Amer) 119.7 ml/min Est GFR (Non-Af Amer) 103.3 ml/min BUN/Creatinine Ratio 12.6 (10-20) Glucose 233 H (70-99(Fasting)) mg/dl POC Glucose 230 H (70-99) mg/dl Estimat Average Glucose mg/dl Hemoglobin A1c (4.5-5.6) % Calcium 8.5 (8.5-10.1) mg/dl Magnesium 1.8 (1.7-2.4) mg/dl Total Creatine Kinase (30-223) U/L 05/09/22 05/08/22 05/08/22 Range/Units 07:55 20:21 16:46 WBC (4.8-10.8) K/ul RBC (4.63-6.08) M/uL Hgb (14.0-18.0) g/dl Hct (40.1-51.0) % MCV (80.0-100.0) fL MCH (25.0-34.0) pg MCHC (32.0-36.0) g/dL RDW Std Deviation (36.4-46.3) fL RDW Coeff of Yahir (11.5-14.5) % Plt Count (130-400) K/uL MPV (9.4-12.4) fL Sodium (136-145) mmol/L Potassium (3.5-5.1) mmol/L Chloride (98-107) mmol/L Carbon Dioxide (21-32) mmol/L Anion Gap (3-11) BUN (6-23) mg/dl Creatinine (0.6-1.4) mg/dl Est Cr Clr Drug Dosing ml/min Est GFR ( Amer) ml/min Est GFR (Non-Af Amer) ml/min BUN/Creatinine Ratio (10-20) Glucose (70-99(Fasting)) mg/dl POC Glucose 225 H 90 93 (70-99) mg/dl Estimat Average Glucose mg/dl Hemoglobin A1c (4.5-5.6) % Calcium (8.5-10.1) mg/dl Magnesium (1.7-2.4) mg/dl Total Creatine Kinase (30-223) U/L 05/08/22 05/08/22 05/08/22 Range/Units 15:06 14:47 14:45 WBC (4.8-10.8) K/ul RBC (4.63-6.08) M/uL Hgb (14.0-18.0) g/dl Hct (40.1-51.0) % MCV (80.0-100.0) fL MCH (25.0-34.0) pg MCHC (32.0-36.0) g/dL RDW Std Deviation (36.4-46.3) fL RDW Coeff of Yahir (11.5-14.5) % Plt Count (130-400) K/uL MPV (9.4-12.4) fL Sodium (136-145) mmol/L Potassium (3.5-5.1) mmol/L Chloride (98-107) mmol/L Carbon Dioxide (21-32) mmol/L Anion Gap (3-11) BUN (6-23) mg/dl Creatinine (0.6-1.4) mg/dl Est Cr Clr Drug Dosing ml/min Est GFR ( Amer) ml/min Est GFR (Non-Af Amer) ml/min BUN/Creatinine Ratio (10-20) Glucose (70-99(Fasting)) mg/dl POC Glucose 112 H 53 L* 53 L* (70-99) mg/dl Estimat Average Glucose mg/dl Hemoglobin A1c (4.5-5.6) % Calcium (8.5-10.1) mg/dl Magnesium (1.7-2.4) mg/dl Total Creatine Kinase (30-223) U/L 05/08/22 05/08/22 05/08/22 Range/Units 13:55 13:55 13:55 WBC 10.21 (4.8-10.8) K/ul RBC 3.66 L (4.63-6.08) M/uL Hgb 10.9 L (14.0-18.0) g/dl Hct 31.6 L (40.1-51.0) % MCV 86.3 (80.0-100.0) fL MCH 29.8 (25.0-34.0) pg MCHC 34.5 (32.0-36.0) g/dL RDW Std Deviation 38.0 (36.4-46.3) fL RDW Coeff of Yahir 11.9 (11.5-14.5) % Plt Count 249 (130-400) K/uL MPV 11.1 (9.4-12.4) fL Sodium 138 (136-145) mmol/L Potassium 3.4 L (3.5-5.1) mmol/L Chloride 105 (98-107) mmol/L Carbon Dioxide 28 (21-32) mmol/L Anion Gap 5 (3-11) BUN 12 (6-23) mg/dl Creatinine 0.81 D (0.6-1.4) mg/dl Est Cr Clr Drug Dosing 139.7 ml/min Est GFR ( Amer) 133.5 ml/min Est GFR (Non-Af Amer) 115.1 ml/min BUN/Creatinine Ratio 14.8 (10-20) Glucose 64 L (70-99(Fasting)) mg/dl POC Glucose (70-99) mg/dl Estimat Average Glucose 289 mg/dl Hemoglobin A1c 11.7 H (4.5-5.6) % Calcium 8.7 (8.5-10.1) mg/dl Magnesium 1.8 (1.7-2.4) mg/dl Total Creatine Kinase 80 (30-223) U/L Diagnostic Findings Hand CT 05/08/22 06:09 CT hand RT w con HISTORY: hand/finger infection. tenosynovitis TECHNIQUE: Multiaxial CT images of the right hand were performed following the intravenous administration of 85 cc of Optiray 350 and reformatted in the sagittal and coronal plane. COMPARISON STUDY: Right hand radiograph 05/07/2022. FINDINGS: There is mild motion artifact. No acute fracture or dislocation within the right hand. No erosive changes to suggest an osteomyelitis. No radiopaque foreign bodies. Diffuse subcutaneous trace edema/swelling within the hand most pronounced within the dorsum of the hand. No loculated fluid collections to suggest an abscess. No abnormal fluid collections within the tendon sheaths. No joint effusions. IMPRESSION: 1. Diffuse soft tissue swelling/edema within the hand suggestive of a cellulitis. No loculated fluid collections to suggest an abscess. 2. No fracture, dislocation, or osteomyelitis. 3. No radiopaque foreign bodies. ACT 112: Negative or not required by law. Electronically signed by: Jayden Montgomery M.D. 05/08/2022 8:24 AM PG Care Time/CCT Total # of Minutes Spent Total Time Spent with Patient: Total time spent is greater than 50% in coordination of care (as documented) at patient's floor/unit and/or counseling patient: Coding Level of Care Code 19435 Subseq Hosp Care Lvl 3 Diagnoses Flexor tenosynovitis of finger M65.9 Cellulitis of hand L03.119 Diabetes type 1, uncontrolled E10.65 Depressed F32.9 GERD (gastroesophageal reflux disease) K21.9 Laceration of finger of right hand S61.219A Burn of finger of right hand T23.021A
[2022-05-09] MEDS: DIVALPROEX EXTENDED RELEASE 500 MG TAB PO SCH (08:12)
[2022-05-09] MEDS: PANTOprazole 40 MG TAB PO SCH (08:12)
[2022-05-09] MEDS: CEFEPIME 2,000 MG in SYRINGE 0 ML IV SCH ×2 (08:12→21:05)
[2022-05-09] MEDS: HYDROmorphone INJ 0.5 MG/0.5 ML SYR IV PRN ×2 (08:13→17:36)
[2022-05-09] MEDS: INSULIN ASPART PER UNIT SC SCH ×4 (08:27→21:06)
[2022-05-09] MEDS ORDERED: LANTUS PER UNIT CHARGE SQ SCH (09:00)
[2022-05-09 10:55] LABS: BUN Creatinine Ratio 12.6 (10-20); Calcium 8.5 mg/dl (8.5-10.1); Creatinine Clr Calc Pharmacy 119.1 ml/min; Est GFR (African American) 119.7 ml/min; Est GFR (Non-African American) 103.3 ml/min; Hematocrit (blood only) 33.5 % (40.1-51.0); Hemoglobin 11.4 g/dl (14.0-18.0); Magnesium 1.8 mg/dl (1.7-2.4); Mean Corpuscular Hemoglobin 29.2 pg (25.0-34.0); Mean Corpuscular Volume 85.9 fL (80.0-100.0); Mean Platelet Volume 11.9 fL (9.4-12.4); Platelet Count 249 K/uL (130-400); Potassium 4.8 mmol/L (3.5-5.1); RDW Standard Deviation 37.8 fL (36.4-46.3); White Blood Count 10.49 K/ul (4.8-10.8)
--- NOTE | 2022-05-09 11:27 | Orthopedic Progress Note ---
Date of Service May 09, 2022 Assessment & Plan (1) Flexor tenosynovitis of finger: Plan: POD 1 s/p 1. Right middle finger incision and drainage septic flexor tenosynovitis. 2. Right middle finger irrigation and debridement, open wound, 1 x 1 cm. Staph Species noted on Cx from OR. Awaiting finals. Continue IV antibx Plan for dressing change tomorrow. Admission and Anticipated Discharge Date Admission Date: May 08, 2022 Subjective POD 1 Pt lying in bed sleeping. Arousable but goes back to sleep quickly. Currently appears comfortable. Physical Exam Physical Exam: Dressings intact and dry. Continues with some swellng and mild erythema. Cap refill < 2 seconds. Pt does not want to move the hand much but does enough to examin alexander aspect of dressing. Results & Data ([facility]) Vital Signs (Past 12 Hours) Vital Signs Temp Pulse Pulse Resp BP Pulse Ox O2 Del Method 05/09/22 11:25 37.1 C 90 18 132/81 95 05/09/22 07:28 Room Air 05/09/22 07:22 89 05/09/22 07:19 36.5 C 89 18 119/67 97 Room Air 05/09/22 04:00 36.8 C 88 18 125/78 95 Room Air Laboratory Results Laboratory Results WBC 10.49 K/ul (4.8-10.8) 05/09/22 09:54 RBC 3.90 M/uL (4.63-6.08) L 05/09/22 09:54 Hgb 11.4 g/dl (14.0-18.0) L 05/09/22 09:54 Hct 33.5 % (40.1-51.0) L 05/09/22 09:54 MCV 85.9 fL (80.0-100.0) 05/09/22 09:54 MCH 29.2 pg (25.0-34.0) 05/09/22 09:54 MCHC 34.0 g/dL (32.0-36.0) 05/09/22 09:54 RDW Std Deviation 37.8 fL (36.4-46.3) 05/09/22 09:54 RDW Coeff of Yahir 12.0 % (11.5-14.5) 05/09/22 09:54 Plt Count 249 K/uL (130-400) 05/09/22 09:54 MPV 11.9 fL (9.4-12.4) 05/09/22 09:54 Immature Gran % (Auto) 0.3 % 05/07/22 20:07 Neut % (Auto) 74.9 % 05/07/22 20:07 Lymph % (Auto) 16.9 % 05/07/22 20:07 [place] % (Auto) 6.3 % 05/07/22 20:07 Eos % (Auto) 1.4 % 05/07/22 20:07 Baso % (Auto) 0.2 % 05/07/22 20:07 Neut # (Auto) 6.82 K/uL (1.4-6.5) H 05/07/22 20:07 Lymph # (Auto) 1.54 K/uL (1.2-3.4) 05/07/22 20:07 [place] # (Auto) 0.57 K/uL (0.24-0.82) 05/07/22 20:07 Eos # (Auto) 0.13 K/uL (0-0.50) 05/07/22 20:07 Baso # (Auto) 0.02 K/uL (0-0.2) 05/07/22 20:07 Immature Gran # (Auto) 0.03 K/uL (0.00-0.02) H 05/07/22 20:07 ESR 51 mm/hr (0-15) H 05/07/22 20:07 Sodium 133 mmol/L (136-145) L 05/09/22 09:54 Potassium 4.8 mmol/L (3.5-5.1) D 05/09/22 09:54 Chloride 102 mmol/L (98-107) 05/09/22 09:54 Carbon Dioxide 25 mmol/L (21-32) 05/09/22 09:54 Anion Gap 6 (3-11) 05/09/22 09:54 BUN 12 mg/dl (6-23) 05/09/22 09:54 Creatinine 0.95 mg/dl (0.6-1.4) 05/09/22 09:54 Est Cr Clr Drug Dosing 119.1 ml/min 05/09/22 09:54 Est GFR ( Amer) 119.7 ml/min 05/09/22 09:54 Est GFR (Non-Af Amer) 103.3 ml/min 05/09/22 09:54 BUN/Creatinine Ratio 12.6 (10-20) 05/09/22 09:54 Glucose 233 mg/dl (70-99(Fasting)) H 05/09/22 09:54 POC Glucose 225 mg/dl (70-99) H 05/09/22 07:55 Estimat Average Glucose 289 mg/dl 05/08/22 13:55 Hemoglobin A1c 11.7 % (4.5-5.6) H 05/08/22 13:55 Calcium 8.5 mg/dl (8.5-10.1) 05/09/22 09:54 Magnesium 1.8 mg/dl (1.7-2.4) 05/09/22 09:54 Total Bilirubin 0.4 mg/dl (0.2-1.0) 05/07/22 20:07 AST 13 U/L (13-39) 05/07/22 20:07 ALT 11 U/L (7-52) 05/07/22 20:07 Alkaline Phosphatase 81 U/L (34-104) 05/07/22 20:07 Total Creatine Kinase 80 U/L (30-223) 05/08/22 13:55 C-Reactive Protein 8.46 mg/dl (0-0.5) H 05/07/22 20:07 Total Protein 7.5 gm/dl (6.0-8.3) 05/07/22 20:07 Albumin 3.9 gm/dl (3.4-5.0) 05/07/22 20:07 Globulin 3.6 gm/dl (2.5-4.0) 05/07/22 20:07 Albumin/Globulin Ratio 1.1 (0.9-2) 05/07/22 20:07 SARS-CoV-2, RNA, NAAT NEGATIVE (NEGATIVE) 05/08/22 00:00
--- NOTE | 2022-05-09 13:06 | Pharmacy Report ---
Pharmacy Glycemic Short Note 2 - Date of Service May 09, 2022 - Glycemic Short BSG Results (Last 24 hours): 05/08/22 05/08/22 05/08/22 13:55 14:45 14:47 Glucose 64 L POC Glucose 53 L* 53 L* 05/08/22 05/08/22 05/08/22 15:06 16:46 20:21 Glucose POC Glucose 112 H 93 90 05/09/22 05/09/22 05/09/22 07:55 09:54 11:35 Glucose 233 H POC Glucose 225 H 230 H OUTPATIENT ANTIDIABETIC REGIMEN: * Lantus 22 units BID * Humalog SS * A1c 11.7% ASSESSMENT: * Patient's BSGs yesterday were 181-53 (after surgery)- 93-90 mg/dL. * Today BSGs are 225-230 mg/dL. * Patient received 26 units of insulin yesterday (22 units of basal and 4 units of bolus). * Per nursing reports, patient has a lot of food in room-- including doughnuts and Bugles. I requested they cover carbohydrates that patient is consuming outside of meals. * Will give Lantus 40 units this morning. Patient's home regimen is 44 units/day and 22 units is probably insufficient. HbA1C indicates inadequate control. Lantus for tomorrow will be ordered based upon BSG trend. * Novolog weight-based stress of 2 for now. Background * Pt is 37 yo male with history of type 1 diabetes currently being treated with vancomycin/cefepime for a hand infection/cellulitis * BSGs elevated on admission, fasting 181 mg/dL this morning, was down to 93 mg/dL overnight * Continued current home lantus dose this AM-- do not see BSG prior to OR, post OR patient hypoglycemic 53 mg/dL, will set scale for PM * Novolog parameters currently set as weight based stress of 2- monitor for changes PLAN FOR INPATIENT GLYCEMIC CONTROL: * Hold outpatient oral diabetes medications * Basal insulin * Lantus 40 units SQ x 1 then reassess morning of 05/10. * Bolus insulin * NovoLog per scale ACHS or Q6hrs while NPO * Goal Range: Low 110 mg/dL - High 140 mg/dL * Correction Factor: 35 mg/dL/unit * Nutritional / Prandial insulin per carb ratio of 1 unit per 10 grams CHO consumed
[2022-05-09] MEDS: DOXEPIN HCL 50 MG CAPSULE PO SCH (21:06)
[2022-05-10] MEDS: HYDROmorphone INJ 0.5 MG/0.5 ML SYR IV PRN ×2 (03:42→17:32)
[2022-05-10] MEDS: VANCOMYCIN HCL 1,250 MG in SODIUM CHLORIDE 0.9% 250 ML IV SCH (06:14)
--- NOTE | 2022-05-10 07:34 | Hospitalist Progress Note ---
Date of Service May 10, 2022 Assessment & Plan (1) Flexor tenosynovitis of finger: Plan: 37yo male with history of poorly controlled Type I DM presents with injury to right hand that occurred 2 days ago. Patient accidentally reached into a bag of broken glass. He has been treating it at home with peroxide and fresh bandages, however, hand has become more swollen and painful. He does not think there is retained glass in the wound. He is afebrile, HD stable and nontoxic in appearance. No clinical evidence of rapidly progressive infection. CT hand without evidence for abscess, however, he stated about using a glue to close the wound after cleaning this out, possibly sealing in the infection requiring debridement and washout as suspect underlying flexor tenosynovitis and having issues with flexion/extension and significant swelling CRP/ESR elevated 8.4/51 Orthopedics on consult POD# 2 s/p Right middle finger incision and drainage septic flexor tenosynovitis. Right middle finger irrigation and debridement, open wound, 1 x [address] Graves on 05/08 OR cx MRSA Refused IV abx this AM -> transitioned to Bactrim/Keflex to ensure no missed dosing Discussed with ortho about IV abx/prior drug use history and refused IV this morning. Had initially rec 2 weeks, discussed with patient he reported he DID NOT refuse, however DID REFUSE labs, discussed with pharmacy Continue Bactrim/Keflex for now -- will d/c keflex. Asked CM to see about Dapto once daily IV through home abx company, however in this patient with patient drug history and compliance issues when offered to set up through [facility], may be more beneficial to continue w/ Bactrim given good bioavailability (Background Aug 2019 admission-- "He had been using Benzos "off the street" to help with his Crystal Meth come downs. Rigo reported to staff taking 6-13 Xanax per day. He notes not taking any benzos or meth for the past 2-3 days.") Will monitor as no ride for d/c today as demanded to go. If continued improvement on Bactrim will plan to send on PO tomorrow Pain control -- PO option added 05/09, decreased dilaudid to Q6H to limit IV use. He stated prior couldn't take the PO due to GI distress to Rn last evening but tolerating without issue today. Strongly encouraged to elevate extremity to prevent swelling --> had propped up again today as was not elevated but edema/erythema MUCH improved Will need f/u ortho in 7-10 days If worsened on PO in f/u if doing well tomorrow, may need to consider, but has had continued improvement since I&D (2) Cellulitis of hand: (3) Diabetes type 1, uncontrolled: Plan: Elevated blood sugar - improved after IV hydration. 230 on admit, reported compliance with home insulin Continue lantus 22u BID BSG AC/HS, Q6 while NPO BSGs 55 this afternoon 05/08, improved to 112 A1c 11.7 from 10.7 , UNCONTROLLED Glycemic consulted, consulted DM educator Diet/medication non-compliance. Discussed follow up with PCP/Dr Valiente -- > if sugars remain elevated outpatient strongly encouraged follow up with Endocrinology Eating multiple things outside of trays, needing to cover for those. Suspect causing sporadic peaks (4) Depressed: Plan: Patient is on Adderall, Divalproex and Doxepin for mental health. (Earlier this year rx for Abilify) Continue home agents Very agitated, also with Hx Bipolar noted prior admission 2019 when discharged to inpatient psych facility in [place] Rec f/u PCP to see about restarting this if he ran out. Will inquire NO RECENT RX FOR ADDERRAL> WILL PLACE ON HOLD Will consult psych to see about coordination of his medications as appears outpatient psych also sending rx for Seroquel outpatient, which would help with mood (5) GERD (gastroesophageal reflux disease): Plan: Chronic. Stable on medications Continue Protonix 40mg po daily Smoking cessation counseling ordered Nicotine patch ordered Patient with history of polysubstance abuse - methamphetamine, benzo and marijuana use as well as EtOH. Presently denies use. Monitor for withdrawal symptoms. (6) Laceration of finger of right hand: (7) Burn of finger of right hand: Plan continued inpatient stay likely d/c tomorrow on Bactrim consulted psych for assistance with medications rec close f/u ortho/PCP, possible endocrinology in follow up based on A1c/uncontrolled DM but non-compliant with most aspects of care Admission and Anticipated Discharge Date Admission Date: May 09, 2022 Subjective Multiple trips to patient's room to discuss discharge planning. Had become agitated/angry with orthopedic provider earlier today. Wouldn't let them finish the dressing change. Stated he wanted to "fucking sleep" and everyone keeps coming in and jabbing him for blood work and he said he only needed a chance to wake up. Discussed labs importance in guiding therapy. Also discussed IV vs PO abx at d/c as refused IV this morning. He states he DID NOT decline. Discussed elevating hand to level of heart as patient with laying flat dependent in bed without elevation. Agitated with any movements. Discussed if agreeable to IV may not be able to arrange today.Stated he WOULD NOT be staying past today. At times with eyes closed, asked if sleeping or wanting to think about options he stated "thinking" When CM went to ask about IV abx, patient responded when asked about his with "you know my date of " but wouldn't answer. Discussed with CM and attending who then saw patient and patient then without ri de for today. Will continue the BActrim for now, anticipate that's what plan will be. Review of Systems Review of Systems: All systems reviewed & are unremarkable except as noted in HPI & below Physical Exam Physical Exam: General: WN/WD male resting upon entry, agitated/annoyed with any questioning and wanting to sleep HEENT: head normocephalic, atraumatic, trachea midline, mmm Resp: CTAB, no w/c/r on room air CV: RRR, no m/r/g, no edema :+BS, nontender MSK/Neuro: dressing intact to RUE with continued swelling (significantly decreased), elevated on pillow for patient -- and erythema (slight decreased) however improved to palmar aspect, no streaking pain with movement extension/flexion and palpation third digit some drainage to lateral aspect of digit next to fourth digit cap refill wnl good pulse no lymphangitic streaking Psych: alert, oriented, sleepy from pain medication Results & Data Results & Data ([facility]) Vital Signs (Past 12 Hours) Vital Signs Temp Pulse Pulse Resp BP Pulse Ox O2 Del Method 05/10/22 03:44 36.6 C 85 16 118/77 97 Room Air 05/09/22 23:27 87 05/09/22 22:48 37.2 C 93 H 20 113/70 96 Room Air Laboratory Results 05/10/22 05/09/22 05/09/22 Range/Units 07:55 20:08 16:51 POC Glucose 101 H 221 H 174 H (70-99) mg/dl PG Care Time/CCT Total # of Minutes Spent Total Time Spent with Patient: Total time spent is greater than 50% in coordination of care (as documented) at patient's floor/unit and/or counseling patient: Coding Level of Care Code 35399 Subseq Hosp Care Lvl 3 Diagnoses Flexor tenosynovitis of finger M65.9 Cellulitis of hand L03.119 Diabetes type 1, uncontrolled E10.65 Depressed F32.9 GERD (gastroesophageal reflux disease) K21.9 Laceration of finger of right hand S61.219A Burn of finger of right hand T23.021A
[2022-05-10] MEDS: oxyCODONE/ACETAMINOPHEN 5mg/325mg TAB PO PRN ×4 (08:16→23:43)
--- NOTE | 2022-05-10 08:36 | Orthopedic Progress Note ---
Date of Service May 10, 2022 Assessment & Plan (1) Flexor tenosynovitis of finger: Plan: POD 2 s/p 1. Right middle finger incision and drainage septic flexor tenosynovitis. 2. Right middle finger irrigation and debridement, open wound, 1 x 1 cm. MRSA growing on cultures. Currently on oral Keflex and Bactrim. He was refusing IV antibiotics so oral antibiotics were ordered. I discussed IV antibiotics for approximately 2 weeks then transition to oral antibiotics. But, if he is refusing IV antibiotics, we may need to continue with the oral Keflex and Bactrim. His dressing was being changed today. He became combative and threatening to punch me so I asked his nurse to complete the dressing change. The packing was removed from the base of the middle finger. A new dressing was applied with Adaptic, gauze, gauze wrap. From an orthopedic standpoint, he is okay to discharge. He will follow-up with Dr. Graves's clinic in approximately 10 days. Discharge instructions placed. Admission and Anticipated Discharge Date Admission Date: May 09, 2022 Subjective The patient states his right hand is still sore. He has been using the as needed pain medications which improve the pain some. States he would like to have pain medications prior to dressing change. No other complaints of the right hand. Physical Exam Constitutional: WD/WN, vitals as above + combative (Upset that dressing change was taking place during breakfast.); no acute distress Musculoskeletal: Extremities: + hand abnormality Right (Swelling of the right hand. Well approximated incisions and laceration. Improved erythema.) Psychiatric: A+Ox3, euthymic affect Speech: normal rate/rhythm/volume of speech Results & Data ([facility]) Vital Signs (Past 12 Hours) Vital Signs Temp Pulse Pulse Resp BP Pulse Ox O2 Del Method 05/10/22 08:00 36.7 C 84 16 114/75 96 Room Air 05/10/22 07:49 91 H 05/10/22 03:44 36.6 C 85 16 118/77 97 Room Air 05/09/22 23:27 87 05/09/22 22:48 37.2 C 93 H 20 113/70 96 Room Air Laboratory Results Comments: Comment Culture set #1 open wound right middle finger Procedure Result Verified Site Gram Stain Final 05/09/22-0060 Gram Stain Result No Epithelial Cells Many WBCs Seen Few Gram Positive Cocci Aero/Yessica Cult Preliminary 05/10/22 Organism 1 Staph aureus MRSA Quantity Moderate Sens Sensitivities to Follow MRSA RX M.I.C. --- --------- Clindamycin S <=0.5 Daptomycin S 1 Erythromycin R >4 Oxacillin R >2 Rifampin S <=1 Tetracycline S <=4 Trimeth/Sulfa S <=0.5/9.5 Vancomycin S 2 S = SENSITIVE I = INTERMEDIATE R = RESISTANT
[2022-05-10] MEDS: DEXTROAMPHETAMINE/AMPHETAMINE ER 10 MG CAP PO SCH (08:44)
[2022-05-10] MEDS: AMPHETAMINE ASP/SULF/DEXTRAMPH ER 20 MG CAP PO SCH (08:44)
[2022-05-10] MEDS: DIVALPROEX EXTENDED RELEASE 500 MG TAB PO SCH (08:45)
[2022-05-10] MEDS: PANTOprazole 40 MG TAB PO SCH (08:45)
[2022-05-10] MEDS: cephALEXin 500 MG CAP PO SCH ×3 (08:57→17:41)
[2022-05-10] MEDS: INSULIN ASPART PER UNIT SC SCH ×4 (08:57→22:00)
[2022-05-10] MEDS: SULFAMETHOXAZOLE/TRIMETHOPRIM DS 800/160MG TAB PO SCH ×2 (08:58→21:55)
[2022-05-10] MEDS ORDERED: LANTUS PER UNIT CHARGE SQ ONE ×2 (14:45→17:30)
--- NOTE | 2022-05-10 15:12 | Pharmacy Report ---
Pharmacy Glycemic Short Note 2 - Date of Service May 10, 2022 - Glycemic Short BSG Results (Last 24 hours): 05/09/22 05/09/22 05/10/22 16:51 20:08 07:55 POC Glucose 174 H 221 H 101 H 05/10/22 14:00 POC Glucose 225 H OUTPATIENT ANTIDIABETIC REGIMEN: * Lantus 22 units BID * Humalog SS * A1c 11.7% (05/08/22) ASSESSMENT: 05/10/22 * BSGs elevated yesterday, ranging 174-230 mg/dL with fasting BSG this morning of 101 mg/dL * Patient has so far today been refusing insulin, agreeable to BSG check this afternoon which was likely after he ate lunch (225 mg/dL) * Will order reduced dose of Lantus today given significantly lower fasting BSG compared to yesterday * IV antibiotics transitioned to PO today * Hospitalist adjusted Novolog parameters yesterday evening, will continue these for now 05/09/22 * Patient's BSGs yesterday were 181-53 (after surgery)- 93-90 mg/dL. * Today BSGs are 225-230 mg/dL. * Patient received 26 units of insulin yesterday (22 units of basal and 4 units of bolus). * Per nursing reports, patient has a lot of food in room-- including doughnuts and Bugles. I requested they cover carbohydrates that patient is consuming outside of meals. * Will give Lantus 40 units this morning. Patient's home regimen is 44 units/day and 22 units is probably insufficient. HbA1C indicates inadequate control. Lantus for tomorrow will be ordered based upon BSG trend. * Novolog weight-based stress of 2 for now. Background * Pt is 37 yo male with history of type 1 diabetes currently being treated with vancomycin/cefepime for a hand infection/cellulitis * BSGs elevated on admission, fasting 181 mg/dL this morning, was down to 93 mg/dL overnight * Continued current home lantus dose this AM-- do not see BSG prior to OR, post OR patient hypoglycemic 53 mg/dL, will set scale for PM * Novolog parameters currently set as weight based stress of 2- monitor for changes PLAN FOR INPATIENT GLYCEMIC CONTROL: * Hold outpatient oral diabetes medications * Basal insulin * Lantus 25 units SC x 1 this afternoon * Bolus insulin * NovoLog per scale ACHS or Q6hrs while NPO * Goal Range: Low 110 mg/dL - High 140 mg/dL * Correction Factor: 24 mg/dL/unit * Nutritional / Prandial insulin per carb ratio of 1 unit per 8 grams CHO consumed
[2022-05-10 15:21] LABS: Basophils # (auto) 0.04 K/uL (0-0.2); Basophils % (auto) 0.5 %; Eosinophils # (auto) 0.23 K/uL (0-0.50); Eosinophils % (auto) 2.7 %; Hematocrit (blood only) 34.9 % (40.1-51.0); Hemoglobin 11.7 g/dl (14.0-18.0); Immature Granulocytes # (auto) 0.08 K/uL (0.00-0.02); Immature Granulocytes % (auto) 0.9 %; Lymphocytes % (auto) 17.6 %; Mean Corpuscular Hemoglobin 29.3 pg (25.0-34.0); Mean Corpuscular Hgb Conc 33.5 g/dL (32.0-36.0); Mean Corpuscular Volume 87.3 fL (80.0-100.0); Mean Platelet Volume 11.6 fL (9.4-12.4); Neutrophils # (auto) 6.09 K/uL (1.4-6.5); Neutrophils % (auto) 71.3 %; Nucleated RBC # (auto) 0.06 K/uL (0-0); Nucleated RBC % (auto) 0.7 %; Platelet Count 238 K/uL (130-400); RDW Coefficient of Variation 11.9 % (11.5-14.5); RDW Standard Deviation 38.5 fL (36.4-46.3); White Blood Count 8.54 K/ul (4.8-10.8)
[2022-05-10 15:37] LABS: BUN Creatinine Ratio 15.2 (10-20); Calcium 8.9 mg/dl (8.5-10.1); Creatinine Clr Calc Pharmacy 114.3 ml/min; Est GFR (African American) 113.9 ml/min; Est GFR (Non-African American) 98.3 ml/min; Magnesium 1.7 mg/dl (1.7-2.4); Potassium 5.4 mmol/L (3.5-5.1)
[2022-05-10] MEDS ORDERED: FUROSEMIDE INJ 20 MG/2 ML VIAL IV ONE (15:49)
[2022-05-10] MEDS ORDERED: SODIUM CHLORIDE 0.9% 1000ML 1,000 ML IV SCH (16:00)
[2022-05-10] MEDS: MAGNESIUM OXIDE 400 MG TAB PO SCH (17:41)
[2022-05-10] MEDS ORDERED: PRAZOSIN HCL 1 MG CAP PO SCH (21:00)
[2022-05-10] MEDS ORDERED: DOXEPIN HCL 50 MG CAPSULE PO SCH (21:00)
[2022-05-11] MEDS: HYDROmorphone INJ 0.5 MG/0.5 ML SYR IV PRN (02:06)
[2022-05-11] MEDS: oxyCODONE/ACETAMINOPHEN 5mg/325mg TAB PO PRN ×3 (03:55→12:09)
[2022-05-11 07:04] LABS: Basophils # (auto) 0.02 K/uL (0-0.2); Basophils % (auto) 0.2 %; Eosinophils % (auto) 2.4 %; Hematocrit (blood only) 32.8 % (40.1-51.0); Hemoglobin 11.1 g/dl (14.0-18.0); Immature Granulocytes # (auto) 0.02 K/uL (0.00-0.02); Immature Granulocytes % (auto) 0.2 %; Lymphocytes # (auto) 1.58 K/uL (1.2-3.4); Mean Corpuscular Hemoglobin 29.4 pg (25.0-34.0); Mean Corpuscular Hgb Conc 33.8 g/dL (32.0-36.0); Mean Platelet Volume 11.3 fL (9.4-12.4); Monocytes # (auto) 0.58 K/uL (0.24-0.82); Neutrophils # (auto) 5.92 K/uL (1.4-6.5); Neutrophils % (auto) 71.2 %; Platelet Count 251 K/uL (130-400); RDW Coefficient of Variation 11.8 % (11.5-14.5); RDW Standard Deviation 37.5 fL (36.4-46.3); Red Blood Count 3.77 M/uL (4.63-6.08); White Blood Count 8.32 K/ul (4.8-10.8)
[2022-05-11] MEDS ORDERED: LANTUS PER UNIT CHARGE SQ ONE ×2 (08:00→08:30)
[2022-05-11] MEDS: DIVALPROEX EXTENDED RELEASE 500 MG TAB PO SCH (08:03)
--- NOTE | 2022-05-11 08:03 | Hospitalist Progress Note ---
Date of Service May 11, 2022 Assessment & Plan (1) Flexor tenosynovitis of finger: Plan: 37yo male with history of poorly controlled Type I DM presents with injury to right hand that occurred 2 days ago. Patient accidentally reached into a bag of broken glass. He has been treating it at home with peroxide and fresh bandages, however, hand has become more swollen and painful. He does not think there is retained glass in the wound. He is afebrile, HD stable and nontoxic in appearance. No clinical evidence of rapidly progressive infection. CT hand without evidence for abscess, however, he stated about using a glue to close the wound after cleaning this out, possibly sealing in the infection requiring debridement and washout as suspect underlying flexor tenosynovitis and having issues with flexion/extension and significant swelling CRP/ESR elevated 8.4/51 Orthopedics on consult POD# 2 s/p Right middle finger incision and drainage septic flexor tenosynovitis. Right middle finger irrigation and debridement, open wound, 1 x [address] Graves on 05/08 OR cx MRSA Refused IV abx this AM -> transitioned to Bactrim/Keflex to ensure no missed dosing Discussed with ortho about IV abx/prior drug use history and refused IV this morning. Had initially rec 2 weeks, discussed with patient he reported he DID NOT refuse, however DID REFUSE labs, discussed with pharmacy Continue Bactrim/Keflex for now -- will d/c keflex. Asked CM to see about Dapto once daily IV through home abx company, however in this patient with patient drug history and compliance issues when offered to set up through [facility], may be more beneficial to continue w/ Bactrim given good bioavailability (Background Aug 2019 admission-- "He had been using Benzos "off the street" to help with his Crystal Meth come downs. Rigo reported to staff taking 6-13 Xanax per day. He notes not taking any benzos or meth for the past 2-3 days.") Will monitor as no ride for d/c today as demanded to go. If continued improvement on Bactrim will plan to send on PO tomorrow Pain control -- PO option added 05/09, decreased dilaudid to Q6H to limit IV use. He stated prior couldn't take the PO due to GI distress to Rn last evening but tolerating without issue today. Strongly encouraged to elevate extremity to prevent swelling --> had propped up again today as was not elevated but edema/erythema MUCH improved Will need f/u ortho in 7-10 days If worsened on PO in f/u if doing well tomorrow, may need to consider, but has had continued improvement since I&D (2) Cellulitis of hand: (3) Diabetes type 1, uncontrolled: Plan: Elevated blood sugar - improved after IV hydration. 230 on admit, reported compliance with home insulin Continue lantus 22u BID BSG AC/HS, Q6 while NPO BSGs 55 this afternoon 05/08, improved to 112 A1c 11.7 from 10.7 , UNCONTROLLED Glycemic consulted, consulted DM educator Diet/medication non-compliance. Discussed follow up with PCP/Dr Valiente -- > if sugars remain elevated outpatient strongly encouraged follow up with Endocrinology Eating multiple things outside of trays, needing to cover for those. Suspect causing sporadic peaks (4) Depressed: Plan: Patient is on Adderall, Divalproex and Doxepin for mental health. (Earlier this year rx for Abilify) Continue home agents Very agitated, also with Hx Bipolar noted prior admission 2019 when discharged to inpatient psych facility in [place] Rec f/u PCP to see about restarting this if he ran out. Will inquire NO RECENT RX FOR ADDERRAL> WILL PLACE ON HOLD Will consult psych to see about coordination of his medications as appears outpatient psych also sending rx for Seroquel outpatient, which would help with mood (5) GERD (gastroesophageal reflux disease): Plan: Chronic. Stable on medications Continue Protonix 40mg po daily Smoking cessation counseling ordered Nicotine patch ordered Patient with history of polysubstance abuse - methamphetamine, benzo and marijuana use as well as EtOH. Presently denies use. Monitor for withdrawal symptoms. (6) Laceration of finger of right hand: (7) Burn of finger of right hand: Plan continued inpatient stay likely d/c tomorrow on Bactrim consulted psych for assistance with medications rec close f/u ortho/PCP, possible endocrinology in follow up based on A1c/uncontrolled DM but non-compliant with most aspects of care Admission and Anticipated Discharge Date Admission Date: May 09, 2022 Results & Data Results & Data ([facility]) Vital Signs (Past 12 Hours) Vital Signs Temp Pulse Pulse Pulse Resp BP Pulse Ox 05/11/22 06:59 36.8 C 110 H 20 156/85 H 97 05/10/22 22:31 96 H 05/11/22 01:56 36.9 C 109 H 18 127/75 95 05/10/22 23:04 37.5 C 102 H 18 135/70 98 O2 Del Method 05/11/22 06:59 Room Air 05/10/22 22:31 05/11/22 01:56 Room Air 05/10/22 23:04 Room Air Laboratory Results 05/11/22 05/11/22 05/11/22 Range/Units 07:52 07:51 06:04 WBC (4.8-10.8) K/ul RBC (4.63-6.08) M/uL Hgb (14.0-18.0) g/dl Hct (40.1-51.0) % MCV (80.0-100.0) fL MCH (25.0-34.0) pg MCHC (32.0-36.0) g/dL RDW Std Deviation (36.4-46.3) fL RDW Coeff of Yahir (11.5-14.5) % Plt Count (130-400) K/uL MPV (9.4-12.4) fL Immature Gran % (Auto) % Neut % (Auto) % Lymph % (Auto) % Hamilton % (Auto) % Eos % (Auto) % Baso % (Auto) % Neut # (Auto) (1.4-6.5) K/uL Lymph # (Auto) (1.2-3.4) K/uL Hamilton # (Auto) (0.24-0.82) K/uL Eos # (Auto) (0-0.50) K/uL Baso # (Auto) (0-0.2) K/uL Immature Gran # (Auto) (0.00-0.02) K/uL Absolute Nucleated RBC (0-0) K/uL Nucleated RBC % (auto) % Sodium Pending (136-145) mmol/L Potassium Pending (3.5-5.1) mmol/L Chloride Pending (98-107) mmol/L Carbon Dioxide Pending (21-32) mmol/L Anion Gap Pending (3-11) BUN Pending (6-23) mg/dl Creatinine Pending (0.6-1.4) mg/dl Est Cr Clr Drug Dosing Pending ml/min Est GFR ( Amer) Pending ml/min Est GFR (Non-Af Amer) Pending ml/min BUN/Creatinine Ratio Pending (10-20) Glucose Pending (70-99(Fasting)) mg/dl POC Glucose 398 H* 386 H* (70-99) mg/dl Calcium Pending (8.5-10.1) mg/dl Magnesium Pending (1.7-2.4) mg/dl 05/11/22 05/10/22 05/10/22 Range/Units 06:04 20:26 16:34 WBC 8.32 (4.8-10.8) K/ul RBC 3.77 L (4.63-6.08) M/uL Hgb 11.1 L (14.0-18.0) g/dl Hct 32.8 L (40.1-51.0) % MCV 87.0 (80.0-100.0) fL MCH 29.4 (25.0-34.0) pg MCHC 33.8 (32.0-36.0) g/dL RDW Std Deviation 37.5 (36.4-46.3) fL RDW Coeff of Yahir 11.8 (11.5-14.5) % Plt Count 251 (130-400) K/uL MPV 11.3 (9.4-12.4) fL Immature Gran % (Auto) 0.2 % Neut % (Auto) 71.2 % Lymph % (Auto) 19.0 % Hamilton % (Auto) 7.0 % Eos % (Auto) 2.4 % Baso % (Auto) 0.2 % Neut # (Auto) 5.92 (1.4-6.5) K/uL Lymph # (Auto) 1.58 (1.2-3.4) K/uL Hamilton # (Auto) 0.58 (0.24-0.82) K/uL Eos # (Auto) 0.20 (0-0.50) K/uL Baso # (Auto) 0.02 (0-0.2) K/uL Immature Gran # (Auto) 0.02 (0.00-0.02) K/uL Absolute Nucleated RBC (0-0) K/uL Nucleated RBC % (auto) % Sodium (136-145) mmol/L Potassium (3.5-5.1) mmol/L Chloride (98-107) mmol/L Carbon Dioxide (21-32) mmol/L Anion Gap (3-11) BUN (6-23) mg/dl Creatinine (0.6-1.4) mg/dl Est Cr Clr Drug Dosing ml/min Est GFR ( Amer) ml/min Est GFR (Non-Af Amer) ml/min BUN/Creatinine Ratio (10-20) Glucose (70-99(Fasting)) mg/dl POC Glucose 266 H 263 H (70-99) mg/dl Calcium (8.5-10.1) mg/dl Magnesium (1.7-2.4) mg/dl 05/10/22 05/10/22 05/10/22 Range/Units 14:59 14:59 14:00 WBC 8.54 (4.8-10.8) K/ul RBC 4.00 L (4.63-6.08) M/uL Hgb 11.7 L (14.0-18.0) g/dl Hct 34.9 L (40.1-51.0) % MCV 87.3 (80.0-100.0) fL MCH 29.3 (25.0-34.0) pg MCHC 33.5 (32.0-36.0) g/dL RDW Std Deviation 38.5 (36.4-46.3) fL RDW Coeff of Yahir 11.9 (11.5-14.5) % Plt Count 238 (130-400) K/uL MPV 11.6 (9.4-12.4) fL Immature Gran % (Auto) 0.9 % Neut % (Auto) 71.3 % Lymph % (Auto) 17.6 % Hamilton % (Auto) 7.0 % Eos % (Auto) 2.7 % Baso % (Auto) 0.5 % Neut # (Auto) 6.09 (1.4-6.5) K/uL Lymph # (Auto) 1.50 (1.2-3.4) K/uL Hamilton # (Auto) 0.60 (0.24-0.82) K/uL Eos # (Auto) 0.23 (0-0.50) K/uL Baso # (Auto) 0.04 (0-0.2) K/uL Immature Gran # (Auto) 0.08 H (0.00-0.02) K/uL Absolute Nucleated RBC 0.06 H (0-0) K/uL Nucleated RBC % (auto) 0.7 % Sodium 134 L (136-145) mmol/L Potassium 5.4 H (3.5-5.1) mmol/L Chloride 103 (98-107) mmol/L Carbon Dioxide 26 (21-32) mmol/L Anion Gap 5 (3-11) BUN 15 (6-23) mg/dl Creatinine 0.99 (0.6-1.4) mg/dl Est Cr Clr Drug Dosing 114.3 ml/min Est GFR ( Amer) 113.9 ml/min Est GFR (Non-Af Amer) 98.3 ml/min BUN/Creatinine Ratio 15.2 (10-20) Glucose 279 H (70-99(Fasting)) mg/dl POC Glucose 225 H (70-99) mg/dl Calcium 8.9 (8.5-10.1) mg/dl Magnesium 1.7 (1.7-2.4) mg/dl PG Care Time/CCT Total # of Minutes Spent Total Time Spent with Patient: Total time spent is greater than 50% in coordination of care (as documented) at patient's floor/unit and/or counseling patient: Coding Diagnoses Flexor tenosynovitis of finger M65.9 Cellulitis of hand L03.119 Diabetes type 1, uncontrolled E10.65 Depressed F32.9 GERD (gastroesophageal reflux disease) K21.9 Laceration of finger of right hand S61.219A Burn of finger of right hand T23.021A
[2022-05-11] MEDS: SULFAMETHOXAZOLE/TRIMETHOPRIM DS 800/160MG TAB PO SCH (08:04)
[2022-05-11] MEDS: MAGNESIUM OXIDE 400 MG TAB PO SCH (08:04)
[2022-05-11] MEDS: PANTOprazole 40 MG TAB PO SCH (08:04)
[2022-05-11 08:14] LABS: BUN Creatinine Ratio 11.5 (10-20); Calcium 8.3 mg/dl (8.5-10.1); Creatinine Clr Calc Pharmacy 92.8 ml/min; Est GFR (African American) 88.5 ml/min; Est GFR (Non-African American) 76.3 ml/min; Magnesium 1.6 mg/dl (1.7-2.4); Potassium 4.5 mmol/L (3.5-5.1)
[2022-05-11] MEDS ORDERED: INSULIN HUMAN REGULAR PER UNIT 8 UNITS in SYRINGE 7.92 ML IV ONE (08:30)
[2022-05-11] MEDS: INSULIN ASPART PER UNIT SC SCH ×2 (08:57→12:48)
[2022-05-11] MEDS ORDERED: ESCITALOPRAM OXALATE 10 MG TAB PO SCH (09:00)
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
[2022-05-11] MEDS: MAGNESIUM SULFATE / D5W 1 GM/100 ML BAG IV SCH ×2 (11:45→14:32)
[2022-05-11] MEDS ORDERED: DAPTOmycin 475 MG in SYRINGE 0 ML IV SCH (12:00)
--- NOTE | 2022-05-11 13:05 | Discharge Summary ---
Date of Service May 11, 2022 Admission HPI Per Admitting Provider Rigo Vazquez is a 37-year-old male with history of type 1 diabetes poorly controlled presenting with infection of his right hand. Patient is moving. 2 days ago he accidentally reached into a bag that contained broken glass and cut the proximal portion of his middle finger on his right hand. He reported that the cut was very deep. He cleaned it out with peroxide and covered it with a bandage. Since then he has been having progressive pain, swelling and decreased mobility of his right hand. He is having difficulty closing his hand at this time. He denies fever, chills, nausea, vomiting. No pain in the wrist or arm.No additional complaints at this time. Upon arrival to the ER patient afebrile, elevated heart rate at 90 bpm, with elevated blood pressure 180/93. No respiratory distress, adequate oxygenation on room air.He was administered antibiotics in the form of vancomycin and Zosyn and given several doses of IV pain medication as below.Patient is still in significant discomfort. ER course: Nicotine 21 mg transdermal, lorazepam 0.5 mg IV, morphine 4 mg IV, vancomycin 2 g IV, Zosyn 4.5 g IV, Toradol 15 mg IV, fentanyl 75 mcg IV, Admission Exam Per Admitting Provider General: patient uncomfortable, NAD Skin: laceration at proximal portion of 3rd finger of right hand, palmar surface. Significant edema, tenderness. Hand is warm to the touch. Fingers held in partially flexed position with difficulty straightening due to pain. HEENT: NC/AT, PERRL, EOMI, anicteric sclera, conjunctiva without injection, external ear normal to inspection and nontender, nares patent, moist mucus membranes, poor dentition, no oropharyngeal lesions, neck supple, trachea midline, no LAD, no thyromegaly, no JVD Heart: +S1/S2, regular, no m/r/g Lungs: equal air entry bilaterally, no rales/rhonchi/wheezes Abd: +BS, soft, NT/ND, no masses/organomegaly/ascites Ext: warm, 2+ pulses in UE/LE bilaterally, no clubbing/cyanosis or edema Neuro: nonfocal, patient AA&O x 4, speech intact, no facial droop, moving all extremities on command with equal strength 5/5 Principal Diagnosis Infected Flexor Tenosynovitis RIGHT middle third finger Discharge Exam General: WN/WD male resting upon entry, agitated/annoyed with any questioning and wanting to sleep HEENT: head normocephalic, atraumatic, trachea midline, mmm Resp: CTAB, no w/c/r on room air CV: RRR, no m/r/g, no edema :+BS, nontender MSK/Neuro: dressing intact to RUE with significantly decreased swelling, improvement in mobility of fingers, decreased tenderness to R third digit erythema to palmar aspect almost completely resolved extremity elevated but not to level of heart, assisted with pillow/further elevation decreased tenderness with passive ROM, no expressible drainage, still not able to make fist though due to swelling, although decreased. Was unable to even move finger AT ALL prior to surgery cap refill wnl good pulses no lymphangitic streaking up arm Psych: alert, oriented, less agitated/irritated, thankful for care provided and spending additional time with him, but still adamant about going home today and not staying overnight for arrangement of antibiotics Discharge Data Allergies Allergy/AdvReac Type Severity Reaction Status Date / Time morphine Allergy Intermediate HIVES Verified 05/08/22 02:06 Consultations 05/08/22 01:33 ED Decision to Admit Stat 05/08/22 04:35 Consult Orthopedic Surgery Routine 05/10/22 13:39 Consult Psychiatry Routine Procedures Performed Operation Date: 05/08/22 09:20 Actual Procedures p Irrigation and Debridement of Right 3rd Finger(Right) - Lefty Graves MD Ordered Studies Hand X-Ray 05/07/22 21:43 XR hand RT min 3V routine CLINICAL HISTORY: Right hand pain, swelling, wound MCP right 3rd digit COMPARISON STUDY: None. FINDINGS: No acute fracture or dislocation within the right hand. There is old, healed fracture within the fifth metacarpal neck. No acute fracture or dislocation within the right hand. There is diffuse soft tissue swelling most pronounced at the middle finger. No radiopaque foreign bodies. No erosive changes identified. IMPRESSION: 1. No acute fracture or dislocation within the right hand. 2. Diffuse soft tissue swelling within the right hand most pronounced within the middle finger. ACT 112: Negative or not required by law. Electronically signed by: Jayden Montgomery M.D. 05/08/2022 9:[address] 05/08/22 06:09 CT hand RT w con HISTORY: hand/finger infection. tenosynovitis TECHNIQUE: Multiaxial CT images of the right hand were performed following the intravenous administration of 85 cc of Optiray 350 and reformatted in the sagittal and coronal plane. COMPARISON STUDY: Right hand radiograph 05/07/2022. FINDINGS: There is mild motion artifact. No acute fracture or dislocation within the right hand. No erosive changes to suggest an osteomyelitis. No radiopaque foreign bodies. Diffuse subcutaneous trace edema/swelling within the hand most pronounced within the dorsum of the hand. No loculated fluid collections to suggest an abscess. No abnormal fluid collections within the tendon sheaths. No joint effusions. IMPRESSION: 1. Diffuse soft tissue swelling/edema within the hand suggestive of a cellulitis. No loculated fluid collections to suggest an abscess. 2. No fracture, dislocation, or osteomyelitis. 3. No radiopaque foreign bodies. ACT 112: Negative or not required by law. Electronically signed by: Jayden Montgomery M.D. 05/08/2022 8:24 AM Hospital Course (1) Flexor tenosynovitis of finger: 37yo male with history of poorly controlled Type I DM presents with injury to right hand that occurred 2 days ago. Patient accidentally reached into a bag of broken glass. He has been treating it at home with peroxide and fresh bandages, however, hand has become more swollen and painful. He does not think there is retained glass in the wound. He is afebrile, HD stable and nontoxic in appearance. No clinical evidence of rapidly progressive infection. CT hand without evidence for abscess, no osteromyelitis. Noted cellulitis * however, he stated about using a glue to close the wound after cleaning this out, sealing in the infection requiring debridement and washout as initially suspected underlying flexor tenosynovitis and having issues with flexion/extension and significant swelling CRP/ESR elevated 8.4/51 Orthopedics, Dr Graves, on consult. s/p Right middle finger incision and drainage septic flexor tenosynovitis. Right middle finger irrigation and debridement, open wound, [address] Graves on 05/08 Cx with MRSA Had been on Vanco/Cefepime from admission evening 05/07 through AM 05/10 when refused AM when tired/wanting to sleep. * Switched to Bactrim/Keflex initially to not miss any doses during discussion. In afternoon 05/10 patient demanding to leave but was unable to get a ride and stayed overnight. * Discussed IV abx for d/c per discussion with orthopedics, patient not wanting to stay overnight and do once daily Dapto 05/11 -05/12 as home IV abx could be arranged for Thursday. Did NOT want to come back into [facility] tomorrow due to transportation issues. * Discussed with ortho/pharmacy, given Dapto IV x 1 dose 05/11 prior to d/c and to continue Bactrim BID at home (starting 05/12 as discussed with patient) for total 2 weeks. Close f/u with orthopedics this week ELEVATION STRESSED multiple times, to at least level of heart Dressing changed 05/11, continue in place 24-48 hours, can shower, no soaking. Cover w/ bacitracin/bandaid after inital dressing change. Supplies provided. Social Issues recently moving, hasn't seen PCP in quite some time. Uncontrolled DM. Patient reported not having any of his insulin/supplies at this time, but also suspect dietary indiscretions as well Strongly encouraged medication compliance with insulin for his diabetes Sent rx for insulin, pen needles, and Anita monitor for monitoring as reported not able to obtain previously and not wanting to stick himself multiple times daily (also reported didn't have any of his supplies for his diabetes anymore/misplaced with the move) CM to contact this week regarding new PCP, referral to endocrinology as well Psych seen during inpatient stay -- should have outpatient follow up care. . -- Did NOT send rx for Adderall as placed on admission, as patient reported he takes this. Discussed PDMP without recent rx despite being told filled in [employer]. Asked to find pharmacy used to confirm. Did see [facility], patient stated he DID NOT use this. No new rx for such, given prior admit Aug 2019 at [facility] discharged to inpatient [facility] for D&A, had been using benzo off the street (xanax 6-13 daily) to come down from crystal meth and rec f/u psychiatry outpatient -- DID give new rx for Doxepin 100mg, prazosin 2mg, depakote 500mg, lexapro 10mg daily as prior on these, changes made given prior sedation w/ incorrect med rec on admit after consultation w/ psych (2) Cellulitis of hand: (3) Diabetes type 1, uncontrolled: Elevated blood sugar - improved after IV hydration. 230 on admit, reported compliance with home insulin on admission but upon further questioning patient reported in move and not having insulin supplies also non-complaince and not wanting to check his sugars/wanting a Anita monitor Pharmacy consulted for glycemic management while inpatient -- had refused insulin injections at times during inpatient stay due to irritability Discussed with patient/significant other at bedside elevated A1c to 11.7, uncontrolled and risk factors for infection/poor wound healing and importance of complaince Given new rx for new pens, pen needle, and Anita Monitor. 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 Also asked to arrange for Endocrinology follow up (4) Depressed: Patient reportedly was on Adderall, Divalproex and Doxepin for mental health. (Earlier this year rx for Abilify and seroquel, but stated didn't take) On admission, was ordered Adderall , also doxepin 200mg daily -- had been quite sedated, review of medication with doxepin at 100mg, no prazosin 2mg ordered or lexapro 10mg Medications reconciled DISCONTINUED ADDERALL. Had rx for Straterra as above, did not want this. Discussed would not send rx at d/c but can discuss w/ psychiatry/PCP in follow up regarding evaluation for this and medications. Changed/ordered, and continued Lexapro 10mg, doxepin 100mg HS, Depakote 500mg, Prazosin 2mg HS -- new rxs sent at discharge for such He was agreeable and thankful for refills on his medications for bipolar/depression. Support provided. Encouraged getting better control on his health/medical problems given young age and dental hygiene professor side effects of non-compliance/elevated BSGs/etc (5) GERD (gastroesophageal reflux disease): Chronic. Stable on medications Continued Protonix 40mg po daily *Of note, mag prior to d/c 1.6 -- did order 2gm IV, got most of it, also PO mag oxide. Wanted to go prior to completion Smoking cessation counseling ordered Nicotine patch ordered Patient with history of polysubstance abuse - methamphetamine, benzo and marijuana use as well as EtOH. Presently denies use. no evidence for withdrawal during inpatient stay, had been over sedated from medications as above also declined wanting anything for nerves in day prior (6) Laceration of finger of right hand: (7) Burn of finger of right hand: Plan Dapto IV x 1 prior to d/c per discussion with ortho, continue Bactrim BID at discharge for total 14 days treatment. Elevate. Pain control. Monitor for any worsening/return to ER. F/u ortho 7 days New DM supplies/meds/meter sent New rx for psych meds confirmed, rec f/u outpatient. Resources provided CM to assist with arranging PCP this week and referral to Endocrinology Total Time Total Time Spent Total Time Spent (In Minutes): 140 Discharge Plan Discharge Items Patient Disposition: Home - Self-Care Reason For Visit: HAND INJURY, INFECTION Discharge Diagnosis: Hand infection, Flexor Tenosynovitis Goals: You have been hospitalized for an urgent problem which required surgery. During your stay at [facility], we have made an effort to correct the problem that brought you to the hospital while keeping you as comfortable as possible. Surgery and medications were used to bring your condition under control and your discharge instructions will include directions for any medications you should take after leaving the hospital. Please make sure to follow the advice of your surgeon regarding follow up with the surgeon and with your primary care provider. Activity: As commented below Non-emergency contact: Surgeon Call non-emergency contact if: your pain is not controlled, your pain is worsening and your temperature is above 101 Follow-up/Referrals: Lefty Graevs MD [Physician] - (Follow-up with Dr. Graves in 10 to 14 days from the day of surgery for your first postoperative wound check.) Ean Valiente MD [Outside Practitioners] - Diet: Carb Count or DM1 Addtl Attending Provider Instructions: You have been hospitalized for an infection to your right hand following injury. Orthopedics was consulted and you were taken to the OR for debridement. Cultures show MRSA. We would ideally have liked to arrange for IV antibiotics for two weeks, however was discussed with orthopedics and pharmacy and for wishes to discharge on oral antibiotics, they were tailored to Bactrim one tablet twice a day for 2 weeks total. THERE ARE TWO EXTRA TABLETS THAT YOU DO NOT NEED TO TAKE THIS PRESCRIPTION WAS SENT IN YESTERDAY. You have 11 days left twice a day. Orthopedics would like you to keep current dressing on for 48 hours and can change and cover with bandaid over incision following. Please do not submerge hand in water, but showering is ok and letting water run over the area. Please continue to elevated the hand to decrease swelling. You have been sent a short prescription for pain medication and can follow up with orthopedics or primary care if more pain control is required. Please follow up with your primary care provider in the next week to monitor your progress. Your blood sugars were elevated and your A1c was 11.7 indicating not having ideal control. This is likely due to not having supplies, but also would recommend watching carbohydrates more closely. I have sent refills for your lantus and and lispro for sliding scale and you should continue these at discharge and continue to monitor your sugars. Would further monitor closely/limit carbs. Elevated blood sugars are not ideal to promote good wound healing and it is preferred to keep <200 to ensure better healing/limit further infection. I have sent supplies for you at discharge and we will work on getting Endocrinology follow up. We have also sent in for Anita Monitor to use for 14 days. Please return to the ER with any fever, increased swelling, uncontrolled pain, increased drainage, or for any other symptoms concerning for you. Take care! Addtl Blade Operator Provider Instructions: ACTIVITY RECOMMENDATIONS: * Avoid lifting anything heavier than a medium water glass until your first post operative visit. SPECIAL CARE INSTRUCTIONS: * Your bandage should be left in place until 48 hours after surgery. The packing will need to be removed at the time of dressing change. * Some drainage onto the dressing may occur. This is normal. * If the bandage feels excessively tight, you may loosen the elastic bandage. Then call the physician's office for further instructions. * If possible, keep your hand elevated above the level of your heart for the first 2 post operative days. You may use a sling if necessary. * You should move your fingers regularly (50-100 motions per hour) unless otherwise instructed. * The dressing may be removed in 48 hours. Incisions may be covered with Band-Aids. SPECIAL PRECAUTIONS: * If you notice increased drainage, fever over 101 degrees F. or severe, unremitting pain, call your physician/office at . * You may have been prescribed pain medication. If you experience nausea and/or skin rash, discontinue this medication and contact our office for an alternative medication. FOLLOW UP VISIT: If appointment is not already scheduled: Please call [facility] to make a follow-up appointment for 10-14 days after your surgery at . Pending Studies at Discharge: Yes Studies:: Blood cultures -- NO GROWTH TO DATE Stand-Alone Forms: My [facility], Opioid Pain Management Medications and DC Order Prescriptions: New sulfamethoxazole-trimethoprim [Bactrim DS] 800-160 mg Tablet 1 tab PO BID 12 Days Qty: 24 0RF oxycodone-acetaminophen [Percocet] 5-325 mg Tablet 1 - 2 tab PO Q4H PRN (Reason: pain) Qty: 16 0RF (DME) FreeStyle Anita 14 Day Sensor Kit See Rx Instructions .Route Qty: 1 0RF Rx Instructions: As directed (DME) FreeStyle Anita 14 Day [place] Misc See Rx Instructions .Route Qty: 1 0RF Rx Instructions: As directed (DME) pen needle, diabetic [Pen Needle] 32 gauge x 5/32" needle See Rx Instructions .Route Qty: 100 0RF Rx Instructions: As directed Continued pantoprazole 40 mg Tablet,Delayed Release (Dr/Ec) 40 mg PO QAM Qty: 30 0RF (DME) diabetic supplies, miscellan. Misc See Rx Instructions .ROUTE .MEDSUPPLY Qty: 1 0RF Rx Instructions: As directed lisinopril 5 mg Tablet 5 mg PO DAILY doxepin 100 mg capsule 100 mg PO HS Qty: 30 0RF prazosin 2 mg Capsule 2 mg PO HS Qty: 30 0RF insulin lispro 100 unit/mL Insulin Pen 1 sliding scale dose SUBCUT USEASDIRECTD Qty: 15 0RF Rx Instructions: use with meals divalproex 250 mg tablet extended release 24 hr 500 mg PO QAM Qty: 30 0RF escitalopram oxalate 10 mg Tablet 10 mg PO DAILY Qty: 30 0RF Changed insulin glargine [Lantus Solostar U-100 Insulin] 100 unit/mL (3 mL) insulin pen 22 unit SC AMHS Qty: 15 0RF Discharge Orders: Discharge Order (Routine); Ordered 05/11/22 Ordered By: Kathleen Faria Admission Data Admit Date/Time: 05/09/22 14:28 Attending Provider: Mario Warren Admit Provider: Char Goode Primary Care Provider: PCP,NO Other Providers: Char Goode ; Lefty Graves ; Ashtyn Selby ; Sherry Koch ; Kate Eden Other Interventions: Discharge Summary Assessment (RN) Last Done: 05/11/22 14:19 Coding Level of Care Code D/C DAY MANAGEMENT >30 MINS Diagnoses Flexor tenosynovitis of finger M65.9 Cellulitis of hand L03.119 Diabetes type 1, uncontrolled E10.65 Depressed F32.9 GERD (gastroesophageal reflux disease) K21.9 Laceration of finger of right hand S61.219A Burn of finger of right hand T23.021A
== END 2022-05-11 15:04 | disposition home or self-care (01) | DRG 513 ==
LOC: 2W 19:05 → ED 19:05 → SUATTDRO 05-08 02:28 → 2W 05-08 04:26